=== PATIENT | female | born 2000 | race Caucasian/White ===

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

== ENCOUNTER 2021-10-07 21:13 | Emergency (ER) | payer OTHER, SELFPAY ==
--- NOTE | ~2021-10-07 | XR_ITS ---
EXAMINATION: XR chest 1V portable INDICATION: Cough and shortness of breath TECHNIQUE: Portable AP chest at 2357 hours COMPARISON: 07/06/2020 FINDINGS: The lungs are free of acute opacities. There is no pleural effusion or pneumothorax. The ca rdiomediastinal silhouette is normal. The visualized osseous structures are unremarkable. IMPRESSION: 1. No acute cardiopulmonary abnormality. 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
[2021-10-07 21:16] VITALS: BP 149/82; PULSE 90; RESP 18; TEMP 36.5; O2SAT 100
[2021-10-07 22:46] VITALS: BP 130/71; PULSE 89; RESP 15; O2SAT 99
[2021-10-08 00:12] VITALS: BP 132/73; PULSE 64; RESP 14; O2SAT 99
[2021-10-08] MEDS: SODIUM CHLORIDE 0.9% IV 1,000 ML 999 ML IV CONT (00:13)
[2021-10-08] MEDS: ONDANSETRON INJ 4 MG/2 ML VIAL IV PUSH (00:13)
[2021-10-08 00:29] LABS: Basophils Percent Auto 0.2 % (0.2-1.2); Eosinophils Absolute Auto 0.1 K/mm3 (0-0.3); Eosinophils Percent Auto 0.7 % (0-4.4); Hematocrit 39.7 % (37.0-47.0); Hemoglobin 13.2 g/dL (12.0-15.0); Immature Granulocyte Absolute 0.04 K/mm3 (0.00-0.031); Immature Granulocyte Percent A 0.4 % (0-0.5); Lymphocytes Absolute Auto 3.77 K/mm3 (0.9-3.2); Lymphocytes Percent Auto 35.6 % (18.3-44.2); Mean Corpuscular HGB Conc 33.2 g/dl (32-36); Mean Corpuscular Hemoglobin 29.4 pg (26-34); Mean Corpuscular Volume 88.4 fl (80-100); Mean Platelet Volume 9.4 fl (7.4-10.4); Monocytes Absolute Auto 1.5 K/mm3 (0.1-0.6); Monocytes Percent Auto 14.5 % (2.6-8.5); Neutrophils Absolute Auto 5.2 K/mm3 (1.3-6.7); Neutrophils Percent Auto 48.6 % (45.5-73.1); Platelet Count Result 335 k/mm3 (150-375); Red Blood Count 4.49 M/mm3 (4.2-5.4); Red Cell Distribution Width 14.1 % (11.5-14.5); White Blood Count 10.6 K/mm3 (4.5-10.0)
[2021-10-08 00:42] LABS: Alanine Aminotransferase 22 U/L (4-35); Albumin Level 4.4 g/dL (3.5-5.1); Alkaline Phosphatase 84 U/L (38-126); Anion Gap 12 mmol/L (8-16); Aspartate Amino Transferase 24 U/L (14-36); Bilirubin,Total 0.1 mg/dL (0.2-1.3); Blood Urea Nitrogen 7 mg/dL (7-17); Calcium 9.6 mg/dL (8.4-10.2); Carbon Dioxide 25 mmol/L (22-30); Chloride 101 mmol/L (98-107); Estimated CRCL calculation 141 ml/min; Estimated Glomerular Filt Rate > 60; Glucose 82 mg/dL (65-110); Lipase 39 U/L (23-300); Potassium 3.9 mmol/L (3.4-5.0); Sodium 138 mmol/L (137-145)
--- NOTE | 2021-10-08 00:53 | ED.GENADULT ---
HPI - General Adult General Chief complaint: Abdominal Pain Stated complaint: abdominal and chest pain Time Seen by Provider: 10/07/21 23:21 History of Present Illness HPI narrative: Patient is a 21-year-old female who presents ER with cough and cold. Ongoing for last 5 days. No fevers or chills or sweats. No loss of taste or smell. No known sick contacts. She is unvaccinated against COVID-19. She started to have some aching in her upper abdomen as well as bloating. She endorses nausea that is daily. Patient is 8 weeks along in her . No vaginal bleeding or leakage of fluid. She has had a ultrasound that showed a intrauterine gestational sac. She has establish care with an OB and is scheduled to be seen. Related Data Home Medications Medication Instructions Recorded Confirmed norelgestromin-ethin.estradiol 1 patch TRANSDERMAL WEEKLY 07/06/20 07/06/20 [Xulanmurali] Allergies Allergy/AdvReac Type Severity Reaction Status Date / Time No Known Drug Allergies Allergy Unknown Verified 10/07/21 22:40 Review of Systems Review of Systems: All systems reviewed & are unremarkable except as noted in HPI and below Constitutional: Constitutional: Denies chills, Reports fatigue and Denies fever(s) ENT: Reports nasal congestion and Denies sore throat Respiratory: Respiratory: Reports cough, Denies dyspnea and Denies wheezing Gastrointestinal: Gastrointestinal: Reports abdominal pain (Upper), Denies nausea and Denies vomiting Genitourinary: Genitourinary: Denies abnormal vaginal bleeding, Denies nocturia, Denies dysuria, Denies pelvic pain and Denies vaginal discharge PMFSH Past Medical History Medical History (Updated 10/08/21 @ 02:04 by Ebenezer Gonsales MD) Obese Polycystic ovarian syndrome Surgical History Surgical History (Updated 10/08/21 @ 02:02 by Ebenezer Gonsales MD) No pertinent past surgical history Social History Social History Gender identity (if verbalized by the patient): Female Exam Narrative: GENERAL: Well-appearing, well-nourished, and in no acute distress. HEAD: Normocephalic, atraumatic. CHEST: Clear to auscultation. No respiratory distress. HEART: Regular rate and rhythm. Normal peripheral pulses. ABDOMEN: Soft, nontender, nondistended. EXTREMITIES: Normal range of motion. No edema. SKIN: Warm, dry, no rash. NEURO: Alert and oriented x3. PSYCH: Normal mood and affect. Course Course Emergency Course: Exam unremarkable. Labs reviewed. Chest x-ray without pneumonia. Will swab for Covid. Discharge home. Vital Signs Vital signs: Vital Signs Temperature 97.7 F 10/07/21 21:16 Pulse Rate 90 10/07/21 21:16 Respiratory Rate 18 10/07/21 21:16 Blood Pressure 149/82 H 10/07/21 21:16 Pulse Oximetry 100 10/07/21 21:16 Temperature 97.7 F 10/07/21 21:16 Pulse Rate 89 10/08/21 01:17 Respiratory Rate 20 10/08/21 01:17 Blood Pressure 130/73 10/08/21 01:17 Pulse Oximetry 100 10/08/21 01:17 Medical Decision Making Vital Signs Vital Signs: Vital Signs Temperature 97.7 F 10/07/21 21:16 Pulse Rate 90 10/07/21 21:16 Respiratory Rate 18 10/07/21 21:16 Blood Pressure 149/82 H 10/07/21 21:16 Pulse Oximetry 100 10/07/21 21:16 Temperature 97.7 F 10/07/21 21:16 Pulse Rate 89 10/08/21 01:17 Respiratory Rate 20 10/08/21 01:17 Blood Pressure 130/73 10/08/21 01:17 Pulse Oximetry 100 10/08/21 01:17 Lab Data Result diagrams: 10/08/21 00:04 10/08/21 00:04 Labs: Lab Results 10/08/21 10/08/21 Range/Units 00:04 00:04 WBC 10.6 H (4.5-10.0) K/mm3 RBC 4.49 (4.2-5.4) M/mm3 Hgb 13.2 (12.0-15.0) g/dL Hct 39.7 (37.0-47.0) % MCV 88.4 (80-100) fl MCH 29.4 (26-34) pg MCHC 33.2 (32-36) g/dl RDW 14.1 (11.5-14.5) % Plt Count 335 (150-375) k/mm3 MPV 9.4 (7.4-10.4) fl Immature Gran % (Auto) 0.4 (0-0.5) % Neut % (Auto) 48.6 (45.5-73.1) %
[2021-10-08 01:17] VITALS: BP 130/73; PULSE 89; RESP 20; O2SAT 100
[2021-10-08 02:29] VITALS: BP 118/60; PULSE 78; RESP 16; O2SAT 98
[2021-10-08 14:05] LABS: SARS-CoV-2 RNA PCR Positive
== END 2021-10-08 02:30 | disposition home or self-care (01) ==
PROVIDERS: Emergency Provider Emergency Medicine
DX: O98.511 Other viral diseases complicating pregnancy, first trimester (principal); U07.1 COVID-19; O99.281 Endocrine, nutritional and metabolic diseases complicating pregnancy, first trimester; E28.2 Polycystic ovarian syndrome; O99.211 Obesity complicating pregnancy, first trimester; E66.9 Obesity, unspecified; Z3A.08 8 weeks gestation of pregnancy
CPT/HCPCS: 36415; 71045; 80053; 83690; 85025; 96361; 96374; 99284; C9803; J2405; J7030; U0003; U0005

== ENCOUNTER 2022-02-17 07:59 | Emergency (ER) | payer OTHER, SELFPAY ==
--- NOTE | ~2022-02-17 | XR_ITS ---
XR hip LT min 2V DATE: 02/17/2022 08:35 INDICATION: Sharp left hip pain starting at 4:00 AM today. No injury. 27 week gravid patient. TECHNIQUE: AP and lateral views with gonadal shielding COMPARISON: None FINDINGS: No fracture or dislocation, avascular necrosis or bone destruction. Left hip joint space ap pears well preserved. IMPRESSION: Negative Reviewed, dictated and finalized at location B. IMPRESSION: Negative
[2022-02-17 08:05] VITALS: BP 123/68; PULSE 98; RESP 17; TEMP 36.8; O2SAT 99
--- NOTE | 2022-02-17 09:16 | ED.EXTPRO ---
HPI - Extremity Problem General Chief complaint: Extremity Problem,Nontraumatic Stated complaint: left hip/leg pain Time Seen by Provider: 02/17/22 08:48 Source: patient Mode of arrival: ambulatory Limitations: no limitations History of Present Illness HPI Narrative: 21-year-old female presents with left hip pain. Patient states she woke up at 4 AM with the pain. Patient denies any injury or trauma. Patient states she has a history of hip problems in the past. Patient took Tylenol with no relief. Patient denies any urinary symptoms. No other complaints MD Complaint: extremity pain Onset (ago): hour(s) (5) Pain Consistency: constant Location: left Radiation: proximal (Lower back) and distal (Left knee) Associated symptoms: denies other symptoms Related Data Home Medications Medication Instructions Recorded Confirmed norelgestromin-ethin.estradiol 1 patch TRANSDERMAL WEEKLY 07/06/20 07/06/20 [Xulane] Allergies Allergy/AdvReac Type Severity Reaction Status Date / Time No Known Drug Allergies Allergy Unknown Verified 02/17/22 08:09 Review of Systems Review of Systems: Normal GENERAL: Well-appearing, well-nourished, and in no acute distress. HEAD: Normocephalic, atraumatic. EYES: PERRLA and EOMI. ENT: Nares clear, no rhinorrhea or epistaxis. Mucous membranes moist. NECK: Supple. CHEST: Clear to auscultation. No respiratory distress. HEART: Regular rate and rhythm. No murmur heard. Normal peripheral pulses. ABDOMEN: Soft, nontender, nondistended, normal active bowel sounds. EXTREMITIES: Left hip. SKIN: Warm, dry, no rash. NEURO: No focal deficits. Alert and oriented x3. PSYCH: Normal mood and affect. PMFSH Past Medical History Medical History (Updated 02/17/22 @ 09:53 by Isauro Doyle APRN) Obese Polycystic ovarian syndrome Surgical History Surgical History (Updated 10/08/21 @ 02:02 by Ebenezer Gonsales MD) No pertinent past surgical history Social History Social History Gender identity (if verbalized by the patient): Female Exam Narrative: General appearance: Well-developed, well-nourished Skin: Normal color Head: Normocephalic, nontraumatic Eyes: Clear conjunctiva ENT: Oropharynx normal, ears normal, nose normal Neck: Supple, nontender Chest and respiratory: Airway patent, no respiratory distress, no accessory muscle use Heart: Regular rate/rhythm Abdomen: Soft, nontender, no organomegaly, quiet bowel sounds Vascular: Normal peripheral pulses, normal capillary refill. Musculoskeletal: Normal range of motion, nontender back, tenderness to left lateral hip, left lateral lumbar spine, good range of motion the left hip with no clicking. Neurologic: Alert and oriented ?3, JDE DEVELOPER is normal as tested, no gross motor deficit Course Course Emergency Course: Patient had good relief from pain medicine. Will treat as sciatica. Reevaluation(s) Reevaluation #1: Pain is better. Date: 02/17/22 Time: 09:51 Vital Signs Vital signs: Vital Signs Temperature 36.8 C 02/17/22 08:05 Pulse Rate 98 02/17/22 08:05 Respiratory Rate 17 02/17/22 08:05 Blood Pressure 123/68 02/17/22 08:05 Pulse Oximetry 99 02/17/22 08:05 Temperature 36.8 C 02/17/22 08:05 Pulse Rate 98 02/17/22 08:05 Respiratory Rate 17 02/17/22 08:05 Blood Pressure 123/68 02/17/22 08:05 Pulse Oximetry 99 02/17/22 08:05 MDM - Extremity (Nontraumatic) MDM Narrative Medical decision making narrative: Pain appears coming from left lower back. Sciatic nerve is inflamed. Will treat with steroids, muscle relaxers and exercise. Differential Diagnosis Differential diagnosis: Likely other (Left hip trauma versus left hip bu
[2022-02-17] MEDS: KETOROLAC (*BKC) 60 MG/2 ML VIAL IM (09:28)
[2022-02-17] MEDS: ONDANSETRON HCL ODT 4 MG TABLET PO (09:28)
[2022-02-17] MEDS: CYCLOBENZAPRINE HCL 10 MG TABLET PO (09:28)
[2022-02-17 10:02] VITALS: RESP 16
== END 2022-02-17 10:03 | disposition home or self-care (01) ==
PROVIDERS: Emergency Provider Nurse Practitioner Family; PCP Advanced Practice Midwife
DX: M54.30 Sciatica, unspecified side (principal); M25.552 Pain in left hip
CPT/HCPCS: 73502; 96372; 99283; A9270; J1885

== ENCOUNTER 2022-04-30 11:41 | Outpatient (CLI) | payer OTHER, SELFPAY ==
[2022-04-30 12:22] LABS: Alanine Aminotransferase 12 U/L (6-35); Albumin Level 3.6 g/dL (3.5-5.1); Alkaline Phosphatase 154 U/L (38-126); Anion Gap 5 mmol/L (8-16); Aspartate Amino Transferase 14 U/L (14-36); Bilirubin,Total 0.2 mg/dL (0.2-1.3); Blood Urea Nitrogen 4 mg/dL (7-17); Calcium 8.6 mg/dL (8.4-10.2); Carbon Dioxide 23 mmol/L (22-30); Chloride 108 mmol/L (98-107); Estimated Glomerular Filt Rate > 60; Glucose 89 mg/dL (65-110); Potassium 4.4 mmol/L (3.4-5.0); Sodium 136 mmol/L (137-145)
[2022-05-07 15:21] LABS: Chenodeoxycholic Acid 0.5 umol/L (< OR = 3.9); Cholic Acid <0.5 umol/L (< OR = 2.8); Deoxycholic Acid <0.5 umol/L (< OR = 2.3); Total Bile Acids <1.5 umol/L (< OR = 8.3)
== END 2022-04-30 11:42 | disposition home or self-care (01) ==
PROVIDERS: Visit Provider Advanced Practice Midwife
DX: L29.9 Pruritus, unspecified (principal)
CPT/HCPCS: 36415; 80053; 82542

== ENCOUNTER 2022-05-02 19:07 | Inpatient (IN) | payer OTHER, SELFPAY ==
--- OUTSIDE RECORDS SUMMARY | 2022-05-02 19:13 | XMS_ITS ---
:2000 Author Care Team Providers Name Role Phone Chiquita Mcneil Primary Care Provider Unavailable Allergies Code Code System Name Reaction Severity Status Onset NKDA ? Medications Name Status Start Date Stop Date ? ? amoxicillin 500 mg tablet Completed ? 2021 TAKE 1 TABLET BY MOUTH TWICE DAILY Baby Aspirin Active ? Not available COVID-19 test specimen collection Completed ? 10/19/2021 TEST DIRECTED TODAY cyclobenzaprine 10 mg tablet Active ? Not available TAKE 1 TABLET BY MOUTH THREE TIMES DAILY NEEDED FOR MUSCLE S PASM ID NOW COVID-19 Test Kit Completed ? 022 DIRECTED prednisone 10 mg tablet Completed ? 10/19/19 22 prednisone 20 mg tablet Active ? Not avai lable Active ? Not available promethazine 25 mg tablet Completed ? 2021 TAKE 1 TABLET BY MOUTH EVERY 6 HOURS NEEDED Problems Name Status Onset Date Source ? Body Mass Index 30+ - Obesity Active 10/19/2021 ? Polycystic Ovary Syndrome Active 10/19/2021 ? Marijuana User Active 10/19/2021 ? Active 11/09/2021 ? History of SARS-CoV-2 Active ? ? Procedures Date Name Performed by ? 10/09/2018 Colonoscopy Information not avai lable 10/09/2017 Colonoscopy Information not avai lable 11/09/2021 US, Obstetric, Nuchal Translucency Marykelly wetzel [address] [place] [address] ([address]) 01/04/2022 US, Obst
--- OUTSIDE RECORDS SUMMARY | 2022-05-02 19:13 | XMS_ITS ---
:2000 Author Care Team Providers Name Role Phone ZOLTAN WALDROP MD Senior Compensation Consultant [phone] Allergies Code Code System Name Reaction Severity Status Onset NKDA ? Medications Name Status Start Date Stop Date ? ? amitriptyline 10 mg tablet Completed ? 12/05 azithromycin 250 mg tablet Completed ? 11/20 cefprozil 500 mg tablet Completed ? 04/30/20 19 citalopram 20 mg tablet Completed ? 04/30/20 19 etodolac ER 500 mg tablet,extended release 24 hr Active ? Not available famotidine 10 mg tablet Completed ? 08/24/20 17 hyoscyamine 0.125 mg sublingual tablet Completed ? 04/30/2019 ibuprofen 400 mg tablet Active ? Not avai lable medroxyprogesterone 150 mg/mL intramuscular suspension Completed ? 04/30/2019 metformin 500 mg tablet Active ? Not avai lable Mononessa (28) 0.25 mg-35 mcg tablet Completed ? 11/20/2017 mupirocin 2 % topical ointment Completed ? 1 10/24/2016 naproxen 500 mg tablet Completed ? 8 Nexplanon 68 mg subdermal implant Unknown ? Not available Inject 1 implant by subcutaneous route. nitrofurantoin monohydrate/macrocrystals 100 mg capsule Complete d ? 08/24/2017 ofloxacin 0.3 % ear drops Completed ? 2016 omeprazole 40 mg capsule,delayed release Completed ? 12/05/2019 ondansetron 4 mg disintegrating tablet Completed ? 04/30/2019 penicillin V potassium 500 mg tablet Completed ? 04/30/2019 polyethylene glycol 3350 17 gram/dose oral powder Completed ? 04/30/2019 sertraline 25 mg tablet Completed ? 08/24/20 17 sulfamethoxazole 400 mg-trimethoprim 80 mg tablet Completed ? 08/24/2017 Xulane 150 mcg-35 mcg/24 hr transdermal patch Active ? Not available APPLY 1 PATCH EXTERNALLY TO THE
--- OUTSIDE RECORDS SUMMARY | 2022-05-02 19:13 | XMS_ITS | Encounter Summary ---
:2000 Author Reason for Visit OB visit OB [id number] EDC 05/20/2022 LMP 08/13/2021 Assessment and Plan Assessment Note Patient is _36__weeks . Discuss ed plan. 1. Routine care Discussion Note: None recorded.Patient educational handouts: No information available. Plan of Care Reminders Provider Appointments None recorded. ? ? Lab None recorded. ? ? Referral None recorded. ? ? Procedures None recorded. ? ? Surgeries None recorded. ? ? Imaging None recorded. ? ? Medications Name Start Date ? ? Baby Aspirin ? cyclobenzaprine 10 mg tablet ? TAKE 1 TABLET BY MOUTH THREE TIMES DAILY NEEDED FO R MUSCLE SPASM prednisone 20 mg tablet ? ? Medications Administered None recorded. Vitals Height Weight BMI Blood Pressure 5 ft 3 in 223 lbs 39.5 kg/m2 117/79 mm[Hg] Results Lab Results None recorded. Allergies Code Code System Name Reaction Severity Onset NKDA ? ? ? Problems Name Status Onset Date Source ? Body Mass Index 30+ - Obesity Active 10/19/2021 ? Polycystic Ovary Syndrome Active 10/19/2021 ? Marijuana User Active 10/19/2021 ? Active 11/09/2021 ? History of SARS-CoV-2 Active ? ? Procedures Date Name Performed by ? 10/09/2018 Colonoscopy Information not avai lable 10/09/2017 Colonoscopy Information not avai lable 03/30/2022 US, Obstetric, Follow-up [place]
--- OUTSIDE RECORDS SUMMARY | 2022-05-02 19:14 | XMS_ITS | Encounter Summary ---
:2000 Author Reason for Visit OB visit Assessment and Plan 1. Routine care Discussion Note: None recorded.Patient [...] BMI Blood Pressure 5 ft 3 in 216 lbs 38.3 kg/m2 127/83 mm[Hg] Results Lab Results None recorded. Allergies [...] lable 10/09/2017 Colonoscopy Information not avai lable 03/02/2022 US, Obstetric, Follow-up [place] [address] [place] [address] ([facility] [employer]
--- OUTSIDE RECORDS SUMMARY | 2022-05-02 19:14 | XMS_ITS | Encounter Summary ---
:2000 Author Reason for Visit None recorded. Assessment and Plan None recorded.Discussion Note: None recorded.Patient educational handouts: No information [...] ? ? Medications Administered None recorded. Vitals None recorded. Results Lab Results None recorded. Allergies Code [...] not avai lable 03/30/2022 US, Obstetric, Follow-up [place] [address] [place] [address] ([address]) Vaccine List None recorded. Social History Tobacco Smoking Status Never Smoker What is the highest grade or level of school you have comp
--- OUTSIDE RECORDS SUMMARY | 2022-05-02 19:14 | XMS_ITS | Encounter Summary ---
:2000 Author Reason for Visit None recorded. Assessment and Plan 1. COVID-19 ? US, obstetric, follow-up Discussion Note: None recorded.Patient educational handouts: No information available. Plan of Care Reminders Provider Appointments None recorded. ? ? Lab None recorded. ? ? Referral None recorded. ? ? Procedures None recorded. ? ? Surgeries None recorded. ? ? Imaging US, Obstetric, Follow-up 04/27/2022 John wetzel Medications Name Start Date ? ? Baby [...] not avai lable 03/30/2022 US, Obstetric, Follow-up [place] [address] [place] [address] ([address]) 04/27/2022 US, Obstetric, Follow-up [facility]
--- OUTSIDE RECORDS SUMMARY | 2022-05-02 19:14 | XMS_ITS | Encounter Summary ---
:2000 Author Reason for Visit OB visit OB [id number] EDC 05/20/2022 LMP 08/13/2021 Assessment and Plan Assessment Note Patient is _24__weeks . Discuss ed plan. 1. Routine care [...] ft 3 in 216 lbs 38.3 kg/m2 131/83 mm[Hg] Results Lab Results None recorded. Allergies [...] lable 10/09/2017 Colonoscopy Information not avai lable 01/04/2022 US, Obstetric, 2Nd or 3Rd Trimester Sanjuana marshall
--- OUTSIDE RECORDS SUMMARY | 2022-05-02 19:14 | XMS_ITS | Encounter Summary ---
:2000 Author Reason for Visit OB visit OB [id number] EDC 05/20/2022 LMP 08/13/2021 Assessment and Plan Assessment Note Patient is ___weeks . Discussed plan. Discussion Note: None recorded.Patient educational handouts: No [...] BMI Blood Pressure 5 ft 3 in 218 lbs 38.6 kg/m2 115/74 mm[Hg] Results Lab Results None recorded. Allergies [...] 10/09/2017 Colonoscopy Information not avai lable 03/02/2022 , Obstetric, Follow-up [place] [address]
--- OUTSIDE RECORDS SUMMARY | 2022-05-02 19:14 | XMS_ITS | Encounter Summary ---
:2000 Author Reason for Visit None recorded. Assessment and Plan 1. screening ? US, obstetric, follow-up Discussion Note: None recorded.Patient educational handouts: No information available. Plan of Care Reminders Provider Appointments None recorded. ? ? Lab None recorded. ? ? Referral None recorded. ? ? Procedures None recorded. ? ? Surgeries None recorded. ? ? Imaging US, Obstetric, Follow-up 02/02/2022 John wetzel Medications Name Start Date ? [...] Obstetric, 2Nd or 3Rd Trimester Sanjuana marshall [address] [place] [address] ([address]) 02/02/2022
--- OUTSIDE RECORDS SUMMARY | 2022-05-02 19:14 | XMS_ITS | Encounter Summary ---
:2000 Author Reason for Visit OB visit OB [id number] EDC 05/20/2022 LMP 08/13/2021 Assessment and Plan Assessment Note Patient is _34__weeks . Discuss ed plan. 1. Routine care [...] BMI Blood Pressure 5 ft 3 in 220 lbs 39 kg/m2 131/85 mm[Hg] Results Lab Results None recorded. Allergies [...] not avai lable 03/30/2022 US, Obstetric, Follow-up [place]
--- OUTSIDE RECORDS SUMMARY | 2022-05-02 19:14 | XMS_ITS | Encounter Summary ---
:2000 Author Reason for Visit None recorded. Assessment and Plan 1. Pre-existing maternal disease compli cating ? US, obstetric, follow-up Discussion Note: None recorded.Patient educational handouts: No information available. Plan of Care Reminders Provider Appointments None recorded. ? ? Lab None recorded. ? ? Referral None recorded. ? ? Procedures None recorded. ? ? Surgeries None recorded. ? ? Imaging US, Obstetric, Follow-up 03/02/2022 John wetzel Medications Name Start Date ? [...] lable 10/09/2017 Colonoscopy Information not avai lable 02/02/2022 US, Obstetric, Follow-up [place] [address] [place] [address] ([address]) 0
--- OUTSIDE RECORDS SUMMARY | 2022-05-02 19:14 | XMS_ITS | Encounter Summary ---
:2000 Author Reason for Visit OB visit OB [id number] EDC 05/20/2022 lmp 08/13/2021 Assessment and Plan Assessment Note Patient is __28_weeks . Discuss ed plan. 1. Routine care [...] BMI Blood Pressure 5 ft 3 in 219 lbs 38.8 kg/m2 125/82 mm[Hg] Results Lab Results None recorded. Allergies [...] not avai lable 02/02/2022 US, Obstetric, Follow-up [place]
[2022-05-02 19:43] VITALS: BMI 39.4
[2022-05-02 21:14] VITALS: BP 112/50; PULSE 60; TEMP 36.4
[2022-05-02 21:23] LABS: Hematocrit 36.2 % (37.0-47.0); Hemoglobin 11.8 g/dL (12.0-15.0); Mean Corpuscular HGB Conc 32.6 g/dl (32-36); Mean Corpuscular Hemoglobin 28.2 pg (26-34); Mean Corpuscular Volume 86.6 fl (80-100); Mean Platelet Volume 9.7 fl (7.4-10.4); Platelet Count Result 323 k/mm3 (150-375); Red Blood Count 4.18 M/mm3 (4.2-5.4); Red Cell Distribution Width 14.9 % (11.5-14.5); White Blood Count 21.1 K/mm3 (4.5-10.0)
[2022-05-02 21:40] LABS: Band Neutrophils Percent 4 % (0-6); Lymphocytes Absolute Manual 2.95 K/mm3 (1.1-4.5); Monocytes Absolute Manual 1.26 K/mm3 (0.1-0.90); Monocytes Percent Manual 6 % (3-9); Neutrophils Absolute Manual 16.88 K/mm3 (1.7-7.2); Neutrophils Percent Manual 76 % (46-73); Total Cells Counted 100
[2022-05-02 21:41] LABS: Amphetamine Screen Urine Negative (Negative); Anisocytosis 1+ (NORMAL); Barbiturate Screen Urine Negative (Negative); Benzodiazepines Screen Urine Negative (Negative); Cannabinoid Screen Urine Positive (Negative); Cocaine Screen Urine Negative (Negative); Methadone Screen Urine Negative (Negative); Opiate Screen Urine Negative (Negative); Phencyclidine Screen Urine Negative (Negative); Platelet Estimate Adequate (Adequate)
[2022-05-03] VITALS (144 sets, daily range): BP systolic 58–176; BP diastolic 37–115; PULSE 56–156; RESP 16; TEMP 35.7–37.2; O2SAT 90–100
--- NOTE | 2022-05-03 01:40 | WPDANESEPP ---
Anes - Eval Pre Procedure Procedure: labor epidural Date/Time: 05/03/22 01:40 Surgeon: carlos Preop Diagnosis: pain during labor Pre Op Diagnosis: IOL Patient Data Age: 22 Gender: F Height: 1.6 m Weight: 101 kg Last Vital Signs Temp 36.4 C 05/02/22 21:14 Pulse 60 05/02/22 21:14 BP 112/50 L 05/02/22 21:14 O2 Del Method Room Air 05/02/22 19:43 Allergies Allergy/AdvReac Type Severity Reaction Status Date / Time No Known Drug Allergies Allergy Unknown Verified 02/17/22 08:09 Home Medications Medication Instructions Recorded Confirmed Type aspirin 81 mg tablet 81 mg PO DAILY 04/27/22 04/27/22 History prenat.vits,brian,[id number] 1 tablet PO DAILY 04/27/22 04/27/22 History Laboratory Tests 05/02/22 05/02/22 05/02/22 19:37 19:37 19:37 WBC 21.1 K/mm3 H K/mm3 (4.5-10.0) RBC 4.18 M/mm3 L M/mm3 (4.2-5.4) Hgb 11.8 g/dL L g/dL (12.0-15.0) Hct 36.2 % L % (37.0-47.0) MCV 86.6 fl fl (80-100) MCH 28.2 pg pg (26-34) MCHC 32.6 g/dl g/dl (32-36) RDW 14.9 % H % (11.5-14.5) Plt Count 323 k/mm3 k/mm3 (150-375) MPV 9.7 fl fl (7.4-10.4) Immature Gran % (Auto) Not Reportable Neut % (Auto) Not Reportable Lymph % (Auto) Not Reportable Atkinson % (Auto) Not Reportable Eos % (Auto) Not Reportable Baso % (Auto) Not Reportable Lymph # (Auto) Not Reportable Atkinson # (Auto) Not Reportable Eos # (Auto) Not Reportable Baso # (Auto) Not Reportable Abs Immat Gran (auto) Not Reportable Absolute Neuts (auto) Not Reportable Absolute Nucleated RBC Not Reportable Total Counted 100 Neutrophils % (Manual) 76 % H % (46-73) Band Neutrophils % 4 % % (0-6) Lymphocytes % (Manual) 14.0 % L % (18-44) Monocytes % (Manual) 6 % % (3-9) Nucleated RBC % Not Reportable Abs Neuts (Manual) 16.88 K/mm3 H K/mm3 (1.7-7.2) Abs Lymphs (Manual) 2.95 K/mm3 K/mm3 (1.1-4.5) Abs Monocytes (Manual) 1.26 K/mm3 H K/mm3 (0.1-0.90) Platelet Estimate Adequate (Adequate) Anisocytosis 1+ (NORMAL) Urine Opiates Screen Urine Methadone Screen Ur Barbiturates Screen Ur Phencyclidine Scrn Ur Amphetamine Screen U Benzodiazepines Scrn Urine Cocaine Screen U Cannabinoids Screen RPR Pending Blood Type A Positive Antibody Screen Negative 05/02/22 19:37 WBC RBC Hgb Hct MCV MCH MCHC RDW Plt Count MPV Immature Gran % (Auto) Neut % (Auto) Lymph % (Auto) Atkinson % (Auto) Eos % (Auto) Baso % (Auto) Lymph # (Auto) Atkinson # (Auto) Eos # (Auto) Baso # (Auto) Abs Immat Gran (auto) Absolute Neuts (auto) Absolute Nucleated RBC Total Counted Neutrophils % (Manual) Band Neutrophils % Lymphocytes % (Manual) Monocytes % (Manual) Nucleated RBC % Abs Neuts (Manual) Abs Lymphs (Manual) Abs Monocytes (Manual) Platelet Estimate Anisocytosis Urine Opiates Screen Negative (Negative) Urine Methadone Screen Negative (Negative) Ur Barbiturates Screen Negative (Negative) Ur Phencyclidine Scrn Negative (Negative) Ur Amphetamine Screen Negative (Negative) U Benzodiazepines Scrn Negative (Negative) Urine Cocaine Screen Negative (Negative) U Cannabinoids Screen Positive A (Negative) RPR Blood Type Antibody Screen Patient hx anesthesia problems: none Family hx anesthe
[2022-05-03] MEDS: ACETAMINOPHEN 500 MG TABLET 1000 MG PO (02:28)
[2022-05-03] MEDS: FAMOTIDINE 20 MG TABLET PO (02:29)
[2022-05-03 05:58] LABS: Rapid Plasma Reagin Non-Reactive (NonReactive)
[2022-05-03] MEDS: OXYTOCIN 30 UNITS/NS 500 ML 30 UNITS/500 ML BAG 6 UNITS IV CONT (06:41)
[2022-05-03] MEDS: LACTATED RINGERS 1,000 ML 125 ML IV CONT ×2 (06:41→13:42)
[2022-05-03] MEDS: ONDANSETRON INJ 4 MG/2 ML VIAL IV PUSH ×2 (08:41→23:37)
--- NOTE | 2022-05-03 09:46 | WPDOBADMIT ---
Obstetrics - Admit Note Admission Note: record reviewed. No pertinent additions to the history and/or any subsequent changes in the physical findings that are not consistent with the expected course of the were found. IOL cholestasis, SVE /-2 moderate amount of clear odorless fluid Additions to the history and/or subsequent changes in the physical findings follow. None.
[2022-05-03] MEDS: fentaNYL CITRATE INJ (*CRX) 100 MCG/2 ML VIAL IV PUSH ×2 (12:45→15:46)
[2022-05-03] MEDS: MAGNESIUM SULF 4 GM/WATER100ML 4 GM/100 ML BAG IVPB (14:38)
[2022-05-03] MEDS: MAGNESIUM SULF 20GM/WATER500ML 500 ML 50 MG IV CONT (15:07)
[2022-05-03] MEDS: CALCIUM CARBONATE (TUMS) 500 MG (200 MG ELEMENTAL) (23:41)
[2022-05-04] VITALS (137 sets, daily range): BP systolic 75–154; BP diastolic 50–119; PULSE 31–197; RESP 16–20; TEMP 35.9–36.9; O2SAT 86–100
[2022-05-04] MEDS: LACTATED RINGERS 1,000 ML 75 ML IV CONT (00:22)
[2022-05-04] MEDS: MAGNESIUM SULF 20GM/WATER500ML 500 ML 50 MG IV CONT ×2 (01:01→11:06)
[2022-05-04] MEDS: AMPICILLIN 2 GM/NS 100 ML 2 GM/100 ML BAG IVPB (02:55)
--- NOTE | 2022-05-04 07:09 | PM.OBPRVD ---
OB - Delivery Note Procedure Delivery date: 05/04/22 Events: Gestational Hypertension and Other (Cholestasis) Induction method: AROM, Per Pitocin Protocol and Per Cervidil Protocol Delivery monitor: External FHT, External Uterine and Internal Uterine Route of delivery: Episiotomy description: None Laceration Description: None Specimen: Yes Quantitative Blood Loss (ml): 47 Anesthesia type: Epidural Disposition: Floor [place] Baby Date of : 05/04/22 Time of : 06:56 Weeks of gestation at delivery: 37 gender: Male Weight (pounds): 5 Weight (ounces): 9 presentation: vertex position: Left Occiput Anterior Placenta delivery description: Spontaneous Cord Vessel Description: 3 Vessels, Nuchal Cord (x1), Reduced and Delayed Cord Clamping score one minute: 8 score five minutes: 9
[2022-05-04] MEDS: OXYTOCIN 30 UNITS/NS 500 ML 30 UNITS/500 ML BAG 75 UNITS IV CONT (07:18)
[2022-05-04] MEDS: BENZOCAINE 20% AER SPR (*SP) 56 GM CAN 1 SPRAY TOPICAL (08:21)
[2022-05-04] MEDS: WITCH HAZEL 40 PADS 1 PAD TOPICAL (08:21)
[2022-05-04] MEDS: IBUPROFEN 600 MG TABLET PO ×2 (08:45→23:16)
--- NOTE | 2022-05-04 14:00 | PC.NURSE ---
1052 - 1130 Introductions were made, then consulted with patient to assess needs related to . is being held by a visitor and father of baby is sleeping. Mother with a MIL for cholestasis, epidural, obese, PCOS, and Magnesium Sufate led the conversation with her experience feeding her infant so far and states infant fed well downstairs. Mother works well with her infant with encouragement and education. Encouraged understanding of the benefits of skin to skin (unwrapping and placing vertically on her chest), responsive feeding and how to watch for early feeding signs, frequency of feeding on demand about every 8-12 times in 24 hours (every 2-3 hours), milk production, duration of feeding, signs of adequate intake/output and how to record on the feeding sheet. Reviewed positioning and ear, shoulder, hip alignment, supporting the breast, asymmetrical latch (off-center), and leading with the chin with a big open side gape. was encouraged with these techniques and did not attempt to open mouth or show feeding cues. Mother demonstrated understanding of hand expression and was syringe fed 0.5 mls of colostrum while practicing sucking on a gloved finger. rarely sucks and holds tongue up to the roof of his mouth. When infant sucked he was encouraged with colostrum. After attempts, encouragement for skin to skin, mother states she is going to feed breast and bottle. RN returns to the room and is being held by a visitor when a breast pump is provided due to ineffective . Instructions given on cleaning, care, usage, that there should be no pain, pumping schedule for milk production, collection, and storage of human milk. Parents are encouraged to record pumping schedule on the feeding sheet. Patient was assessed for correct placement, flange size, to pump for comfort and nipple stretching/stimulation for adequate milk production every 3 hours (8 times in 24 hours). Mother voiced understanding of the education shared. Resources used to facilitate learning were used with the mom and baby guide. Mother voiced understanding of responsive feedings, stimulating with skin to skin, hand expressed colostrum, touch, talking to to encourage if it has been 2 -3 hours since the start of the last , to call if infant does not latch or there is discomfort with . Reported to the primary RN.
[2022-05-04] MEDS: ACETAMINOPHEN 325 MG TABLET 650 MG PO (14:19)
[2022-05-04] MEDS: MULTIVIT/MIN/PREN/FOL AC/IRON TABLET 1 TAB PO (14:20)
[2022-05-04] MEDS: DOCUSATE SODIUM 100 MG CAPSULE PO (14:20)
[2022-05-04] MEDS: TETANUS,DIPHTHERIA,AC PERTUSSIS ADULT (0.5 ML) BOOSTRIX IM (21:41)
[2022-05-04] MEDS: LANOLIN (LANSINOH) 7.5 GM CREAM 1 APPLIC TOPICAL (21:42)
[2022-05-05] MEDS: ACETAMINOPHEN 325 MG TABLET 650 MG PO ×3 (00:28→23:10)
[2022-05-05 00:30] VITALS: BP 125/81; PULSE 69; RESP 18; TEMP 36.7
[2022-05-05 04:30] VITALS: BP 126/84; PULSE 63; RESP 16; TEMP 36.9
[2022-05-05 05:46] LABS: Hematocrit 32.6 % (37.0-47.0); Hemoglobin 10.9 g/dL (12.0-15.0)
[2022-05-05 07:00] VITALS: BP 132/85; PULSE 66; RESP 16; TEMP 36.4; O2SAT 98
[2022-05-05] MEDS: MULTIVIT/MIN/PREN/FOL AC/IRON TABLET 1 TAB PO (07:56)
--- NOTE | 2022-05-05 08:05 | WPDANLDPN2 ---
Anes-Prog Note L&D Date/Time: 05/05/22 08:05 Comfortable throughout: labor and delivery Neuraxial method: epidural Epidural/Spinal procedure site: clean & non-tender Neuro status: Neuro function grossly intact. Cardiovascular status: normal Respiratory status: normal Airway patency: baseline Mental status: baseline Post-Op hydration status: normal Vital Signs: Last Vital Signs Temp 36.9 C 05/05/22 04:30 Pulse 63 05/05/22 04:30 Resp 16 05/05/22 04:30 BP 126/84 05/05/22 04:30 Pulse Ox 100 05/04/22 17:11 O2 Del Method Room Air 05/05/22 04:30 Pain score (VAS): 2 I/O: Intake & Output 05/04/22 05/05/22 05/05/22 23:59 07:59 15:59 Intake Total 2100 1500 Output Total 900 1700 Balance 1200 -200 Post-procedural complaints: none Patient feedback: Patient satisfied with anesthetic care.
--- NOTE | 2022-05-05 10:14 | PM.OBPNVD ---
OB - PN: Subj Subjective Date/time seen: 05/05/22 10:14 s/p vaginal delivery day 1 OB - PN: Obj Data Labs CBC & Chem 7: 05/05/22 05:19 Labs: Laboratory Results - last 24 hr 05/05/22 05:19 Hgb 10.9 L Hct 32.6 L OB - PN A/P Plan day: 1 Plan: routine care Time Spent With Patient Time: Total time spent is greater than 50% in coordination of care (as documented) at patient's floor/unit and/or counseling patient: Review of Systems Review of Systems: All systems reviewed & are unremarkable except as noted in HPI and below Exam Const: General: cooperative, healthy appearing and comfortable
--- NOTE | 2022-05-05 10:36 | PC.NURSE ---
[id number] Consulted with patient to see if she had any questions, concerns, or needed any assistance. Primary RN is present in the room after educating mother on the initiating of phototherapy of her . Mother states infant latched once in the last 24 hours, she is pumping, then supplementing infant with formula. Resources reviewed with mother and she voiced understanding of when to call a provider, tire building supervisor for assistance while inpatient or outpatient.
--- NOTE | 2022-05-05 11:19 | PCCCNOTE ---
Received referral for positive THC. Pt. and baby both positive on UDS. Discussed with RN. Met with pt. and significant other, Kit at bedside. Pt. lives with Kit and anticipates discharge home with him and baby when discharged. She indicates this being her first baby and does not have any history with DCFS. She confirms marijuana use. She states obtaining marijuana from local dispensary. She states having much support from local family and friends. She states having all needed items to care for baby at discharge home. Reported pt. situation to DCFS and it does not meet criteria for investigation, information will be documented and kept on file. Provided pt. with resources and encouraged she contact any/all of interest. Nursing reports no further concerns. No further care coordination needs indicated at this time.
[2022-05-05 12:32] VITALS: BP 134/68; PULSE 60; RESP 16; TEMP 36.6; O2SAT 100
[2022-05-05 16:30] VITALS: BP 121/81; PULSE 87; RESP 18; TEMP 36.4; O2SAT 100
[2022-05-05 20:15] VITALS: BP 132/87; PULSE 59; RESP 18; TEMP 36.8
[2022-05-06 00:05] VITALS: BP 136/79; PULSE 58
--- NOTE | 2022-05-06 07:22 | PM.OBPNVD ---
OB - PN: Subj Subjective Date/time seen: 05/06/22 07:22 s/p vaginal delivery day 2 OB - PN: Obj Data Labs CBC & Chem 7: 05/05/22 05:19 OB - PN A/P Plan day: 2 Plan: routine care and discharge home Time Spent With Patient Time: Total time spent is greater than 50% in coordination of care (as documented) at patient's floor/unit and/or counseling patient: Review of Systems Review of Systems: All systems reviewed & are unremarkable except as noted in HPI and below Exam Const: General: cooperative, healthy appearing and comfortable
--- NOTE | 2022-05-06 07:23 | P.DS_ITS ---
DS: Admitting Diagnosis Discharge Date 05/06/22 Admitting Diagnosis IOL, cholestasis OB - DS: Summary OB Procedures : None OB Procedures Intrapartum: Spontaneous Vag Delivery OB Procedures: : None Time Spent with Patient Time attestation: Total time spent providing and/or coordinating discharge services: DS: Data Data Completed and Pending Pending studies at discharge: Pending at discharge 05/04/22 07:02 Surgical [PTH] Routine Discharge Plan Discharge Attending physician on discharge: Kayla Jason Consulting providers: Aniyah Arriola Discharging Clinician: Aniyah Arriola Patient Disposition: Home, Self-Care Activity: pelvic rest Diet: regular Patient Instructions: Antibiotic Form Stand Alone Forms: General Discharge Information Follow-up/Referrals: Aniyah Arriola CNM [Certified Nurse [employer]berene Stone Setter] - 4 Weeks Discharge Medications: New ibuprofen 600 mg Tablet 600 mg PO Q6H PRN (Reason: Cramping) Qty: 30 0RF Continued #2 Tablet 1 tablet PO DAILY Discontinued Low-Dose Aspirin 81 mg Tablet 81 mg PO DAILY Date of admission: 05/02/22 19:07 Primary Care Provider: PHYSICIAN,MAMMOGRAPHY SUPERVISOR Admitting Provider: Chiquita Mcneil Attending physician on admission: Chiquita Mcneil Condition: Stable
--- NOTE | 2022-05-06 07:24 | P.DS_ITS ---
DS: Admitting Diagnosis Discharge Date 05/06/22 Admitting Diagnosis iol, cholestasis OB - DS: Summary OB Procedures : None OB Procedures Intrapartum: Spontaneous Vag Delivery OB Procedures: : None Time Spent with Patient Time attestation: Total time spent providing and/or coordinating discharge services: DS: Data Data Completed and Pending Pending studies at discharge: Pending at discharge 05/04/22 07:02 Surgical [PTH] Routine Discharge Plan Discharge Attending physician on discharge: Kayla Jason Consulting providers: Aniyah Arriola Discharging Clinician: Aniyah Arriola Patient Disposition: Home, Self-Care Activity: pelvic rest Diet: regular Patient Instructions: Antibiotic Form Stand Alone Forms: General Discharge Information Follow-up/Referrals: Aniyah Arriola CNM [Certified Nurse Automobile Taillight Assembler] - 4 Weeks Discharge Medications: New ibuprofen 600 mg Tablet 600 mg PO Q6H PRN (Reason: Cramping) Qty: 30 0RF Continued #2 Tablet 1 tablet PO DAILY Discontinued Low-Dose Aspirin 81 mg Tablet 81 mg PO DAILY Date of admission: 05/02/22 19:07 Primary Care Provider: PHYSICIAN,DIRECTOR OF MIDWIFERY/STAFF MIDWIFE Admitting Provider: Chiquita Mcneil Attending physician on admission: Chiquita Mcneil Condition: Stable
[2022-05-06 08:00] VITALS: PULSE 87; RESP 16; O2SAT 98
[2022-05-06 09:10] VITALS: BP 146/96; PULSE 87; RESP 16; TEMP 36.6; O2SAT 98
--- NOTE | 2022-05-06 11:18 | PC.NURSE ---
Addendum entered by Candelaria Card RN 05/06/22 11:24: The encouragement of pumping consistently was reviewed related to 37 EGA not effectively, mother using a nipple shield, infant taking a bottle, and may have a weak suck if there is a latch. Mother voiced understanding of this information but was also distracted as well. Encouraged mother to ask clarifying questions. Original Note: [id number] Consulted with patient to assess needs related to . Mother led conversation with her experience with feeding baby throughout the evening and nighttime. Mother works well with her with encouragement. Reviewed skin to skin, responding to feeding cues, frequencies of feeding 8-12 times in 24 hours (approximately 2-3 hours), duration of feedings, milk production, intake/output feeding sheet and signs of adequate intake encouraging swallowing at the breast. Mother states she latched last night, has been bottle feeding with formula, and has been hand expressing or using a manual pump to stimulate milk production because she gets more milk out doing it that way rather than using an electric pump. Reviewed stimulating breast with pumping 8 times in 24 hours 1-2 times at night. Also, I clarified that there was a suggestion made to pump her breast 1-2 minutes to stimulate her nipples before attempting to the breast and to pump 10-15 minutes when doesn't latch or takes a bottle to protect the milk supply. Resources used to facilitate learning were used from the mom and baby guide. Mother voiced understanding of the education shared, calling for assistance if the does not latch or if there is discomfort with . Reported to the primary RN.
[2022-05-06] MEDS: ACETAMINOPHEN 325 MG TABLET 650 MG PO (11:28)
[2022-05-06] MEDS: MULTIVIT/MIN/PREN/FOL AC/IRON TABLET 1 TAB PO (11:28)
[2022-05-06 16:27] VITALS: BP 139/80; PULSE 72; RESP 16; TEMP 36.7; O2SAT 99
[2022-05-09 08:46] VITALS: BP 131/75; PULSE 61; RESP 20; TEMP 36.8; O2SAT 99
== END 2022-05-06 17:00 | disposition home or self-care (01) | DRG 560 ==
LOC: ANHLDR 05-03 12:13 → ANHOB2 05-04 09:48
PROVIDERS: Advanced Practice Midwife; Admitting Provider Obstetrics & Gynecology; Visit Provider Obstetrics & Gynecology
DX: O26.62 Liver and biliary tract disorders in childbirth (principal); K83.1 Obstruction of bile duct; O13.4 Gestational [pregnancy-induced] hypertension without significant proteinuria, complicating childbirth; O69.81X0 Labor and delivery complicated by cord around neck, without compression, not applicable or unspecified; O42.92 Full-term premature rupture of membranes, unspecified as to length of time between rupture and onset of labor; O76 Abnormality in fetal heart rate and rhythm complicating labor and delivery; Z3A.37 37 weeks gestation of pregnancy; Z37.0 Single live birth
CPT/HCPCS: 36415; 80307; 85014; 85018; 85025; 86592; 86850; 86900; 86901; 88307; 90715; A9270; J0290; J2405; J2590; J2795; J3010; J3475; J7120

== ENCOUNTER 2022-11-17 15:04 | Outpatient (CLI) | payer OTHER, SELFPAY ==
--- NOTE | 2022-11-21 16:34 | WPDHOLTEREM ---
Holter/Event Monitor Holter/Event Monitor Date of procedure: 11/17/22 Holter/Event Procedure: 48 Hr Holter Monitor Indications: Palpitations Conclusion: 1. 48 hour holter monitor on 11/17/22. 2. Underlying rhythm is sinus rhythm. HR range 44-145 bpm; average HR 78 bpm. HR at 145 bpm was at 15:49. 3. There is 1 premature supraventricular complex. No supraventricular tachycardia. 4. There are 8 premature ventricular complexes. No ventricular tachycardia. 5. No sinoatrial or atrioventricular blocks. No significant pauses greater than 2 seconds. 6. Patient reports symptoms of nausea, fast heart rate which demonstrate sinus rhythm, HR range 82-118 bpm.
== END 2022-11-17 15:05 | disposition home or self-care (01) ==
LOC: ANHCARD 15:05
PROVIDERS: Visit Provider Advanced Practice Midwife
DX: R00.2 Palpitations (principal); R11.0 Nausea
CPT/HCPCS: 93225; 93226

== ENCOUNTER 2025-03-10 08:52 | Emergency (ER) | payer OTHER, SELFPAY ==
--- NOTE | ~2025-03-10 | CT_ITS ---
EXAMINATION: CT abdomen pelvis w con DATE: 03/10/2025 10:50 INDICATION: Abdominal pain and vomiting TECHNIQUE: Computed tomography (CT) of the abdomen and pelvis was performed with 100 mL Omnipaque-350 intravenous contrast. Automated exposure control and iterative reconstruction technique were employe d. The dose-length product was 824.82 mGy-cm. COMPARISON: None FINDINGS: Lung bases are clear. Heart size is normal. No pericardial or pleural effusion. Multiple gallstones i ncluding at the neck of the otherwise normal-appearing gallbladder. Liver is normal. No intra or extr a hepatic biliary ductal dilation. Spleen, pancreas, bilateral adrenal glands and kidneys are normal. Small amount of fluid scattered throughout the colon consistent with nonspecific diarrhea. Small bow el and appendix are normal. Bladder, anteverted uterus and bilateral adnexa are unremarkable. No free intraperitoneal gas or fluid. No pathologically enlarged abdominal or pelvic lymphadenopathy. Mild l umbar levocurvature. IMPRESSION: 1. Cholelithiasis including a gallstone at the neck of the otherwise normal-appearing gallbladder. 2. Fluid throughout the colon consistent with nonspecific diarrhea. Reviewed, dictated and finalized at location A. IMPRESSION: 1. Cholelithiasis including a gallstone at the neck of the otherwise normal-key earing gallbladder. 2. Fluid throughout the colon consistent with nonspecific diarrhea.
[2025-03-10 08:56] VITALS: BP 160/110; PULSE 77; RESP 20; TEMP 36.4; O2SAT 100
--- OUTSIDE RECORDS SUMMARY | 2025-03-10 09:04 | XMS_ITS | Clinical Summary ---
Author Organization [facility] Address [address] [place] [address] Care Team Providers Care Sap Functional Analyst Name Role Phone Eunice Garcia MD Primary Care Provider [phone] Source Comments [facility],non-owned Affiliates and Associated Physician Practices is amultiple site organization consisting of ambulatory clinics and hospital sitesin [place], [place], [place] and [place]. This disclosure is being madepursuant to the Care Everywhere program and may not contain all information available regarding this patient. Last updated 18.[facility] Allergies No known active allergies Medications * Be aware that medications may not be up to date on this document. Alwaysverify current medications with the patient. norelgestromin- ethinyl estradiol (ORTHO-EVRA) 150-35 MCG/24HR patch Apply 1 patch to skin every 7 days Apply it weekly for 3 weeks, and go patchless on week 4 3 patch 2 9 Active celecoxib (CELEBREX) 200 MG capsuleIndicati ons:Chronic knee pain Take 1 capsule by mouth 2 times daily Reasons: Chronic knee pain 60 capsule 3 9 Active Active Problems Problem Noted Date Diagnosed Date Elevated sed rate 09/10/2019 CRP elevated 09/10/2019 Elevated blood pressure read ing without diagnosis of hypertension 12/15/2017 Elevated prolactin level 11/06/2017 Overview (11/06/2017): Aug 30, 2017 - [facility] ([facility]), [address] [place] [address] ([facility]) Insulin 221 uIU/mL (2.6-24.9), prolactin 37.6 ng/mL (4.8-23.3), total testosterone 28.5 ng/dL (20-38, Terence V, age: 11.8-18.6), free testosterone 7.1 pg/mL (ref range not given), fasting glucose 87 mg/dL, (1 hr) 93 mg/dL, (2 hr) 104 mg/dL, TSH 0.788 uIU/mL (0.45-4.5), free T4 (direct) 1.17 ng/dL (0.93-1.60), Assessment & Plan (11/06/2017 3:36 PM HEAD OF PRODUCT): Mildly elevated serum prolactin level; cause uncertain (? Medication effect, OCP) 1. Repeat serum (fasting) prolactin level) 2. Obtain prior laboratory results from [facility] 3. Review medication/prolactin effects 4. Return appointment in four months. 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 016 Joint pain 08/06/2015 BMI (body mass index), pediatric, 95-99% for age 0906/25/2015 Vitamin D deficiency 05/17/2012 Resolved Problems Problem Noted Date Diagnosed Date Resolved Date High risk medication use 11/19/2015 Routine or child health check 06/17/2013 06/25/2015 Knee swelling 09/27/2011 12/05/2016 Immunizations Immunization Administration Dates Next Due INFLUENZA VACCINE, TRIV. (AF LURIA, FLUZONE TRIVALENT; 6MO+) (IIV3) 09/28/2012 DTaP VACCINE IM (6wk-6yrs) 04/21/2006,,2001,07/11,2001 HEP A PEDS 2 DOSE 05/26/2014,06/17/2013 HEP B VACCINE, PED/ADOL 04/05/2002,2001, HIB BOOSTER 04/05/2002,2001,2001 Human Papilloma Virus Flakita valent Vaccine 06/22/2015,05/26/2014,06/17/2013 MENINGOCOCCAL ACWY (MCV4P) VAC IM 12/15/2017,06/2013 MMR 04/21/2006,04/05/2002 PNEUMOCOCCAL CONJ, PEDS 04/05/2002,10/18,2001,05/07 POLIO IPV 04/21/2006, 2,2001,05/07 TDAP (7yrs+) 05/17/2012 VARICELLA 05/17/2012,04/05/2002 Family History Medical History Relation Name Comments Other - Neurologic Maternal Grandmother ? migraine headaches Relation Name Status Comments Maternal Grandmother Social History Tobacco Use Types Packs/Day Years Used Date Smoking Tobacco: Passive Smo ke Exposure - Never Smoker Smokeless Tobacco: Never Comments:Parents smoke outsi de Alcohol Use Standard Drinks/Week Comments No 0 (1 standard drink = 0.6 oz pur e alcohol) Comments No Sex and Gender Information Value Date Recorded Sex Assigned at Not on file Legal Sex Female 9:56 AM HEAD OF PRODUCT Gender Identity Not on file Sexual Orientation Not on file Last Filed Vital Signs Vital Sign Reading Time Taken Comments Blood Pressure 124/76 09/09/2019 12:37 PM [facility] [employer]ODUCT Pulse 84 09/09/2019 12:37 PM [facility] Temperature 37.1 C (98.7 F) 01/01/2020 11:17 AM CDT Respiratory Rate 20 09/09/2019 12:37 PM [facility] PRODUCT Oxygen Saturation 99% 09/20/2018 2:20 PM [facility] PRODUCT Inhaled Oxygen Concentration - - Weight 107.5 kg (237 lb) 01/01/2020 11:17 AM CDT Height 159.6 cm (5' 2.84) 09/09/2019 12:[address] Body Mass Index 42.2 09/09/2019 12:37 PM HEAD OF PRODUCT Plan of Treatment Health Maintenance Due Date Last Done Comments PAP SMEAR 2001 HIV SCREENING 2016 HEPATITIS C SCREENING 02/28/2019 CHLAMYDIA/GONORRHEA SCREENING 06/15/2019 06/15/2018, 11/01/2017 (Done Outside Per Report), 11/01/2017 DTAP/TDAP/TD VACCINES (7 - Td or Tdap) 05/17/2022 05/17/2012, 04/21/2006, 07/18/2002, Additional history exists COVID-19 VACCINE ( season) 2024 DEPRESSION SCREENING 10/09/2024 INFLUENZA VACCINE (Season Ended) 2025 09/28/2012 ZOSTER VACCINE (1 of 2) 2051 HEPATITIS B VACCINE Completed 04/05/2002, 2001, 2001 HIB VACCINE Completed 04/05/2002, 12/2000, 2001 PNEUMOCOCCAL VACCINE Completed 04/05/2002, 2001, 2001, Additional history exists HPV VACCINE Completed 06/22/2015, 05/09, 06/17/2013 MENINGOCOCCAL GROUPS A/C/Y/W VACCINE Completed 12/15/2017, 06/17/2013 MENINGOCOCCAL (Group B) VACCINE SHARED DECISION-MAKING Aged Out No longer eligible based on patient's age to complete this topic Goals Goal Patient Goal Type Associated Problems Recent Progress Patient-Stated? Author Exercise 3X per week (30 min per time) Exercise On track( 018 9:23 AM [facility] PRODUCT) No Shannan Ochoa, KATJA Use safety retraint in car Lifestyle On track( 020 11:17 AM CDT) No Shannan Ochoa, major sales associate Procedure Name Priority Date/Time Associated Diagnosis Comments CHLAMYDIA + GC AMPLIFIED PROBE Routine 06/15/2018 2:32 PM CDT Urinary pain from Last 3 Months or Most Recently Relevant to Health Maintenance Results * CHLAMYDIA + GC AMPLIFIED PROBE (06/15/2018 2:32 PM CDT) Chlamydia KEYANNA Urine Negative Negative [facility] INSURANCE BILL GC KEYANNA Urine Negative Negative [facility] INSURANCE BILL Microbiology URINE / Unknown 06/15/2018 2 :32 PM CDT 06/15/2018 Narrative Resulting Agency Comment [facility] [address] [place] [id number] Eunice Garcia MD LAB - MICROBIOLOGY ORDERABLES Final Result [facility] INSURANCE BILL [address] [place] [address] from Last 3 Months or Most Recently Relevant to Health Maintenance Insurance [facility] Care Teams Sap Functional Analyst Relationship Specialty Start Date End Date Eunice Garcia MD PCP - General 01/05/12
--- OUTSIDE RECORDS SUMMARY | 2025-03-10 09:04 | XMS_ITS | CONTINUITY OF CARE DOCUMENT ---
Author Name anand leliamarlon Address Unknown Organization [facility] Address [address] [place] [address] Phone [phone] Care Team Providers Care Traffic Personnel Supervisor Name Role Phone Joe Barba MD Unavailable RENETTA WOOD Unavailable [phone] HOPRENETTA WILEY Unavailable [phone] PROBLEMS Condition Status Date Provider Notes Bradycardia - sinus active Joe Barba MD Cardiology examination active Joe reeves MD Palpitations active Joe Barba MD SNORING active Joe Barba MD HTN essential active Joe Barba MD ENCOUNTERS Date Type Provider Location Encounter Diag nosis - In-person encounter Office Visit Joe Barba MD [facility] HTN essential - In-person encounter Office Visit Joe Barba MD [facility] SNORING - In-person encounter Office Visit Joe Barba MD [facility] Cardiology examinationPalpitations VITAL SIGNS Date Observation Value Provider Body Mass Index (Ratio) 35.07 kg/m2 Mounika Barba MD blood pressure, diastolic 95 mm[Hg] Berna nkLogfreda blood pressure, systolic 143 mm[Hg] Jessica Pollardogfreda blood pressure, diastolic 95 mm[Hg] Kelsey Fan blood pressure, systolic 143 mm[Hg] Valentino dixon [place] pulse rate 105 /min [facility] saturation, oximetry 98 % Mela [place] weight E&M 198 [lb_av] [facility] blood pressure, cuff size large Kelsey albrecht [place] respiratory rate E&M 16 /min Lou carrion [place] height E&M 63 [in_i] [facility] Body Mass Index (Ratio) 35.25 kg/m2 Mounika Barba MD blood pressure, cuff size regular Ke rri Gruenenfkatarzyna blood pressure, diastolic 96 mm[Hg] Ke rri Gruenenfeldsamuel blood pressure, systolic 156 mm[Hg] Uzair ri Xavi oxygen saturation, oximetry 99 % Leydi Xavi respiratory rate E&M 12 /min Leydi G ritchieenenfeldsamuel pulse rate 73 /min Leydi Olvin er weight E&M 199 [lb_av] Leydi Gralejandronenfe er height E&M 63 [in_i] Leydi Surendrauenenfe er Body Mass Index (Ratio) 34.89 kg/m2 Mounika Barba MD blood pressure, diastolic 75 mm[Hg] Li nkLogfreda blood pressure, systolic 133 mm[Hg] Jessica kLogfreda blood pressure, diastolic 75 mm[Hg] An ya Kevin blood pressure, systolic 133 mm[Hg] Any a Kevin oxygen saturation, oximetry 98 % Diana Kevin respiratory rate E&M 16 /min Diana Pierce rodriguez pulse rate 96 /min Diana Kevin weight E&M 197 [lb_av] Diana Kevin height E&M 63 [in_i] Diana Brown blood pressure, cuff size large An ya Kevin HISTORY OF MEDICATION USE Medication Status Instructions Dates Provider Indications Com ments ergocalciferol (vitamin D2) 1,250 mcg (50,000 unit) capsule active Julio Alston NP cyanocobalamin (vitamin B-12) 500 mcg tablet active TAKE 1 TABLET BY MOUTH EVERY DAY Julio Alston NP buspirone 7.5 mg tablet active Leydi Hurley SOCIAL HISTORY Date Observation Value Provider social history reviewed E&M revi ewed - no changes required Julio Alston NP social history E&M S moking History: Dee Dee mendez has never smoked. Julio Alston NP drug use, illicit, d rug of choice marijuana Julio Alston NP drug use yes Julio Alston NP alcohol use yes Julio Alston NP smoking status Never smoker Mela Larson and social history E&M S moking History: Dee Dee mednez has never smoked. Joe Barba MD social history reviewed E&M revi ewed - no changes required Joe Barba MD smoking status Never smoker Leydi carlin number of grandchildren Joe Barba MD social history E&M S moking History: Dee Dee mendez has never smoked. Joe Barba MD social history reviewed E&M revi ewed - no changes required Joe Barba MD smoking status Never smoker Diana Brown INSURANCE PROVIDERS Payer name Policy type / Coverage type Ennice red democrat ID [place] MEDICAID (2) Medicaid [id number] ADVANCE DIRECTIVES Name Date DISCUSSED - NO DECISION MADE TREATMENT PLAN Date Name Performer [id number],C,d ietary modification first n o meds at present Julio Alston NP [id number],C,P andrea continues to have palpitations. S he has a monitor in place as she awaits loop recorder implantation. Julio Alston NP [id number],S,0 02/03/23 P andrea still has monitor in place. She awaits loop recorder implantation. 01/27/23 R eviewed her tele tracings with her. She is having pauses. Suspect that she may need to have ILR placed to monitor her and determine the PPM. We discussed possibility of needing PPM today for her pauses. Currently she is off of Hydroxyzine anf FLuoxitine and will monitor her for 2 more weeks. Will arrange gor her to get a home sleep study to exclude ANNAMARIA as an underlying cause for bradycardia. Julio Alston NP [id number],S, I ntermittent snoring. Patient is yet to complete the sleep study. n eeds home sleep study Julio Alston DANA [id number],C,Intermittent snoring check for ANNAMARIA Joe Barba MD [id number],S,Echo is pendi ng Joe Barba MD [id number],C, n eed to get 2wk tele the holter did not demonstrate any sig findings only had some pac and rare pvc bsed on description in report I DONT HAV THE TRACINGS TO LOOK AT AND [facility] thryoid GET BLOODWORK FROM [facility] g et echo done ? midsystolic click on exam s ays she doesnt snore had been eval for tonsils before not removed apparently due to not snoring n o preexcitation on ekg Joe Barba MD [id number],C,R eviewed her tele tracings with her. She is having pauses. Suspect that she may need to have ILR placed to monitor her and determine the PPM. We discussed possibility of needing PPM today for her pauses. Currently she is off of Hydroxyzine anf FLuoxitine and will monitor her for 2 more weeks. Will arrange gor her to get a home sleep study to exclude ANNAMARIA as an underlying cause for bradycardia. Joe Barba MD [id number],S,n eed to get 2wk tele the holter did not demonstrate any sig findings only had some pac and rare pvc bsed on description in report I DONT HAV THE TRACINGS TO LOOK AT AND NOTHIGN WAS SENT IN TO OUR OFFICE FROM [facility] a lso check thryoid GET BLOODWORK FROM [facility] g et echo done ? midsystolic click on exam s ays she doesnt snore had been eval for tonsils before not removed apparently due to not snoring n o preexcitation on ekg Joe Barba MD Cardiology:dietary m odification first n o meds at present Julio Alston NP Cardiology:Patient c ontinues to have palpitations. S he has a monitor in place as she awaits loop recorder implantation. Julio Alston NP Cardiology:02/03/23 P atient still has monitor in place. She awaits loop recorder implantation. 01/27/23 R eviewed her tele tracings with her. She is having pauses. Suspect that she may need to have ILR placed to monitor her and determine the PPM. We discussed possibility of needing PPM today for her pauses. Currently she is off of Hydroxyzine anf FLuoxitine and will monitor her for 2 more weeks. Will arrange gor her to get a home sleep study to exclude ANNAMARIA as an underlying cause for bradycardia. Julio Alston NP Cardiology: I ntermittent snoring. Patient is yet to complete the sleep study. n eeds home sleep study Julio Alston NP Cardiology:Intermittent snoring check for ANNAMARIA Joe Barba MD Cardiology:Echo is pending Susan Barba MD Cardiology: n eed to get 2wk tele the holter did not demonstrate any sig findings only had some pac and rare pvc bsed on description in report I DONT HAV THE TRACINGS TO LOOK AT AND NOTHIGN WAS SENT IN TO OUR OFFICE FROM [facility] a lso check thryoid GET BLOODWORK FROM [facility] g et echo done ? midsystolic click on exam s ays she doesnt snore had been eval for tonsils before not removed apparently due to not snoring n o preexcitation on ekg Joe Barba MD Cardiology:Reviewed her tele tracings with her. She is having pauses. Suspect that she may need to have ILR placed to monitor her and determine the PPM. We discussed possibility of needing PPM today for her pauses. Currently she is off of Hydroxyzine anf FLuoxitine and will monitor her for 2 more weeks. Will arrange gor her to get a home sleep study to exclude ANNAMARIA as an underlying cause for bradycardia. Joe Barba MD Cardiology:need to g et 2wk tele the holter did not demonstrate any sig findings only had some pac and rare pvc bsed on description in report I DONT HAV THE TRACINGS TO LOOK AT AND NOTHIGN WAS SENT IN TO OUR OFFICE FROM [facility] a lso check thryowv GET BLOODWORK FROM [facility] g et echo done ? midsystolic click on exam s ays she doesnt snore had been eval for tonsils before not removed apparently due to not snoring n o preexcitation on ekg Joe Barba MD Date Name Sleep Study Home BASIC METABOLIC PANE L W/EGFR Sleep Study Home Monitor - Telemetry (Mobile Cardiac) Lyme, Total Ab Test/ Reflex Monitor - Telemetry (Mobile Cardiac) Complete Echo HISTORY OF PROCEDURES Procedure Date Procedure Name Provider Procedure Notes S tatus Home Sleep Study Joe Barba MD completed EKG Joe Barba MD compl eted EKG Joe Barba MD compl eted
--- OUTSIDE RECORDS SUMMARY | 2025-03-10 09:04 | XMS_ITS | Data Portability ---
Author Organization [facility] [place], Main Office Address [address] [place] [address] Assessment Encounter Date Assessment Date Assessment LastModified by Organization Details LastModified Time 01/17/2023 01/17/2023 Zackary BUSH 01/17/23 Call office if worse, ER is life-threatening illness RTC in 3 months She voices understanding of plan and agrees [email or web address] Not available 01/17/2023 13:00:58 04/28/2023 04/28/2023 NEETA BUSH 01/17/23 Call office if worse, ER is life-threatening illness RTC in 1 month She voices understanding of plan and agrees [email or web address] Not available 04/28/2023 17:19:10 06/09/2023 06/09/2023 NEETA LOMAS 01/17/23 Call office if worse, ER is life-threatening illness RTC in 4 months and PRN She voices understanding of plan and agrees [email or web address] Not available 06/09/2023 13:13:10 Plan of Treatment Reminders Order Date Submit Date Provider Last Modified By Organization Details Last Modified Time Details Appointments None recorded. Lab None recorded. Referral dermatolog ist referral 2023 024 [facility], [address] [place] [address], [address], 08:00:15 Procedures None recorded. Surgeries None recorded. Imaging None recorded. Medication Orders triamcinol one acetonide 0.1 % topical cream 2023 024 [facility] #[id number], [address], [place], [address], 4 15:19:16 omeprazole 20 mg capsule,de layed release 2022 023 [id number], [address], [place], [address], 4 15:02:22 famotidine 40 mg tablet 2022 023 [id number], [address], [place], [address], 4 15:02:05 omeprazole 20 mg capsule,de layed release 2022 023 [id number], [address], [place], [address], 4 15:02:22 famotidine 40 mg tablet 2022 023 [id number], [address], [place], [address], 4 15:02:05 Patient TargetsNo targets recorded. Patient Instructions Encounter Date Encounter Id Patient Instructions Last Modified By Organization Details Last Modified Time 01/17/2023 [id number] INFLUENZA VACCIN E Recommended today, but patient declined Ordered Patient will get at local pharmacy/health department Raghu t has egg allergy Your next one in the fall of Your next one in the fall of 2022 TD/TDAP Patient will get at local pharmacy/health department MAMMOGRAM No screening indicated at this time/ no family history CERVICAL SCREENING/PELVIC EXAMINATION No screening necessary patient is up to date COLORECTAL SCREENING No screening necessary until age 45 DEPRESSION SCREENING Negative BMI Obesity Continue healthy eating & exercise NUTRITION Continue healthy eating & exercise PHYSICAL ACTIVITY Need more activity Recommendation of 30 minutes of daily activity VISION Recommended today ALCOHOL USE No alcohol use TOBACCO USE non smoker SEXUALLY ACTIVE Yes, Patient is in monogamous relationship GLUCOSE SCREENING Not needed LIPID SCREENING Not needed [email or web address] Not available 01/17/2023 13:02:11 02/08/2024 [id number] Follow up in 6 months Prescription sent to pharmacy Referral to dermatology [email or web address] Not available 02/08/2024 15:19:12 Reason for Referral Lei Maker Referral for A topic dermatitis Referring Physician: Teresa Peres, Internal Medicine, Encounter Date: 02/08/2024 Results Created Date Observation Date Name Description Value Unit Range Abnormal Flag Note LastModifiedBy Organization Detail LastModifiedTime 12/06/1911/17/2022 david r monit or No observ ation record ed. [id number] Not Available 12/08/2022 02:04:53 01/07/2011/16/2022 david r monit or No observ ation record ed. [email or web address] [place] [address] [facility] [address], [place], [address], 01/09/2023 16:44:36 01/12/20 23 01/11/2023 david r monit or No observ ation record ed. [email or web address] [facility] [address], [place], [address], 01/11/2023 10:44:50 01/25/20 23 01/24/2023 david r monit or No observ ation record ed. [email or web address] [facility] [address], [place], [address], 01/25/2023 14:03:38 02/08/20 23 02/06/2023 , [facility] ardio gram No observ ation record ed. [email or web address] [place] [address] [facility] [address], [place], [address], 02/07/2023 14:06:17 02/17/20 23 02/16/2023 david r monit or No observ ation record ed. [email or web address] [place] [address] [facility] [address], [place], [address], 02/16/2023 12:00:44 02/17/20 23 02/16/2023 david r monit or No observ ation record ed. [email or web address] [facility] [address], [place], [address], 02/20/2023 10:04:40 02/28/20 23 02/27/2023 home sleep study No observ ation record ed. [email or web address] [facility] [address], [place], [address], 03/07/2023 16:54:01 Result Notes None recorded. Problems Name Problem SNOMED Code Status Onset Date Resolution Date Notes Provider Name and Address Organization Details Recorded Time Vitamin D deficiency 04415760 Active 2022 Teresa Peres APRN [address], [place], [address] , [employer] 4 12:28:17 Cobalamin deficiency 892642252 Active 2022 Teresa Peres APRN [address], [place], [address] , [employer] 4 12:27:55 Intermitte nt palpitatio ns 821512227 Active 2022 Not Available 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 Active 2022 Not Available [facility] 3 15:14:40 Obesity 451387907 Active 2022 Not Available [facility] 3 15:14:40 Sleep apnea 82894595 Active 2022 Teresa Peres APRN [address], [place], [address] , [employer] 4 12:28:05 Gastroesop hageal reflux disease without esophagiti s 952916508 Active 2022 Teresa Peres APRN [address], [place], [address] , [employer] 4 12:27:57 Contact dermatitis caused by urushiol from [facility] [place] tristen 048637416 Active [address], [place], [address] , [employer] 4 15:14:37 Atopic dermatitis 01005690 Active [address], [place], [address] , [employer] 4 15:16:17 Problem Notes None recorded. Procedures Surgical History Date Name Laterality Status Provider Name and Address Organization Details Recorded Time colonoscopy completed Lou Benavides MA [facility] 02/08/2024 15:03:38 Imaging Results None recorded. Procedure Notes None recorded. Medical Equipment None Reported. Allergies Allergen ID Allergen Name Allergen Category Reaction Reaction Severity Criticality Documentation Date Start Date Code Code System Note Provider Name and Address Organization Details Recorded Time 66995 No known allergy (situatio n) Not available Not available Not available Not available 02/07/2024 10305 6003 SNOMED Teresa Peres APRN [address], [place], [address], [employer] 4 12:24:59 No known drug allergies Medications Name Sig Start Date Stop Date Status Note LastModified by Organization Details LastModified Time cyclobenzap rine 10 mg tablet TAKE 1 TABLET BY MOUTH THREE TIMES DAILY NEEDED FOR MUSCLE SPASM 12/06 completed Not Available Not Available Not Available famotidine 40 mg tablet Take 1 tablet every day by oral route at bedtime. 02/07 completed Not Available Not Available Not Available prednisone 20 mg tablet 12/06 completed Not Available Not Available Not Available triamcinolo ne acetonide 0.1 % topical cream APPLY THIN COAT TO AFFECTED AREA TWICE A DAY active Not Available Not Available No t Available cyanocobala min (vit B-12) 500 mcg tablet TAKE 1 TABLET BY MOUTH EVERY DAY active Not Available Not Available No t Available fluoxetine 10 mg capsule TAKE 1 CAPSULE BY MOUTH EVERY DAY 01/17 completed Not Available Not Available Not Available buspirone 7.5 mg tablet TAKE 1 TABLET BY MOUTH TWICE A DAY 04/28 completed Not Available Not Available Not Available omeprazole 20 mg capsule,del ayed release Take 1 capsule every day by oral route in the morning. 02/07 completed Not Available Not Available Not Available hydroxyzine HCl 25 mg tablet TAKE 1 TABLET BY MOUTH THREE TIMES DAILY NEEDED FOR ANXIETY active Not Available Not Available No t Available ergocalcife rol (vitamin D2) 1,250 mcg (50,000 unit) capsule TAKE 1 CAPSULE EVERY WEEK BY ORAL ROUTE. active Not Available Not Available No t Available ibuprofen 600 mg tablet TAKE 1 TABLET BY MOUTH EVERY 6 HOURS NEEDED FOR CRAMPING 12/06 completed Not Available Not Available Not Available fluoxetine 20 mg capsule active Not Available Not Available Not Available amoxicillin 875 mg-potassiu m clavulanate 125 mg tablet TAKE 1 TABLET BY MOUTH TWICE A DAY 02/07 completed Not Available Not Available Not Available Vitals Date Recorded Body mass index (BMI) Body height Oxygen saturation Oxygen saturation in Arterial blood by Pulse oximetry Heart rate Body temperature Body weight Systolic blood pressure Diastolic blood pressure Provider Name and Address Organization Details Last Updated DateTime 3 35.8 kg/m2 160.02 cm 99 % 99 % 88 /min 97.7 [degF] 78649.6 6 g 132 mm[Hg] 82 mm[Hg] Not Available [employer] 3 02:04:43 Date Recorded Body height Body mass index (BMI) Body weight Body temperature Heart rate Oxygen saturation Oxygen saturation in Arterial blood by Pulse oximetry Systolic blood pressure Diastolic blood pressure Provider Name and Address Organization Details Last Updated DateTime 3 160.02 cm 34.9 kg/m2 97149.7 g 97.8 [degF] 88 /min 98 % 98 % 124 mm[Hg] 82 mm[Hg] Richelle Kiser MA [facility] [employer] [facility] 3 12:09:43 Date Recorded Body height Body mass index (BMI) Body weight Body temperature Heart rate Oxygen saturation Oxygen saturation in Arterial blood by Pulse oximetry Systolic blood pressure Diastolic blood pressure Provider Name and Address Organization Details Last Updated DateTime 4 160.02 cm 30.8 kg/m2 05584.0 7 g 97.4 [degF] 79 /min 96 % 96 % 110 mm[Hg] 72 mm[Hg] Lou Benavides MA [facility] [employer] [facility] 4 15:01:40 Date Recorded Body height Body mass index (BMI) Body weight Body temperature Heart rate Oxygen saturation Oxygen saturation in Arterial blood by Pulse oximetry Systolic blood pressure Diastolic blood pressure Provider Name and Address Organization Details Last Updated DateTime 3 160.02 cm 35.3 kg/m2 84415.8 8 g 97.6 [degF] 76 /min 97 % 97 % 124 mm[Hg] 76 mm[Hg] Richelle Kiser MA [facility] [employer] [facility] 3 16:17:19 Date Recorded Body height Body mass index (BMI) Body weight Body temperature Heart rate Oxygen saturation Oxygen saturation in Arterial blood by Pulse oximetry Systolic blood pressure Diastolic blood pressure Provider Name and Address Organization Details Last Updated DateTime 3 160.02 cm 34.7 kg/m2 62944.1 g 97.8 [degF] 78 /min 97 % 97 % 132 mm[Hg] 78 mm[Hg] Richelle Kiser MA [facility] [employer] [facility] 3 11:15:58 Social History Question Answer Notes LastModified by Organizat ion Details LastModified Time Tobacco Smoking Status Never Smoker Not Available [facility] 12/08/2022 02:04:36 What Is Your Level Of Caffeine Consumption? Occasional [id number] [id number] Information not available 12/08/2022 In The 14 Days Before Symptom Onset, Have You Had Close Contact With A Laboratory-confir med COVID-19 While That Case Was Ill? No MIGRATION.16579 71044 Information not available 12/08/2022 In The 14 Days Before Symptom Onset, Have You Had Close Contact With A Person Who Is Under Investigation For COVID-19 While That Person Was Ill? No MIGRATION.55069 [id number] Information not available 12/08/2022 What Type Of Diet Are You Following? REGULAR MIGRATION.62844 46446 Information not available 12/08/2022 Which Illicit Or Recreational Drugs Have You Used? Marijuana Information not available 02/08/2024 What Is The Highest Grade Or Level Of School You Have Completed Or The Highest Degree You Have Received? PT07655-9 MIGRATION.17939 25391 Information not available 12/08/2022 Have There Been Any Changes To Your Family Or Social Situation? No MIGRATION.88585 11708 Information not available 12/08/2022 What Is The Fluoride Status Of Your Home? Unknown MIGRATION.60731 06325 Information not available 12/08/2022 Are There Any Guns Present In Your Home? No MIGRATION.89474 91363 Information not available 12/08/2022 Do You Use Insect Repellent Routinely? Yes MIGRATION.40832 90325 Information not available 12/08/2022 Where Do You Live? SingleLevelHouse MIGRATION.57668 52188 Information not available 12/08/2022 What Was The Date Of Your Most Recent Tobacco Screening? 02/08/2024 Information not available 02/08/2024 How Many Children Do You Have? 0 Information not available 02/08/2024 Do You Have Any Pets? Yes MIGRATION.48315 45800 Information not available 12/08/2022 What Is Your Relationship Status? Single MIGRATION.93006 44015 Information not available 12/08/2022 Do You Use Your Seat Belt Or Car Seat Routinely? Yes MIGRATION.07568 12546 Information not available 12/08/2022 Do You Have Smoke And Carbon Monoxide Detectors In Your Home? Yes MIGRATION.19861 06768 Information not available 12/08/2022 Are You Passively Exposed To Smoke? No MIGRATION.01113 64471 Information not available 12/08/2022 Are There Any Smokers In Your House? No MIGRATION.71752 67516 Information not available 12/08/2022 Do You Use Sunscreen Routinely? Yes MIGRATION.80286 54073 Information not available 12/08/2022 Have You Recently Traveled Abroad? No MIGRATION.94363 12858 Information not available 12/08/2022 Have You Used IV Drugs? No Information not available 02/08/2024 Do You Have Any Dietary Restrictions? No MIGRATION.21572 35650 Information not available 12/08/2022 Sex: Unknown Functional Status Question Answer Note LastModified by [employer] Details LastModified Time Do you use any illicit or recreational drugs? Yes cannabis Information not available 02/08/2024 Do you or have you ever used any other forms of tobacco or nicotine? Yes MIGRATION.249939 8860 Information not available 12/08/2022 What is your level of alcohol consumption? Occasional MIGRATION.348736 2276 Information not available 12/08/2022 Do you or have you ever used smokeless tobacco? 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 Current user of electronic cigarettes MIGRATION.035165 7519 Information not available 12/08/2022 What is your exercise level? Occasional MIGRATION.862898 2028 Information not available 12/08/2022 Mental Status Question Answer Note LastModified by [employer] Details LastModified Time Do you feel stressed (tense, restless, nervous, or anxious, or unable to sleep at night)? [id number] MIGRATION.[id number] 6 Information not available 12/08/2022 Family History Relationship Description Onset Age of this Age Resolved Age Notes LastModified by Organization Details LastModified Time Father No current problems or disability [email or web address] Not available 02/07 15:02:38 Mother No current problems or disability [email or web address] Not available 02/07 15:02:38 Medical History Condition Response GASTROINTESTINAL DISORDER Y Gynecological History Statement/Question Response How many live births 1 Date of Last Pap Current Control Method None Age at Menarche 14 Date of Last Colonoscopy Date of LMP 02/05/2024 Obstetrics History GPAL:G 2 P 1 0 1 1 Type Value Multiple Births 0 Full Term 1 Induced 0 Spontaneous 1 Premature 0 Living 1 Ectopics 0 Total 2 Immunizations Vaccine Type Date Status Note Provider Nam e and Address Organization Details Recorded Time Hib, unspecified formulation 1 krystal Peres APRN [address], [place], [address], [employer] [facility] [employer] 02/07/2024 12:24:23 Hib-Hep B 2 completed [address], [place], [address], [employer] 02/07/2024 12:24:23 Hib-Hep B [address], [place], [address], [employer] [facility] [employer] 02/07/2024 12:24:23 IPV 2 completed [address], [place], [address], [employer] 02/07/2024 12:24:23 IPV 6 krystal Peres APRN [address], [address], [place], [address], [employer] [facility] [employer] 02/07/2024 12:24:23 IPV [address], [place], [address], [employer] [facility] [employer] 02/07/2024 12:24:23 IPV [address], [place], [address], [employer] 02/07/2024 12:24:23 MMR [address], [place], [address], [place] [facility] 02/07/2024 12:24:23 MMR 6 completed Teresa Peres APRN [address], [place], [address], [facility] 02/07/2024 12:24:23 pneumococcal conjugate PCV 7 2 completed Teresa Peres APRN [address], [place], [address], [facility] 02/07/2024 12:24:23 pneumococcal conjugate PCV 7 2 completed Teresa Peres APRN [address], [place], [address], [facility] 02/07/2024 12:24:23 pneumococcal conjugate PCV 7 1 completed Teresa Peres APRN [address], [place], [address], [facility] 02/07/2024 12:24:23 pneumococcal conjugate PCV 7 1 completed Teresa Peres APRN [address], [place], [address], [facility] 02/07/2024 12:24:23 Tdap 2 completed Teresa Peres APRN [address], [place], [address], [facility] 02/07/2024 12:24:23 Tdap 2 completed Tersea Peres APRN [address], [place], [address], [facility] 02/07/2024 12:24:23 varicella 2 completed Teresa Peres APRN [address], [place], [address], [facility] 02/07/2024 12:24:23 varicella 2 completed Teresa Peres APRN [address], [place], [address], [facility] [employer] [facility] 02/07/2024 12:24:23 Influenza, split virus, trivalent, preservative 2 completed Teresa Peres APRN [address], [place], [address], [facility] [employer] [facility] 02/07/2024 12:24:23 HPV, quadrivalent 4 completed Teresa Peres APRN [address], [place], [address], [facility] [employer] [facility] [employer] [facility] 02/07/2024 12:24:23 HPV, quadrivalent [address], [place], [address], [facility] [employer] [facility] 02/07/2024 12:24:23 HPV, quadrivalent 5 [address], [place], [address], [facility] [employer] [facility] 02/07/2024 12:24:23 Hep B, adolescent or pediatric 1 completed [address], [place], [address], [facility] [employer] [facility] 02/07/2024 12:24:24 Hep A, ped/adol, 2 dose 4 completed [address], [place], [address], [facility] [employer] [facility] 02/07/2024 12:24:24 Hep A, ped/adol, 2 dose 3 completed [address], [place], [address], [facility] [employer] [facility] 02/07/2024 12:24:24 meningococcal MCV4P 8 completed Teresa Peres APRN [address], [place], [address], [facility] [employer] [facility] 02/07/2024 12:24:24 meningococcal MCV4P 3 completed Teresa Peres, [employer] [address], [place], [address], [facility] 02/07/2024 12:24:24 DTaP 6 completed Teresa Peres [employer] [address], [place], [address], [facility] 02/07/2024 12:24:24 DTaP 1 completed Teresa Peres APRN [address], [place], [address], [facility] 02/07/2024 12:24:24 DTaP 1 completed Teresa Peres APRN [address], [place], [address], [facility] 02/07/2024 12:24:24 DTaP 2 completed Teresa Peres APRN [address], [place], [address], [facility] 02/07/2024 12:24:24 Past Encounters Encounter ID Performer Location Encounter Start Date Encounter Closed Date Diagnosis/Indication Diagnosis SNOMED-CT Code Diagnosis ICD10 Code Diagnosis Note [id number] Hola martinez MD [facility] [address] [place] [address] 12/06/2022 00:00:00 12/06/2022 12:57:18 [id number] Hola martinez MD [facility] [address] [place] [address] 01/17/2023 12:02:05 01/17/2023 12:21:52 Intermittent palpitations 638789292 R00.2 now following cardiology - Dr. Abreu currently wearing heart monitorhas upcoming echo and follow upno new meds at this time Generalize d anxiety disorder 85095137 F41.1 on meds from [employer]- on fluoxetine and prn hydroxyzin e- cardiology had her stop thesehas appt with [facility] [employer] tomorrow to discuss other optionsCal l office if any change in mood or behaviorSh e declines psychiatry referral today Irritable bowel syndrome 01204006 K58.9 Eventually wants to see GI, but she wants to wait on this referral until she is finished with her cardiology work up Adult [facility] examination 258486165 Z00.01 Vitamin D deficiency 347 16091 E55.9 on supplement Vitamin B1 2 deficiency (non anemic) 51898619 E53.8 on supplement High densi ty lipoprotein deficiency 736544686 E78.6 recommend healthy, well balanced mealsfocus on lean meats, fresh vegetables , fresh fruits, whole grainsredu ce fast/proce ssed foods or eating out to no more than 1-2 times per weekaim to get 30 min of exercise most days of the week- walking is a great choicealso recommend resistance training 2-3 times per week can add OTC fish oil Depression screening 171 027336 Z13.31 Obesity 357260549 E66.9 recommend healthy, well balanced mealsfocus on lean meats, fresh vegetables , fresh fruits, whole grainsredu ce fast/proce ssed foods or eating out to no more than 1-2 times per weekaim to get 30 min of exercise most days of the week- walking is a great choicealso recommend resistance training 2-3 times per week [id number] Hola martinez MD [facility] [address] [facility], [facility] [address] [place] [address] 04/28/2023 16:09:15 04/28/2023 16:28:55 Intermittent palpitations [id number] R00.2 now following cardiology - Dr. Garret barcenass currently Generalize d anxiety disorder [id number] F41.1 on fluoxetine from GYNCall office if any change in mood or behaviorSh e declines psychiatry referral today Irritable bowel syndrome [id number] K58.9 Eventually wants to see GI, but she wants to wait on this referral until she is finished with her cardiology work up Vitamin D deficiency [id number] 80619 E55.9 on supplement Vitamin B1 2 deficiency (non anemic) 63527806 E53.8 on supplement High densi ty lipoprotein deficiency [id number] E78.6 recommend healthy, well balanced mealsfocus on lean meats, fresh vegetables , fresh fruits, whole grainsredu ce fast/proce ssed foods or eating out to no more than 1-2 times per weekaim to get 30 min of exercise most days of the week- walking is a great choicealso recommend resistance training 2-3 times per week can add OTC fish oil Obesity [id number] E66.9 recommend healthy, well balanced mealsfocus on lean meats, fresh vegetables , fresh fruits, whole grainsredu ce fast/proce ssed foods or eating out to no more than 1-2 times per weekaim to get 30 min of exercise most days of the week- walking is a great choicealso recommend resistance training 2-3 times per week Sleep apnea [id number] G47 .30 awaiting CPAP- cardiology ordering Gastroesop hageal reflux disease without esophagitis [id number] K21.9 Start omeprazole in the morning and famotidine at HS-she is aware of side effects, risks, and benefits Acid reduction lifestyle measures discussedI f no improvemen t at follow-up, we will plan for EGD referral [id number] Hola martinez MD [facility] [place] [address] [facility], [address] [place] [address] 06/09/2023 11:06:59 06/09/2023 11:32:51 Intermittent palpitations [id number] R00.2 now following cardiology - Dr. Combs meds currently Generalize d anxiety disorder [id number] F41.1 on fluoxetine from GYNCall office if any change in mood or behaviorSh e declines psychiatry referral today Irritable bowel syndrome 01678669 K58.9 Eventually wants to see GI, but she wants to wait on this referral until she is finished with her cardiology work up Vitamin D deficiency 347 23843 E55.9 on supplement Vitamin B1 2 deficiency (non anemic) 73106995 E53.8 on supplement High densi ty lipoprotein deficiency 686049801 E78.6 recommend healthy, well balanced mealsfocus on lean meats, fresh vegetables , fresh fruits, whole grainsredu ce fast/proce ssed foods or eating out to no more than 1-2 times per weekaim to get 30 min of exercise most days of the week- walking is a great choicealso recommend resistance training 2-3 times per week can add OTC fish oil Obesity 050808421 E66.9 recommend healthy, well balanced mealsfocus on lean meats, fresh vegetables , fresh fruits, whole grainsredu ce fast/proce ssed foods or eating out to no more than 1-2 times per weekaim to get 30 min of exercise most days of the week- walking is a great choicealso recommend resistance training 2-3 times per week Sleep apnea 56503420 G47 .30 awaiting CPAP- cardiology ordering Gastroesop hageal reflux disease without esophagitis [id number] K21.9 on omeprazole in the morning and famotidine at HS-she is aware of side effects, risks, and benefitsAc id reduction lifestyle measures discussed [id number] Hola martinez MD [facility] [address] [facility], [address] [place] [address] 02/08/2024 14:51:53 02/08/2024 15:21:13 Atopic dermatitis [id number] L20.9 Health Concerns Section Related Observation LastModified by Organization Detai ls LastModified Time None Recorded Concern Status LastModified by Organization Details LastModified Time None Recorded Advance Directives Directive None Recorded Payers Encounter Date Sequence Insurance Name Policy Number Policy Foote Covered Member ID Foote Member ID Guarantor Name 01/17/2023 1 [facility] ON OR AFTER 04/08/21 (MEDICAID REPLACEMENT - HMO) Manjula Head [id number] Manjula Head 04/28/2023 1 [facility] ON OR AFTER 04/08/21 (MEDICAID REPLACEMENT - HMO) Manjula Head [id number] Manjula Head 06/09/2023 1 [facility] ON OR AFTER 04/08/21 (MEDICAID REPLACEMENT - HMO) Manjula Head [id number] Manjula Head 02/08/2024 1 [facility] ON OR AFTER 04/08/21 (MEDICAID REPLACEMENT - HMO) Manjula Head [id number] Manjula Head Notes Date Note Type Note Provider Name and Address Organization Details Recorded Time 01/17/2023 text/html Manjula presents today for follow-up. She is also due for annual wellness exam. She did see Cardiology. She is currently wearing a Holter monitor. She reports she had some abnormalities and her performance management consultant called her last week and told her to stop her fluoxetine and her hydroxyzine. She reports she has noticed an improvement in the palpitations and she stopped these meds. She denies any syncope or presyncope. She denies any chest pain. She also has her echo scheduled for a couple weeks and she also has her follow-up with Cardiology scheduled as well. Her anxiety meds are managed by her shortage worker. She reports she has an appointment with them tomorrow to discuss other options. She denies any SI or HI today. We discussed her labs today. She is taking the weekly vitamin-D and a daily vitamin B12. She has noticed an improvement in energy. We also discussed her other labs results. KIRSTEN Oakes [address], [place], [address], [facility] [employer] 01/17/2023 13:02:40 04/28/2023 text/html Manjula presents today for follow-up. She is now changed cardiologists and is seeing Dr. Young Davis. She never did end up getting the ILR implanted. Patient tells me that a lot of her palpitations are happening while she is sleeping. She was diagnosed with sleep apnea. She reports the performance management consultant is working on getting her a CPAP. Her polygraph operator now has her back on the fluoxetine. She reports that is doing much better controlling her anxiety. She feels like this is a good dose for her. She denies any SI or HI today. She is taking her vitamin-D and her vitamin B12. Her main complaint today is she is having issues with acid reflux. She has tried figv-wpl-uqtpdbv meds before with no improvement. She was previously on acid medication when she was a teenager as she has had EGD and colonoscopy done before [facility]. She reports this is worse at night. She wakes up with significant belching and acid reflux. She does admit to eating close to bedtime. She denies any blood in the stool, dark tarry stools, or any blood in the emesis. She denies any vomiting. KIRSTEN Oakes [address], [address], [place], [address], [employer] 04/28/2023 17:20:24 06/09/2023 text/html Manjula presents today for follow-up. Last visit, we added back the omeprazole and added famotidine at HS. She reports all of her acid reflux symptoms are now completely resolved. She is no longer having the abdominal pain, the belching or waking up with reflux. She is feeling overall much better. She is back on the fluoxetine from her shortage worker. She reports her anxiety is much better controlled. She denies any SI or HI today. She has been working on eating better nutrition and getting some exercise. She has lost about 20 lb. She tells me since that has happened she overall is feeling better. VIK Oakes-Kaylee [address], [place], [address], [facility] 06/09/2023 13:13:37 02/08/2024 text/html Carmita presents today to establish care. She states that she has a rash around her neck. She denies itching to the areas. She was also stating that she has had some stomach issues that she would like to work on. She states that her IBS will wax and an between constipation and diarrhea. She is also in need of a sleep study which is being referred by her performance management consultant. 04/28/2023Manjula presents today for follow-up. She is now changed cardiologists and is seeing Dr. Young Davis. She never did end up getting the ILR implanted. Patient tells me that a lot of her palpitations are happening while she is sleeping. She was diagnosed with sleep apnea. She reports the performance management consultant is working on getting her a CPAP. Her polygraph operator now has her back on the fluoxetine. She reports that is doing much better controlling her anxiety. She feels like this is a good dose for her. She denies any SI or HI today. She is taking her vitamin-D and her vitamin B12. Her main complaint today is she is having issues with acid reflux. She has tried nuqu-kqf-xnttcjj meds before with no improvement. She was previously on acid medication when she was a teenager as she has had EGD and colonoscopy done before [facility]. She reports this is worse at night. She wakes up with significant belching and acid reflux. She does admit to eating close to bedtime. She denies any blood in the stool, dark tarry stools, or any blood in the emesis. She denies any vomiting. Teresa Peres, [employer] [address] [facility], [facility] [address], [place], [address], [place] [facility] 02/08/2024 15:19:25 OBGyn Episode No OBEpisode recorded.
--- OUTSIDE RECORDS SUMMARY | 2025-03-10 09:05 | XMS_ITS ---
Author Organization [facility] Address [address] [place] [address] Care Team Providers [employer] Registrar Name Role Phone Robert Argueta Primary Care Provider [phone] Results Component Value Reference Range Notes CBC With Differential/Platel et* Reviewed date:02/18/2025 04:34:10 PM Interpretation: Performing Lab:[facility] [place], [address] [facility], [place], Phone - [phone], Director - Laney Notes/Report: WBC 8.9 3.4-10.8 x10E3/uL RBC 4.70 [...] Female Encounters Encounter Location Date Provider Diagnosis [address] [address] 02/13/2025 Robert Argueta Leukocytosis D72.829 and Neutrophilia D72.9 Assessments Encounter Date Diagnosis (ICD Code) Assessment Notes Treatment Notes Treatment Clinical Notes Section Notes 02/13/2025 Leukocytosis (ICD-10 - D72.829) 02/13/2025 Neutrophilia (ICD-10 - D72.9) Plan Of Treatment No Information Progress Notes * Manjula LEE NDOB:[birth year] (25 yo F)Acc No.[id number]:02/13/2025 UNLOCKED PROGRESS NOTE Patient: Manjula SINGLETARY Provider: Kaylee Argueta APN :2000 A ge:24 Y S ex:Female Date:02/13/2025 Address:[address] [place], [place] [id number] 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 Labs. * Medical History: Objective: * Vitals: Assessment: * Assessment: 1. L eukocytosis - D72.829 2 . N eutrophilia - D72.9 Plan: * Treatment: 2. N eutrophilia L AB: CBC With Differential/Platelet* (Collection Date & Time - 02/13/2025) * * Electronic signature of Robert Argueta on 03/10/2025 at 09:04 AM CDT Sign off status: Pending * Provider: Kaylee Argueta APN Date: 0 02/13/2025 Generated for Cintia osman/Migdalia/eTcandysmitting on: 0 03/10/2025 09:04 AM CDT
--- OUTSIDE RECORDS SUMMARY | 2025-03-10 09:05 | XMS_ITS | Data Portability ---
Author Organization [facility] [place] Address [address] [place] [address] Assessment Encounter Date Assessment Date Assessment LastModified by Organization Details LastModified Time 04/21/2023 04/21/2023 Annual gynecological exam performed. Patient will come back in a year unless there are new symptoms. Suggest Calcium with Vitamin D if not eating in diet. Patient advised to get annual flu shot. Recommend yearly physicals and preform monthly breast exams. Genetic testing is available for patients with family history of cancer. Engage in safe sexual practices, use condoms. Encouraged to have daily exercise. Avoid tobacco and illicit drugs, moderation of alcohol. If BMI greater than 25 dietary consult advised. If you have any questions please call or email. [email or web address] Not available 04/21/2023 16:54:26 09/24/2024 09/24/2024 Annual gynecological exam performed. Patient will come back in a year unless there are new symptoms. [email or web address] Not available 09/24/2024 14:30:00 Plan of Treatment Reminders Order Date Submit Date Provider Last Modified By Organization Details Last Modified Time Details Appointments None recorded. Lab None recorded. Referral None recorded. Procedures None recorded. Surgeries None recorded. Imaging US, transvagina l 2023 024 [email or web address] [place], [address], [place], [address], 21:31:43 Medication Orders fluoxetine 20 mg tablet 2023 024 KIT [facility]acy #[id number], [address], [place], [address], 4 15:02:12 fluoxetine 20 mg capsule 2022 023 [email or web address] 1 [id number], [address], [place], [address], 5 11:37:45 hydroxyzine HCl 25 mg tablet 2022 023 [email or web address] [facility]/Pharmacy #[id number], [address], [place], [address], 4 14:33:08 Patient TargetsNo targets recorded. Patient InstructionsNo instructions recorded. Reason for Referral None Reported. Results Created Date Observation Date Name Description Value Unit Range Abnormal Flag Note LastModifiedBy Organization Detail LastModifiedTime 04/21/20 23 04/21/2023 IMAGE GUIDE D PAP, REFLE X HPV IF ASCUS ONLY image guided Pap, reflex HPV ASCUS only SEE RESULT S BELOW CASE REPOR T: Cytol ogy Gynec ologi brian Repor t Case: [id number] Autho khris vo Provi lesvia: Aniyah Ruiz NP Colle cted: 04/21 1621 Order ing Locat ion: [place] [facility] Recei cristy: 04/24 0758 First Scree n: Anne Cleary, CT Speci men: Scree chilo Pap - Image d, Cervi x STATE MENT OF ADEQU ACY: Satis facto ry for evalu ation Trans forma tion zone compo nent prese nt FINAL DIAGN OSIS: Negat demarcus for Intra epith elial Lesjayesh matamoros or Janet erickson (NIL) . Elect mukesh trujillo urszula d by Anne Cleary, CT on 2022 at 5:21 PM ----- ----- ----- ----- ----- ----- ----- ----- ----- ----- ----- ----- ----- ----- ----- ----- ----- ---- COMME NT: This speci men was revie wed by a Cytot echno logis t and/o r Patho logis t (as indic ated in this repor t) after evalu ation using the Thinp rep Imagi ng Syste m. CLINI BRIAN INFOR MATIO N: Menst rual Statu s: LMP (if appli cable ): Clini brian Histo ry/Pr eviou s Pap: Type of Neopl fernie (if appli cable ): Signi fican t Clini brian Findi ngs: Other Histo ry: Hormo aayush (if appli cable ): PAP EDUCA MARLYN L NOTE: The Pap Test is a scree chilo test with an inher ent false negat demarcus rate. Liqui d-bas ed sampl ing may decre ase, but will not elimi david, false negat demarcus resul ts. A negat demarcus resul t does not precl ude the prese nce and/o r devel opmen t of disea se, since the prese nce of abnor mal cells in the sampl e depen ds on the locat ion of the lesio n and sampl ing techn ique. [place] nued regul ar scree chilo is the best metho d of cance r preve ntion . If repor aleksandra cytol ogic findi ng do not corre late with physi brian and/o r histo rical findi ngs, furth er inves tigat ion is recom jennifer d, as clini eloina renteria nted. Not Available [facility] (Lab) [address], [place], [address], 04/24/2023 18:25:13 04/21/20 23 04/21/2023 TRICH OMONA S VAGIN MARIO (RRNA ) trichomonas vaginalis ribosomal RNA (rrna) Negati ve negati ve Not Available [facility] (Lab) [address], [place], [address], 04/24/2023 18:25:13 04/21/20 23 04/21/2023 CT/GC (JOSE ALBERTO) , THINP REP VIAL chlamydia trachomatis, PCR Negati ve negati ve Not Available [facility] (Lab) [address], [place], [address], 04/24/2023 18:25:14 04/21/20 23 04/21/2023 CT/GC (JOSE ALBERTO) , THINP REP VIAL neisseria gonorrhoeae, PCR Negati ve negati ve Not Available [facility] (Lab) [address], [place], [address], 04/24/2023 18:25:14 09/24/20 24 09/24/2024 WOMEN 'S HEALT H SWAB PLUS, KEYANNA bacterial vaginosis (bv), tma Negati ve negati ve Not Available [facility] (Lab) [address], [place], [address], 09/25/2024 13:52:03 09/24/20 24 09/24/2024 WOMEN 'S HEALT H SWAB PLUS, KEYANNA soraida species, tma Negati ve negati ve Not Available [facility] (Lab) [address], [place], [address], 09/25/2024 13:52:03 09/24/20 24 09/24/2024 WOMEN 'S HEALT H SWAB PLUS, KEYANNA soraida glabrata, tma Negati ve negati ve Not Available [facility] (Lab) [address], [place], [address], 09/25/2024 13:52:03 09/24/20 24 09/24/2024 WOMEN 'S HEALT H SWAB PLUS, KEYANNA trichomonas vaginalis, tma Negati ve negati ve Not Available [facility] (Lab) [address], [place], [address], 09/25/2024 13:52:03 09/24/20 24 09/24/2024 WOMEN 'S HEALT H SWAB PLUS, KEYANNA chlamydia trachomatis, PCR Negati ve negati ve Not Available [facility] (Lab) [address], [place], [address], 09/25/2024 13:52:03 09/24/20 24 09/24/2024 WOMEN 'S HEALT H SWAB PLUS, KEYANNA neisseria gonorrhoeae, PCR Negati ve negati ve Bacte rial vagin osis detec ts the follo wing bacte jorge a assoc iated with bacte rial vagin osis (BV): Lacto bacil issa (L. gasse ri, L. crisp atus and L. jense norman), Gardn erell a vagin mario, and Atopo bium vagin ae. A singl e quali tativ e resul t is repor aleksandra base on instr ument softw are to deter mine BV posit demarcus or negat demarcus statu s. The Bisi da speci es group tests for C. albic ans, C. tropi calis , C. parap sheba is, C. dubli niens is. Testi ng is perfo rmed using the Trans cript ion Media aleksandra Ampli ficat ion metho d. Tests for Bisi da glabr alec, Trich omona s vagin mario, Chlam ydia trach omati s, and Neiss eria gonor rhoea e are also inclu ded in this panel . Not Available [facility] (Lab) [address], [place], [address], 09/25/2024 13:52:03 03/23/20 23 03/23/2023 US, pelvi s No observ ation record ed. [facility] [address], [place], [address], 03/23/2023 18:09:40 03/23/20 23 03/23/2023 US, trans vagin al No observ ation record ed. [facility] [address], [place], [address], 09/25/2024 14:56:42 03/23/20 23 03/23/2023 US, pelvi s No observ ation record ed. SVEN [address] [facility], [place], [address], 09/25/2024 14:56:43 04/16/20 24 04/16/2024 US, trans vagin al No observ ation record ed. [email or web address] [place] [address], [place], [address], 04/16/2024 18:08:44 04/16/20 24 04/16/2024 US, trans vagin al No observ ation record ed. [email or web address] [address], [place], [address], 04/16/2024 22:44:33 Result Notes None recorded. Problems Name Problem SNOMED Code Status Onset Date Resolution Date Notes Provider Name and Address Organization Details Recorded Time Polycyst ic ovary syndrome 585858650 Active 2021 Chiquita Mcneil MD [address], [place], [address], [facility] 2 16:35:16 Kimberlyjuan a user 667489331 Active 2021 Chiquita Mcneil MD [address], [place], [address], [facility] 2 16:35:29 Pregnanc y 32598296 Completed 202105/27/2022 Viji olson [facility] 2 15:28:57 History of SARS-CoV -2 [id number] Completed at 5-6w. on ASA. no growth needed since no placenta at time of infectio n. Viji olson [facility] 2 15:28:50 Problem Notes None recorded. Procedures Surgical History Date Name Laterality Status Provider Name and Address Organization Details Recorded Time 04/21/20 Date of Last Pap Smear completed Alina Lake [facility] 04/21/2023 16:40:20 10/20/20 [facility]/2022 12:16:59 10/09/19 19 Date of Last Colonoscopy completed Alina Lake [facility] 01/04/2022 12:18:17 10/09/19 19 [facility] 01/04/2022 12:18:40 10/09/19 18 colonoscopy completed Norah Reilly [facility] 10/19/2021 16:03:12 Imaging Results None recorded. Procedure Notes None recorded. Medical Equipment None Reported. Allergies No known drug allergies Medications Name Sig Start Date Stop Date Status Note LastModified by Organization Details LastModified Time cyclobenzap rine 10 mg tablet TAKE 1 TABLET BY MOUTH THREE TIMES DAILY NEEDED FOR MUSCLE SPASM 06/01 completed Not Available Not Available Not Available prednisone 10 mg tablet 10/19 completed Not Available Not Available Not Available famotidine 40 mg tablet 04/10 completed Not Available Not Available Not Available prednisone 20 mg tablet 06/01 completed Not Available Not Available Not Available triamcinolo ne acetonide 0.1 % topical cream APPLY THIN COAT TO AFFECTED AREA TWICE A DAY 09/24 completed Not Available Not Available Not Available amoxicillin 500 mg tablet TAKE 1 TABLET BY MOUTH TWICE DAILY 10/19 completed Not Available Not Available Not Available propranolol 10 mg tablet TAKE 1 TABLET BY MOUTH EVERY 12 HOURS FOR 30 DAYS active Not Available Not Available No t Available cyanocobala min (vit B-12) 500 mcg tablet TAKE 1 TABLET BY MOUTH EVERY DAY 04/21 completed Not Available Not Available Not Available fluoxetine 20 mg tablet TAKE 1 TABLET BY MOUTH EVERY DAY active Not Available Not Available No t Available promethazin e 25 mg tablet TAKE 1 TABLET BY MOUTH EVERY 6 HOURS NEEDED 11/09 completed Not Available Not Available Not Available fluoxetine 10 mg capsule TAKE 1 CAPSULE BY MOUTH EVERY DAY 01/18 completed Not Available Not Available Not Available buspirone 7.5 mg tablet TAKE 1 TABLET BY MOUTH TWICE A DAY 03/21 completed Not Available Not Available Not Available omeprazole 20 mg capsule,del ayed release 04/10 completed Not Available Not Available Not Available hydroxyzine HCl 25 mg tablet 1 tab 3 x day prn anxiety 09/24 completed Not Available Not Available Not Available ergocalcife rol (vitamin D2) 1,250 mcg (50,000 unit) capsule TAKE 1 CAPSULE BY MOUTH ONE TIME PER WEEK active Not Available Not Available No t Available ibuprofen 600 mg tablet TAKE 1 TABLET BY MOUTH EVERY 6 HOURS NEEDED FOR CRAMPING 06/01 completed Not Available Not Available Not Available hydroxyzine HCl 10 mg tablet TAKE 1 TABLET BY MOUTH UP TO 3 TIMES DAILY NEEDED FOR ANXIETY active Not Available Not Available No t Available fluoxetine 20 mg capsule TAKE 1 CAPSULE (20MG) BY MOUTH ONCE DAILY FOR 14 DAYS, THEN INCREASE TO 2 CAPS (40MG) ONCE DAILY active Not Available Not Available No t Available amoxicillin 875 mg-potassiu m clavulanate 125 mg tablet TAKE 1 TABLET BY MOUTH TWICE A DAY 04/10 completed Not Available Not Available Not Available 06/01 completed Not Available Not Available Not Available Baby Aspirin 06/01 completed Not Available Not Available Not Available ID NOW COVID-19 Test Kit DIRECTED 10/19 completed Not Available Not Available Not Available COVID-19 test specimen collection TEST DIRECTED TODAY 10/19 completed Not Available Not Available Not Available Vitals Date Recorded Body height Body mass index (BMI) Body weight Systolic blood pressure Diastolic blood pressure Provider Name and Address Organization Details Last Updated DateTime 04/10/2024 160.02 cm 31.7 kg/m2 17246.75 g 131 mm[Hg] 77 mm[Hg] Jelena Ruiz [facility] 4 12:16:57 Date Recorded Body height Body mass index (BMI) Body weight Systolic blood pressure Diastolic blood pressure Provider Name and Address Organization Details Last Updated DateTime 04/21/2023 160.02 cm 34.5 kg/m2 77762.51 g 126 mm[Hg] 84 mm[Hg] Alina Lake [facility] 3 16:40:07 Date Recorded Body height Body mass index (BMI) Body weight Systolic blood pressure Diastolic blood pressure Provider Name and Address Organization Details Last Updated DateTime 05/01/2024 160.02 cm 32.5 kg/m2 72262.56 g 105 mm[Hg] 69 mm[Hg] Jelena Lenzernst [facility] 4 16:40:29 Date Recorded Body height Body mass index (BMI) Body weight Systolic blood pressure Diastolic blood pressure Provider Name and Address Organization Details Last Updated DateTime 09/24/2024 160.02 cm 32.4 kg/m2 67170.4 g 117 mm[Hg] 74 mm[Hg] Sharonda Ron [facility] 4 14:32:46 Social History Question Answer Notes LastModified by Organizat ion Details LastModified Time Tobacco Smoking Status Never Smoker Alina olson, [facility] 01/04/2022 12:17:00 Do You Have An Advance Directive? No [email or web address] Information n ot available 01/04/2022 Are You Blind Or Do You Have Difficulty Seeing? No [email or web address] Information n ot available 01/04/2022 What Is Your Level Of Caffeine Consumption? None [email or web address] Information not available 01/04/2022 How Much Tobacco Do You Chew? None [email or web address] Information not available 01/04/2022 In The 14 Days Before Symptom Onset, Have You Had Close Contact With A Laboratory-confirm ed COVID-19 While That Case Was Ill? No [email or web address] Information n ot available 01/04/2022 In The 14 Days Before Symptom Onset, Have You Had Close Contact With A Person Who Is Under Investigation For COVID-19 While That Person Was Ill? No Information not available 01/04/2022 Have You Been To An Area Known To Be High Risk For COVID-19? No [email or web address] Information not available 01/04/2022 Are You Deaf Or Do You Have Serious Difficulty Hearing? No [email or web address] Information not available 01/04/2022 What Type Of Diet Are You Following? REGULAR [email or web address] Information n ot available 01/04/2022 What Is The Highest Grade Or Level Of School You Have Completed Or The Highest Degree You Have Received? [id number] [email or web address] Information not available 01/04/2022 Are There Any Guns Present In Your Home? No [email or web address] Information not available 01/04/2022 Do You Use Protection During Sex? No [email or web address] Information not available 01/04/2022 Do You Use Your Seat Belt Or Car Seat Routinely? Yes [email or web address] Information not available 01/04/2022 Do You Have Smoke And Carbon Monoxide Detectors In Your Home? Yes [email or web address] Information not available 01/04/2022 How Much Tobacco Do You Smoke? No [email or web address] Information not available 01/04/2022 Do You Use Sunscreen Routinely? Yes [email or web address] Information not available 01/04/2022 Has Tobacco Cessation Counseling Been Provided? No [email or web address] Information not available 01/04/2022 Have You Used IV Drugs? No [email or web address] Information not available 01/04/2022 Do You Have Difficulty Walking Or Climbing Stairs? No [email or web address] Information not available 01/04/2022 Sex: Unknown Functional Status Question Answer Note LastModified by Organizat ion Details LastModified Time Do you use any illicit or recreational drugs? Yes [email or web address] Information not available 01/04/2022 Do you or have you ever used any other forms of tobacco or nicotine? No [email or web address] Information not available 01/04/2022 What is your level of alcohol consumption? None [email or web address] Information not available 10/19/2021 Are you able to walk? YESWOREST [email or web address] Information not available 01/04/2022 Are you able to care for yourself? 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 No [email or web address] Information not available 01/04/2022 What is your exercise level? Occasional [email or web address] Information not available 01/04/2022 Mental Status Question Answer Note LastModified by Organization D etails LastModified Time Do you feel stressed (tense, restless, nervous, or anxious, or unable to sleep at night)? [id number] [email or web address] Information not available 01/04/2022 Family History Relationship Description Onset Age of this Age Resolved Age Notes LastModified by Organization Details LastModified Time Unspecified Relation Family history unknown [email or web address] Not available 01/04 12:16:59 Medical History Condition Response Allergies (Food, seasonal, environmental ) N Other N Blood Transfusion N Drug/Latex Allergies/Reactions N Breast Cancer N Dermatologic Disorders N Lung Disease Y Defects or Inherited Disease N Breast Problem N Gestational Diabetes N Hematologic disorders N Anesthesia Complications N History of STI N Deep Vein Thrombosis N Polycystic ovary syndrome Y Anxiety Disorder N Autoimmune disease N Arthritis N Infertility N Polyps N Acid Reflux (GERD) N History of abnormal pap N Cancer N Stroke N Varicosities N Neurologic/Epilepsy N Endometriosis N High Cholesterol N Headaches N Fibromyalgia N Kidney Disease N Heart Problems N Kidney or Bladder Problems N Thyroid Problems N GI Problems N Eating Disorder N Anemia N Art (IVF or FET) N Psychiatric Illness N Ovarian Cancer N Diabetes N Pulmonary (TB, Asthma) N Hepatitis/Liver Disease N No Past Medical History N Eczema N Urinary Tract Infection N Abuse/Domestic Violence N Asthma N Trauma/Violence N Depression/ depression N Heart Disease N Pre-Eclampsia N Hypertension N Osteoporosis N Thrombophilias N Gynecological History Statement/Question Response Date of Last Mammogram Date of LMP 09/03/2024 On BCP's at Conception? N N Was last menstrual period normal Y STIs/STDs N HPV Vaccine N Duration of Flow (days) 5 Current Control Method None Are cycles usually normal Y Date of Last Colonoscopy 10/09/2018 Most Recent Bone Density Sexually Active? Y Menses Monthly Y Age of first menstrual cycle 13 Date of Last Pap Smear 04/21/2023 Sexual Problems? N LMP Approximate 07/28/2019 N Obstetrics History GPAL:G 2 P 1 0 1 1 Type Value Full Term 1 Spontaneous 1 Living 1 Total 2 Past Encounters Encounter ID Performer Location Encounter Start Date Encounter Closed Date Diagnosis/Indication Diagnosis SNOMED-CT Code Diagnosis ICD10 Code Diagnosis Note [id number] Chiquita Mcneil MD [place] [address] [address] 10/19/2021 15:51:07 10/19/2021 17:58:07 Urine test positive 361948475 Z32.01 Polycystic ovary syndrome 735253015 E28.2 Body mass index 30+ - obesity 167293312 Z68.37 Marijuana user 839273519 F12.90 Nausea and vomiting 1693 1999 R11.2 [id number] Chiquita Mcneil MD [place] [address] [address] 10/19/2021 16:19:05 10/19/2021 16:56:09 [id number] Chiquita Mcneil MD [place] [address] [address] 11/09/2021 15:26:18 11/09/2021 16:08:49 screening 590231718 Z36.82 [id number] Chiquita Mcneil MD [place] [address],[place] [address] 11/09/2021 15:26:37 11/10/2021 11:28:28 Routine care 806923316 Z34.91 History of SARS-CoV-2 29 43559791 28543940 Z86.16 [id number] Sheryl Calixto [facility] [address],[place] [address] 12/06/2021 17:36:19 12/06/2021 18:04:26 Routine care 047395538 Z34.92 [id number] Sheryl Calixto [facility] [address],[place] [address] 01/04/2022 11:52:18 01/13/2022 16:35:22 Routine care 656224686 Z34.92 [id number] Albert Jason MD [place] [address],[place] [address] 01/04/2022 11:53:03 01/04/2022 17:50:01 screening for malformation 255674301 Z36.3 [id number] Aniyah Arriola [facility] [address],[place] [address] 02/02/2022 14:59:51 02/02/2022 16:41:21 Routine care 195532326 Z34.92 [id number] Albert Jason MD [place] [address],[place] [address] 02/02/2022 14:59:36 02/02/2022 15:56:15 screening 414725006 Z36.2 [id number] Albert Jason MD [place] [address] [address] 03/02/2022 11:25:38 03/02/2022 12:15:17 Pre-existing maternal disease complicating 5360277400 6106 O99.891 U07.1 Z86.16 Z3A.28 [id number] Aniyah Arriola [facility] [address],[place] [address] 03/02/2022 11:26:04 03/02/2022 12:37:51 Routine care 532896565 Z34.92 [id number] Sheryl Calixto [facility] [address],[place] [address] 03/15/2022 11:56:21 03/16/2022 17:37:47 [id number] Chiquita Mcneil MD [place] [address],[place] [address] 03/30/2022 15:58:20 04/01/2022 11:45:55 Routine care 940472448 Z34.91 [id number] Chiquita Mcneil MD [place] [address],[place] [address] 03/30/2022 15:58:41 03/30/2022 16:41:31 Maternal obesity complicating , childbirth and the puerperium, antepartum 8028709207 07 O99.213 O99.891 U07.1 Z86.16 Z3A.32 [id number] Aniyah Arriola [facility] [address],[place] [address] 04/12/2022 09:38:02 04/12/2022 12:38:48 Routine care 784681735 Z34.92 [id number] Albert Jason MD [place] [address],[place] [address] 04/14/2022 16:59:00 04/14/2022 17:36:11 [id number] Chiquita Mcneil MD [place] [address],[place] [address] 04/27/2022 13:49:53 04/27/2022 14:49:36 COVID-19 953250859 U07.1 [id number] Aniyah Arriola [facility] [address],[place] [address] 04/27/2022 14:23:14 04/27/2022 15:00:06 Routine care 318930141 Z34.92 [id number] Aniyah Arriola [facility] [address],[place] [address] 06/01/2022 09:25:30 06/01/2022 09:47:03 care 210106654 Z39.0 [id number] Aniyah Arriola [facility] [address],[place] [address] 07/27/2022 16:42:08 07/27/2022 17:18:53 Anxiety 69211864 F41.9 reviewed options, list of counselors given, reviewed se risks of benefits of daily meds, vs hydroxyzin e, pt would like to start out with that, f/u 4 weeks or sooner if neededto ED if any suicidal ideations [id number] Aniyah Arriola CNM [place] [address],[place] [address] 08/26/2022 16:00:29 08/26/2022 16:47:03 Mixed anxiety and depressive disorder 862815491 F41.8 [id number] Aniyah Arriola CNM [place] [address],[place] [address] 10/26/2022 16:10:21 10/26/2022 17:36:16 Mixed anxiety and depressive disorder 623621189 F41.8 may have refill of hydroxyzin e if needed Palpitations 14862203 R0 0.2 order holter monitor [id number] Aniyah Arriola CNM [place] [address],[place] [address] 01/18/2023 16:46:17 01/18/2023 18:19:10 Anxiety 35050132 F41.9 reviewed options, list of counselors given, reviewed se risks of benefits of buspar, will let cardiologi st know, any suicidal thoughts to ED f/u wwe and med check as scheduled. call with any rec from cardiology [id number] [facility] [address],[facility] [place] [address] 02/10/2023 15:23:27 02/10/2023 16:14:37 Anxiety 65598891 F41.9 reviewed options, list of counselors given, reviewed se risks of benefits of Hydroxyzin e, mental and physical health both important, will refer to cardiology for 2nd opinion, any suicidal thoughts to ED f/u wwe and med check as scheduled. [id number] Dayana Ashby [facility] [address],[place] [address] 03/21/2023 09:54:56 03/21/2023 10:51:42 Pain in pelvis 16775534 R10.2 Today we agreed to update an pelvic US and will discuss next steps once results recieved.U pdated std screen sent Patient is to contact office or go to nearest ED/Urgent care if fever >/= 100.1, pain, excessive bleeding, unusual drainage or swelling in area of concern; or experienci ng worsening sx's or new onset of concerning sx's. Understand ing verbalized . All questions answered to patient satisfacti on. Time spent in visit is a total of 20mins with at least 50% of visit consisting of counseling and review of plan of care. [id number] Albert Jason MD [place] [address],[facility] [place] [address] 03/23/2023 17:31:35 03/23/2023 17:54:03 Pain in pelvis [id number] R10.2 [id number] Aniyah Arriola CNM [place] [address],[facility] [place] [address] 04/21/2023 16:26:21 04/21/2023 16:55:41 Gynecologic examination [id number] Z01.419 Anxiety [id number] F41.9 doing well f/u 6 mo [id number] LUIS WEIR MD [place] [address],[place] [address] 04/10/2024 12:03:05 04/10/2024 14:23:28 Pain in pelvis [id number] R10.2 - similar episode to 03/2023, had hemorrhagi c cyst at that time- right sided pelvic pain for 4 days prior to period, now improved but still present- s/p miscarriag e 02/2024- will order pelvic US to r/o ovarian cyst [id number] Albert Jason MD [place] [address],[place] [address] 04/16/2024 17:30:56 04/16/2024 18:05:13 Cyst of right ovary [id number] N83.291 [id number] LUIS WEIR MD [place] [address],[place] [address] 05/01/2024 16:27:41 05/02/2024 09:24:50 Pain in pelvis [id number] R10.2 - similar episode to 03/2023, had hemorrhagi c cyst at that time- pelvic US overall unremarkab le, R hemorrhagi c cyst has resolved- pain likely due to ovulation pain- discussed suppressio n with combined hormonal contracept ion vs expectant management - patient desires expectant management at this time- rtc for WWE [id number] LUIS WEIR MD [place] [address],[facility] [place] [address] 09/24/2024 14:18:19 09/24/2024 15:02:31 Anxiety [id number] F41.9 - patient rep Mixed anxi ety and depressive disorder [id number] F41.8 - patient reports worsening anxiety and depressive symptoms since stopping fluoxetine (lost PCP access)- will restart fluoxetine - no SI/HI- encouraged patient to find new PCP to continue management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
--- OUTSIDE RECORDS SUMMARY | 2025-03-10 09:05 | XMS_ITS | Encounter Summary ---
Author Organization [facility] Address [address] [place] [address] Care Team Providers Care General Forecaster Name Role Phone Eunice Garcia MD Primary Care Provider [phone] Encounter Details Date Type Department Care Team (Late st Contact Info) Description 11/16/2018 Telephone [facility] - [address] [address] Alicia Alex MD [address] [place] [id number] Social History Tobacco Use Types Packs/Day Years Used Date Smoking Tobacco: Passive Smo ke Exposure - Never Smoker Smokeless Tobacco: Never Comments:Parents smoke outsi de Alcohol Use Standard Drinks/Week Comments No 0 (1 standard drink = 0.6 oz pur e alcohol) Comments No Sex and Gender Information Value Date Recorded Sex Assigned at Not on file Legal Sex Female 9:56 AM EDUCATION ADVISER Gender Identity Not on file Sexual Orientation Not on file documented as of this encounter Miscellaneous Notes * Telephone Encounter - Siobhan Bloom - 11/19/2018 11:51 AM CST Spoke with mom informed of message below ATION ADVISER * Telephone Encounter - Aga Mckeon RN - 11/19/2018 11:40 AM CST LM for mom to call office to let her know the prescription has been sent. ATION ADVISER * Telephone Encounter - Alicia Alex MD - 11/19/2018 11:31 AM EDUCATION ADVISER EKG overall normal. I sent the prescription for Elavil that we discussed. ATION ADVISER * Telephone Encounter - Aga Mckeon RN - 11/19/2018 10:29 AM CST Received EKG. Placed in Dr. Alex's mailbox. ATION ADVISER * Telephone Encounter - Tammy Connell RN - 11/19/2018 8:45 AM EDUCATION ADVISER Spoke with Ricky Fair had EKG done @ [facility] in [place]. [place] will fax results to our office to be reviewed. ATION ADVISER * Telephone Encounter - Siobhan Bloom - 11/16/2018 3:14 PM CST Patient LM wants to know if our office received EKG results. ATION ADVISER documented in this encounter Plan of Treatment Not on file documented as of this encounter Goals Goal Patient Goal Type Associated Problems Recent Progress Patient-Stated? Author Exercise 3X per week (30 min per time) Exercise On track( 018 9:23 AM EDUCATION ADVISER) No Shannan Ochoa RN Use safety retraint in car Lifestyle On track( 020 11:17 AM CDT) No Shannan Ochoa RN documented as of this encounter Visit Diagnoses Not on filedocumented in this encounter Care Teams General Forecaster Relationship Specialty Start Date End Date Eunice Garcia MD PCP - General 01/05/12 documented as of this encounter
--- OUTSIDE RECORDS SUMMARY | 2025-03-10 09:05 | XMS_ITS | Patient Health Record ---
Author Organization Formerly [facility] Address [address] [place] [address] Care Team Providers Care Ceo And Founder Name Role Phone Puja Arguetay Primary Care Provider [phone] Allergies No Known Allergies Results Component Value Reference Range Notes CBC With Differential/Platel et* Reviewed date:02/18/2025 04:34:10 PM Interpretation: Performing Lab:[facility] [place], [address] [facility], [place], Phone - [phone], Director - [place] Notes/Report: WBC 8.9 3.4-10.8 [...] as the collection date if not supplied. Hemoglobin A1c* Reviewed date:01/14/2025 11:09:22 AM Interpretation: Performing Lab:[address], Phone - [phone], [facility]: Hemoglobin A1c 5.0 4.8-5.6 % . Prediabetes: 5.7 - 6.4 Diabetes: >6.4 Glycemic control for adults with diabetes: <7.0 Vitamin B12* Reviewed date:01/14/2025 11:08:43 AM Interpretation: Performing Lab:[address], Phone - [phone], Director - Psychiatric Notes/Report: Vitamin B12 [phone] pg/mL Nadege Ellington CMP14 Default A hand-written panel/profile was received from your office. In accordance with the [facility] Ambiguous Test Code Policy dated April 2003, we have completed your order by using the closest currently or formerly recognized AMA panel. We have assigned Comprehensive Metabolic Panel (14), Test Code #[id number] to this request. If this is not the testing you wished to receive on this specimen, please contact the [facility] Client Inquiry/Technical Services Department to clarify the test order. We appreciate your business. Folate (Folic Acid), Serum* Reviewed date:01/14/2025 11:09:29 AM Interpretation: Performing Lab:[address], Phone - [phone], [facility]: Folate (Folic Acid), Serum 4.8 >3.0 ng/mL A serum folate concentration of less than 3.1 ng/mL is considered to represent clinical deficiency. Vitamin D, 25-Hydroxy* Reviewed date:01/14/2025 11:08:33 AM Interpretation: Performing Lab:[address], Phone - [phone], [facility]Report: Vitamin D, 25-Hydroxy 11.3 30.0-100.0 ng/mL Vitamin D deficiency has been defined by the [place] of [employer] and an Endocrine Society practice guideline as a level of serum 25-OH vitamin D less than 20 ng/mL (1,2). The Endocrine Society went on to further define vitamin D insufficiency as a level between 21 and 29 ng/mL (2). 1. IOM ([place] of [employer]). 2010. Dietary reference intakes for calcium and D. [place]: The National Academies Press. 2. Alexander MF, Madina MISHRA, Ines YIN, et al. Evaluation, treatment, and prevention of vitamin D deficiency: an Endocrine Society clinical practice guideline. JCEM. 2010; 96(7):1911-30. TSH+Free T4* Reviewed date:01/14/2025 11:08:51 AM Interpretation: Performing Lab:[facility] [place] [facility], Phone - [phone], [facility]: TSH 0.514 0.450-4.500 uIU/mL T4,Free(Direct) 1.16 0.82-1.77 ng/dL Lipid Panel* Reviewed date:01/14/2025 11:09:13 AM Interpretation: Performing Lab:[facility] [place] [facility], [place], Phone - [phone], Director - PhDSivakumar Notes/Report: Cholesterol, Total 189 100-199 mg/dL Triglycerides 128 0-149 mg/dL HDL Cholesterol 41 >39 mg/dL VLDL Cholesterol Claude 23 5-40 mg/dL LDL Chol Calc (NIH) 125 0-99 mg/dL CMP 14 Comprehensive Metabol ic Panel* Reviewed date:01/14/2025 11:09:46 AM Interpretation: Performing Lab:[facility] [place], Rivalroo Kahn [facility], [place], Phone - [phone], Director - [facility] Notes/Report: Glucose 75 70-99 mg/dL BUN 10 [...] 0-40 IU/L ALT (SGPT) 15 0-32 IU/L Nadege Ellington LP Default Reviewed date:01/14/2025 11:07:06 AM Interpretation: Performing Lab:[facility], [address] [place] [address], Phone - [phone], Director - [place] Notes/Report: Nadege Ellington LP Default A hand-written panel/profile was received from your office. In [facility] dated April 2003, we have completed your order by using the closest currently or formerly recognized AMA panel. We have assigned Lipid Panel, Test Code #[id number] to this request. If this is not the testing you wished to receive on this specimen, please contact the [facility] Client Inquiry/Technical Services Department to clarify the test order. We appreciate your business. CBC/Diff Ambiguous Default Reviewed date:01/14/2025 11:08:20 AM Interpretation: Performing [facility], [address] [facility], Phone - [phone], Director - [place] Notes/Report: WBC 11.7 3.4-10.8 x10E3/uL RBC 4.56 3.77-5.28 x10E6/uL Hemoglobin 13.9 11.1-15.9 g/dL Hematocrit 42.0 34.0-46.6 % MCV 92 79-97 fL MCH 30.5 26.6-33.0 pg MCHC 33.1 31.5-35.7 g/dL RDW 13.9 11.7-15.4 % Platelets 348 150-450 x10E3/uL Neutrophils 64 Not Estab. % Lymphs 29 Not Estab. % Monocytes 6 Not Estab. % Eos 1 Not Estab. % Basos 0 Not Estab. % Neutrophils (Absolute) 7.5 1.4-7.0 x10E3/uL Lymphs (Absolute) 3.4 0.7-3.1 x10E3/uL Monocytes(Absolute) 0.8 0.1-0.9 x10E3/uL Eos (Absolute) 0.1 0.0-0.4 x10E3/uL Baso (Absolute) 0.0 0.0-0.2 x10E3/uL Immature Granulocytes 0 Not Estab. % Immature Grans (Abs) 0.0 0.0-0.1 x10E3/uL Hematology Comments: A hand-written panel/profile was received from your office. In accordance with the [facility]ig[facility] Policy dated April 2003, we have assigned CBC with Differential/Platelet, Test Code #[id number] to this request. If this is not the testing you wished to receive on this specimen, please [facility] to clarify the test order. We appreciate your business. Reason For Referral No Information Medications Medication SIG (Take, Route, Frequency, Duration) Notes Start Date End Date Status Ergocalciferol 1.25 MG (27322 UT) 1 capsule Orally once weekly for 30 days 01/15/2025 Active hydrOXYzine HCl 10 MG 1 tablet Orally up to 3 times daily for 30 days As needed for anxiety Active hydrOXYzine HCl Acti ve Propranolol HCl ER 60 MG 1 capsule Orall y Once a day for 30 days 02/07/2025 Active FLUoxetine HCl 40 MG 1 capsule once rebeca y Orally Active hydrOXYzine HCl 50 MG 0.5-2 tablets once nightly at bedtime as needed for sleep Orally Once a day for 30 days 02/07/2025 Active Social History Tobacco Use: Social History Observation Description Date Details (start date - stop date) Former Smoker NA - NA Sex Assigned At : Social History Observation Description Sex Assigned At Female Tobacco Control (Standard) Question Answer Notes Tobacco use: Former smoker How long has it been since you last smoked? 1-5 years Problems Problem Type SNOMED Code ICD Code Onset Dates Problem Status W/U Status Risk Notes Problem Vitamin D deficiency (60558361) Vitamin D deficiency (E55.9) Active confirmed Problem Generalized anxiety disorder (72513762) MARY (generalized anxiety disorder) (F41.1) Active confirmed Problem Inattention (92755287) Inattention (R41.840) Active confirmed Problem Overweight (396187882) Over weight (E66.3) Active confirmed Problem Major depressive disorder (185717180) MDD (major depressive disorder) (F32.9) Active confirmed Problem Leukocytosis (581544945) Leukocytosis (D72.829) Active confirmed Problem Neutrophilia (868770876) Neutrophilia (D72.9) Active confirmed Vital Signs Heart Rate 75 /min 02/07/2025 Oximetry 98 % 02/07/2025 Blood pressure diastolic 74 mm Hg 02/07/2025 Height 63 in 02/07/2025 Blood pressure systolic 114 mm Hg 02/07/2025 Weight 187.4 lbs 02/07/2025 BMI 33.19 kg/m2 02/07/2025 Encounters Encounter Location Date Provider Diagnosis [address] [address] 01/09/2025 Robert Argueta MARY (generalized anxiety disorder) F41.1 ; MDD (major depressive disorder) F32.9 ; Inattention R41.840 ; Over weight E66.3 ; Screening for thyroid disorder Z13.29 ; Screening for hyperlipidemia Z13.220 and Screening for diabetes mellitus Z13.[address] [address] 02/13/2025 Robert Argueta Leukocytosis D72.829 and Neutrophilia D72.[address] [address] 01/08/2025 Robert Argueta MARY (generalized anxiety disorder) F41.1 ; MDD (major depressive disorder) F32.9 ; Inattention R41.840 ; Over weight E66.3 ; Screening for thyroid disorder Z13.29 ; Screening for hyperlipidemia Z13.220 and Screening for diabetes mellitus Z13.[address] [address] 02/07/2025 Robert Argueta MARY (generalized anxiety disorder) F41.1 ; MDD (major depressive disorder) F32.9 ; Inattention R41.840 and Over weight E66.[address] [address] 01/08/2025 Robert Argueta [facility] [place] [address] 01/14/2025 Robert Argueta Leukocytosis D72.829 ; Vitamin D deficiency E55.9 and Neutrophilia D72.9 Assessments Encounter Date Diagnosis (ICD Code) Assessment Notes Treatment Notes Treatment Clinical Notes Section Notes 01/08/2025 MARY (generalized anxiety disorder) (ICD-10 - F41.1) Duration (acute/chronic), stability (controlled/uncon trolled): Chronic, uncontrolled, patient not currently on medications, see HPI Current medications/effic acy: N/A Previous medication trials: fluoxetine, hydroxyzine, buspirone (ineffective) Current/previous therapies: Denies current use - trying to establish with therapy Examination as documented - see pertinent aspects of office visit documentation. Pertinent diagnostics: AGREEABLE TO LAB COLLECTION - PATIENT TO FOLLOW UP FOR LAB VISIT Differential diagnoses: RECOMMENDATIONS: START fluoxetine as prescribed to assist with anxiety/depressio n - educated patient/guardian on adverse effects, risks and benefits, as well as alternative treatments START propranolol as prescribed to assist with anxiety - educated patient/guardian on adverse effects, risks and benefits, as well as alternative treatments Continue/modify other medications as prescribed - educated patient/guardian on adverse effects, risks and benefits, as well as alternative treatments Consume well balanced diet, preferably low in saturated fats (solid at room temperature, such as butter, margarine, Crisco, etc) and low in sodium (<2,000mg per day). Consume plenty of fruits/vegetables , healthy grains/whole grains, unsaturated/healt hy fats (liquid at room temperature, such as olive oil, sunflower seed oil, canola, vegetable, etc.). Exercise regularly - Develop an exercise routine. 30 minutes of moderate exercise (walking at a brisk pace) 5 times per week is recommended. You should work hard enough to cause a sweat but still be able to talk with others while exercising. Exercise improves overall health - improves blood pressure and blood sugar, helps control weight, reduces stress, and improves mood. Practice stress reduction techniques, such as guided imagery, journaling, aromatherapy, acupuncture/acupr essure, deep breathing, etc. Practice healthy sleep hygiene - maintain regular routine, no caffeine after 1PM, no exercise 1-2 hours prior to bedtime, keep bedroom dark and cool, no TV or electronics while in bed. Consider melatonin as needed. Consider cognitive behavioral therapy for insomnia (CBT-I). Consider/Continue therapy. Consider/Continue substance cessation therapy as needed - contact office if desiring medication assisted therapy. Manage co-morbid conditions. Continue monitoring symptoms - report persistent or worsening/concern ing symptoms to the office or go to the ER. For mental health CRISIS, please reach out to [phone] ([place] Suicide and Crisis Lifeline), 911, go to the emergency department, or contact the [facility] Crisis Unit/Team. Follow up as scheduled in 4 weeks or sooner if necessary. Follow up with PCP and/or other specialists as advised. NEXT STEP: Consider increasing fluoxetine. Consider increasing propranolol. Consider other medication adjustments. Review labs. 01/08/2025 MDD (major depressive disorder) (ICD-10 - F32.9) See assessment and plan for MARY 02/13/2025 Leukocytosis (ICD-10 - D72.829) 02/07/2025 MDD (major depressive disorder) (ICD-10 - F32.9) See assessment and plan for MARY 01/14/2025 Vitamin D deficiency (ICD-10 - E55.9) 01/14/2025 Leukocytosis (ICD-10 - D72.829) 02/07/2025 MARY (generalized anxiety disorder) (ICD-10 - F41.1) Duration (acute/chronic), stability (controlled/uncon trolled): Chronic, somewhat improved with recent medication adjustments, still some room for improvement, see HPI Current medications/effic acy: Somewhat, room for improvement Previous medication trials: fluoxetine, hydroxyzine, buspirone (ineffective) Current/previous therapies: Denies current use - trying to establish with therapy Examination as documented - see pertinent aspects of office visit documentation. Pertinent diagnostics: AGREEABLE TO LAB COLLECTION - PATIENT TO FOLLOW UP FOR LAB VISIT Differential diagnoses: RECOMMENDATIONS: INCREASE hydroxyzine as prescribed to assist with sleep - educated patient/guardian on adverse effects, risks and benefits, as well as alternative treatments INCREASE propranolol and SWITCH to ER formulation as prescribed to assist with anxiety - educated patient/guardian on adverse effects, risks and benefits, as well as alternative treatments Continue other medications as prescribed - educated patient/guardian on adverse effects, risks and benefits, as well as alternative treatments Consume well balanced diet, preferably low in saturated fats (solid at room temperature, such as butter, margarine, Crisco, etc) and low in sodium (<2,000mg per day). Consume plenty of fruits/vegetables , healthy grains/whole grains, unsaturated/healt hy fats (liquid at room temperature, such as olive oil, sunflower seed oil, canola, vegetable, etc.). Exercise regularly - Develop an exercise routine. 30 minutes of moderate exercise (walking at a brisk pace) 5 times per week is recommended. You should work hard enough to cause a sweat but still be able to talk with others while exercising. Exercise improves overall health - improves blood pressure and blood sugar, helps control weight, reduces stress, and improves mood. Practice stress reduction techniques, such as guided imagery, journaling, aromatherapy, acupuncture/acupr essure, deep breathing, etc. Practice healthy sleep hygiene - maintain regular routine, no caffeine after 1PM, no exercise 1-2 hours prior to bedtime, keep bedroom dark and cool, no TV or electronics while in bed. Consider melatonin as needed. Consider cognitive behavioral therapy for insomnia (CBT-I). Consider/Continue therapy. Consider/Continue substance cessation therapy as needed - contact office if desiring medication assisted therapy. Manage co-morbid conditions. Continue monitoring symptoms - report persistent or worsening/concern ing symptoms to the office or go to the ER. For mental health CRISIS, please reach out to [phone] (National Suicide and Crisis Lifeline), 911, go to the emergency department, or contact the [facility] Crisis Unit/Team. Follow up as scheduled in 4 weeks or sooner if necessary. Follow up with PCP and/or other specialists as advised. NEXT STEP: Consider increasing fluoxetine. Consider increasing propranolol. Consider other medication adjustments. Review labs. 01/09/2025 MARY (generalized anxiety disorder) (ICD-10 - F41.1) 02/07/2025 Inattention (ICD-10 - R41.840) Duration (acute/chronic), stability (controlled/uncon trolled): Chronic, uncontrolled, patient not currently on medications for this, see HPI Current medications/effic acy: N/A Previous medication trials: fluoxetine, hydroxyzine, buspirone (ineffective) Current/previous therapies: Denies current use - trying to establish with therapy Examination as documented - see pertinent aspects of office visit documentation. Pertinent diagnostics: AGREEABLE TO LAB COLLECTION - PATIENT TO FOLLOW UP FOR LAB VISIT Differential diagnoses: DISCUSSION DURING PREVIOUS APPOINTMENT: Patient and provider discussed inattention. Provider explained that this could be related to uncontrolled anxiety/depressio n. Provider advised patient to treat anxiety/depressio n as advised and monitor inattention until next follow up. If no change by next appointment, will consider screening for ADHD. Patient verbalized understanding and agreement. RECOMMENDATIONS: Manage anxiety/depressio n as advised - monitor inattention until next appointment - will consider screening for ADHD if no improvement whatsoever in inattention with improvements in anxiety/depressio n Continue/modify other medications as prescribed - educated patient/guardian on adverse effects, risks and benefits, as well as alternative treatments Consume well balanced diet, preferably low in saturated fats (solid at room temperature, such as butter, margarine, Crisco, etc) and low in sodium (<2,000mg per day). Consume plenty of fruits/vegetables , healthy grains/whole grains, unsaturated/healt hy fats (liquid at room temperature, such as olive oil, sunflower seed oil, canola, vegetable, etc.). Exercise regularly - Develop an exercise routine. 30 minutes of moderate exercise (walking at a brisk pace) 5 times per week is recommended. You should work hard enough to cause a sweat but still be able to talk with others while exercising. Exercise improves overall health - improves blood pressure and blood sugar, helps control weight, reduces stress, and improves mood. Practice stress reduction techniques, such as guided imagery, journaling, aromatherapy, acupuncture/acupr essure, deep breathing, etc. Practice healthy sleep hygiene - maintain regular routine, no caffeine after 1PM, no exercise 1-2 hours prior to bedtime, keep bedroom dark and cool, no TV or electronics while in bed. Consider melatonin as needed. Consider cognitive behavioral therapy for insomnia (CBT-I). Consider/Continue therapy. Consider/Continue substance cessation therapy as needed - contact office if desiring medication assisted therapy. Manage co-morbid conditions. Continue monitoring symptoms - report persistent or worsening/concern ing symptoms to the office or go to the ER. For mental health CRISIS, please reach out to [phone] (National Suicide and Crisis Lifeline), 911, go to the emergency department, or contact the [facility] Crisis Unit/Team. Follow up as scheduled in 4 weeks or sooner if necessary. Follow up with PCP and/or other specialists as advised. NEXT STEP: Consider medication adjustments for anxiety/depressio n as needed. Consider screening for ADHD and treating accordingly. Consider other medication adjustments. Review labs. 01/14/2025 Neutrophilia (ICD-10 - D72.9) 02/13/2025 Neutrophilia (ICD-10 - D72.9) 01/08/2025 Inattention (ICD-10 - R41.840) Duration (acute/chronic), stability (controlled/uncon trolled): Chronic, uncontrolled, patient not currently on medications for this, see HPI Current medications/effic acy: N/A Previous medication trials: fluoxetine, hydroxyzine, buspirone (ineffective) Current/previous therapies: Denies current use - trying to establish with therapy Examination as documented - see pertinent aspects of office visit documentation. Pertinent diagnostics: AGREEABLE TO LAB COLLECTION - PATIENT TO FOLLOW UP FOR LAB VISIT Differential diagnoses: Patient and provider discussed inattention. Provider explained that this could be related to uncontrolled anxiety/depressio n. Provider advised patient to treat anxiety/depressio n as advised and monitor inattention until next follow up. If no change by next appointment, will consider screening for ADHD. Patient verbalized understanding and agreement. RECOMMENDATIONS: Manage anxiety/depressio n as advised - monitor inattention until next appointment - will consider screening for ADHD if no improvement whatsoever in inattention with improvements in anxiety/depressio n Continue/modify other medications as prescribed - educated patient/guardian on adverse effects, risks and benefits, as well as alternative treatments Consume well balanced diet, preferably low in saturated fats (solid at room temperature, such as butter, margarine, Crisco, etc) and low in sodium (<2,000mg per day). Consume plenty of fruits/vegetables , healthy grains/whole grains, unsaturated/healt hy fats (liquid at room temperature, such as olive oil, sunflower seed oil, canola, vegetable, etc.). Exercise regularly - Develop an exercise routine. 30 minutes of moderate exercise (walking at a brisk pace) 5 times per week is recommended. You should work hard enough to cause a sweat but still be able to talk with others while exercising. Exercise improves overall health - improves blood pressure and blood sugar, helps control weight, reduces stress, and improves mood. Practice stress reduction techniques, such as guided imagery, journaling, aromatherapy, acupuncture/acupr essure, deep breathing, etc. Practice healthy sleep hygiene - maintain regular routine, no caffeine after 1PM, no exercise 1-2 hours prior to bedtime, keep bedroom dark and cool, no TV or electronics while in bed. Consider melatonin as needed. Consider cognitive behavioral therapy for insomnia (CBT-I). Consider/Continue therapy. Consider/Continue substance cessation therapy as needed - contact office if desiring medication assisted therapy. Manage co-morbid conditions. Continue monitoring symptoms - report persistent or worsening/concern ing symptoms to the office or go to the ER. For mental health CRISIS, please reach out to [phone] ([facility] Suicide and Crisis Lifeline), 911, go to the emergency department, or contact the [facility] Crisis Unit/Team. Follow up as scheduled in 4 weeks or sooner if necessary. Follow up with PCP and/or other specialists as advised. NEXT STEP: Consider medication adjustments for anxiety/depressio n as needed. Consider screening for ADHD and treating accordingly. Consider other medication adjustments. Review labs. 01/09/2025 MDD (major depressive disorder) (ICD-10 - F32.9) 01/09/2025 Inattention (ICD-10 - R41.840) 01/08/2025 Over weight (ICD-10 - E66.3) 02/07/2025 Over weight (ICD-10 - E66.3) 01/08/2025 Screening for thyroid disorder (ICD-10 - Z13.29) 01/09/2025 Over weight (ICD-10 - E66.3) 01/08/2025 Screening for hyperlipidemia (ICD-10 - Z13.220) 01/09/2025 Screening for thyroid disorder (ICD-10 - Z13.29) 01/08/2025 Screening for diabetes mellitus (ICD-10 - Z13.1) 01/09/2025 Screening for hyperlipidemia (ICD-10 - Z13.220) 01/09/2025 Screening for diabetes mellitus (ICD-10 - Z13.1) Plan Of Treatment No Information Insurance Providers Payer Name Payer Address Payer Phone Subscriber Number Group Number Insured Name Patient Relationship to Insured Coverage Start Date Coverage End Date [facility] Claims Department [address] [place] [address] [phone] [id number] Manjula Head Self - patient is the insured 5 [facility] Claims Department [address] [place] [address] [phone] [id number] Adilene Manjula Self - patient is the insured 5 Medical (General) History Medical History History ICD Code anxiety depression pcos
[2025-03-10 09:38] LABS: Basophils Absolute Auto 0.1 K/mm3 (0.0-0.1); Basophils Percent Auto 0.4 % (0.2-1.2); Eosinophils Absolute Auto 0.2 K/mm3 (0-0.3); Eosinophils Percent Auto 1.4 % (0-4.4); Hematocrit 43.7 % (37.0-47.0); Hemoglobin 14.8 g/dL (12.0-15.0); Immature Granulocyte Absolute 0.06 K/mm3 (0.00-0.031); Immature Granulocyte Percent A 0.4 % (0-0.5); Lymphocytes Absolute Auto 2.36 K/mm3 (0.9-3.2); Lymphocytes Percent Auto 17.3 % (18.3-44.2); Mean Corpuscular HGB Conc 33.9 g/dl (32-36); Mean Corpuscular Hemoglobin 30.8 pg (26-34); Mean Corpuscular Volume 90.9 fl (80-100); Mean Platelet Volume 9.5 fl (7.4-10.4); Monocytes Absolute Auto 0.7 K/mm3 (0.1-0.6); Monocytes Percent Auto 5.4 % (2.6-8.5); Neutrophils Absolute Auto 10.3 K/mm3 (1.3-6.7); Neutrophils Percent Auto 75.1 % (45.5-73.1); Platelet Count Result 331 k/mm3 (150-375); Red Blood Count 4.81 M/mm3 (4.2-5.4); Red Cell Distribution Width 13.4 % (11.5-14.5); White Blood Count 13.6 K/mm3 (4.5-10.0)
[2025-03-10 09:50] LABS: Alanine Aminotransferase 22 U/L (6-35); Albumin Level 4.8 g/dL (3.5-5.1); Alkaline Phosphatase 103 U/L (38-126); Anion Gap 10 mmol/L (4-12); Aspartate Amino Transferase 25 U/L (14-36); Bilirubin,Total 0.3 mg/dL (0.2-1.3); Blood Urea Nitrogen 9 mg/dL (7-17); Calcium 9.7 mg/dL (8.4-10.2); Carbon Dioxide 26 mmol/L (22-30); Chloride 105 mmol/L (98-107); Estimated CRCL calculation 110 ml/min; Estimated Glomerular Filt Rate > 60; Glucose 98 mg/dL (65-110); Lipase 44 U/L (23-300); Sodium 141 mmol/L (137-145)
[2025-03-10 10:38] LABS: BEDSIDEPREGUCG Negative (Negative)
--- NOTE | 2025-03-10 10:41 | ED_ITS ---
HPI - Abdominal Pain General Chief Complaint: Abdominal Pain Stated Complaint: abd pain Time Seen by Provider: 03/10/25 09:10 Source: patient Mode of arrival: ambulatory Limitations: no limitations History of Present Illness HPI narrative: This is a 25 year old female that presents to the ER for abdominal pain, nausea, vomiting. Ongoing since this morning. Reports some diarrhea. Reports mid abdominal pain. Reports she smokes marijuana, sometimes a hot bath will help, but it did not today. She has been having recurrent episodes like this monthly. Denies fevers, dysuria, hematuria. Related Data Home Medications ?Medication ?Instructions ?Recorded ?Confirmed ?Last Taken ?Type prenat.vits,brian,bhg-iopi-jsbjk 1 tablet PO DAILY 04/27/22 04/27/22 04/26/22 12:30 History Allergies Allergy/AdvReac Type Severity Reaction Status Date / Time No Known Drug Allergies Allergy Unknown Verified 03/10/25 08:58 Review of Systems 2 Review of Systems: CONSTITUTIONAL: Denies fever GASTROINTESTINAL: Reports abdominal pain, nausea, vomiting, and diarrhea. GENITOURINARY: Denies dysuria or hematuria. All systems reviewed & are unremarkable except as noted in HPI and below PMFSH Past Medical History Medical History (Updated 03/10/25 @ 13:22 by Sarah Pena PA-C) Polycystic ovarian syndrome Obese Surgical History Surgical History (Updated 10/08/21 @ 02:02 by Ebenezer Gonsales MD) No pertinent past surgical history Family History Family History (Updated 04/27/22 @ 14:32 by Reanna Noyola RN) Other No pertinent family history Social History Social History Smoking status: Current every day smoker Second hand tobacco smoke exposure: No Substance use: current Last use: 04/26/22 Gender identity (if verbalized by the patient): Female Spiritual care concerns: No Exam 2 Narrative: GENERAL: Well-appearing, well-nourished, and in no acute distress. HEAD: Normocephalic, atraumatic. EYES: EOMI. CHEST: Clear to auscultation. No respiratory distress. No wheezes rales or rhonchi HEART: Regular rate and rhythm. No murmur heard. Normal peripheral pulses. ABDOMEN: Soft, nondistended, normal active bowel sounds. Mild tenderness to palpation in the epigastrium, without guarding EXTREMITIES: Normal range of motion. No edema. SKIN: Warm, dry, no rash. NEURO: No focal deficits. Alert and oriented x3. PSYCH: Normal mood and affect Course Course Emergency Course: patient updated on her workup. Given option of discharge with pain control versus admission/possible surgery today. She would like to go home and follow up outpatient Consultations Consultation #1: Spoke with general surgery. Patient will be given option of discharge with pain control versus admission/possible surgery today. Date: 03/10/25 Vital Signs Vital signs: Vital Signs Temperature 97.5 F L 03/10/25 08:56 Pulse Rate 77 03/10/25 08:56 Respiratory Rate 20 03/10/25 08:56 Blood Pressure 160/110 H 03/10/25 08:56 Pulse Oximetry 100 03/10/25 08:56 Oxygen Delivery Room Air 03/10/25 08:56 Temperature 97.5 F L 03/10/25 08:56 Pulse Rate 77 03/10/25 08:56 Respiratory Rate 20 03/10/25 08:56 Blood Pressure 160/110 H 03/10/25 08:56 Pulse Oximetry 100 03/10/25 08:56 Oxygen Delivery Room Air 03/10/25 08:56 MDM - Abdominal Pain MDM Narrative Medical decision making narrative: Patient presents to the emergency department for epigastric abdominal discomfort. She is afebrile and nontoxic appearing. CBC with leukocytosis to 13.6. Metabolic panel and lipase without concerning findings. Urine without evidence of infection. CT abdomen and pelvis shows cholelithiasis including a gallstone at the gallbladder neck, otherwise normal appearing gallbladder. Spoke with general surgery. Patient will be given option of discharge with pain control versus admission/possible surgery today. She would like to go home and follow up outpatient. Will be started on oral antibiotics and given pain medication as needed, information on low-fat diet. She is to follow up with General surgery. She was given warnings to return to the ER Differential Diagnosis Differential diagnosis: Likely gastroenteritis, pancreatitis and other (biliary colic, gastritis, GERD) Lab Data Attestation: I reviewed the patient's lab results. 03/10/25 09:30 03/10/25 09:30 Labs: Lab Results 03/10/25 03/10/25 03/10/25 Range/Units 09:30 10:34 10:36 WBC 13.6 H (4.5-10.0) K/mm3 RBC 4.81 (4.2-5.4) M/mm3 Hgb 14.8 D (12.0-15.0) g/dL Hct 43.7 (37.0-47.0) % MCV 90.9 (80-100) fl MCH 30.8 (26-34) pg MCHC 33.9 (32-36) g/dl RDW 13.4 (11.5-14.5) % Plt Count 331 (150-375) k/mm3 MPV 9.5 (7.4-10.4) fl Immature Gran % (Auto) 0.4 (0-0.5) % Neut % (Auto) 75.1 H (45.5-73.1) % Lymph % (Auto) 17.3 L (18.3-44.2) % Amelia % (Auto) 5.4 (2.6-8.5) % Eos % (Auto) 1.4 (0-4.4) % Baso % (Auto) 0.4 (0.2-1.2) % Lymph # (Auto) 2.36 (0.9-3.2) K/mm3 Amelia # (Auto) 0.7 H (0.1-0.6) K/mm3 Eos # (Auto) 0.2 (0-0.3) K/mm3 Baso # (Auto) 0.1 (0.0-0.1) K/mm3 Abs Immat Gran (auto) 0.06 H (0.00-0.031) K/mm3 Absolute Neuts (auto) 10.3 H (1.3-6.7) K/mm3 Absolute Nucleated RBC 0.000 (0.0-0.012) K/mm3 Nucleated RBC % 0.0 (0.0-0.2) % Sodium 141 (137-145) mmol/L Potassium 4.0 (3.4-5.0) mmol/L Chloride 105 (98-107) mmol/L Carbon Dioxide 26 (22-30) mmol/L Anion Gap 10 (4-12) mmol/L BUN 9 D (7-17) mg/dL Creatinine 0.71 (0.7-1.0) mg/dL Estim Creat Clear Calc 110 ml/min Estimated GFR > 60 (59 - ) Glucose 98 (65-110) mg/dL Calcium 9.7 (8.4-10.2) mg/dL Total Bilirubin 0.3 (0.2-1.3) mg/dL AST 25 (14-36) U/L ALT 22 (6-35) U/L Alkaline Phosphatase 103 (38-126) U/L Total Protein 8.0 (6.3-8.2) g/dL Albumin 4.8 (3.5-5.1) g/dL Lipase 44 (23-300) U/L Urine Color Yellow (Yellow) Urine Appearance Clear (Clear) Urine pH 7.5 (5.0-9.0) Ur Specific [place] 1.018 (1.001-1.035) Urine Protein Negative (Negative) mg/dL Urine Glucose (UA) Negative (Negative) mg/dL Urine Ketones Negative (Negative) mg/dL Ur Blood (Man) Negative (Negative) Urine Nitrate Negative (Negative) Urine Bilirubin Negative (Negative) Urine Urobilinogen 0.2 (<2.0) mg/dL Add Ur Microanalysis Reviewed Leukocyte Esterase Rfl 1+ H (Negative) DAPHNE/UL Urine RBC 0-2 (0-2) /hpf Urine WBC 0-5 (0-3) /hpf Ur Squamous Epith Cells Few (Few) /hpf Urine Bacteria 3+ H /hpf Urine Casts 3-5 POC Urine HCG, Qual Negative (Negative) Imaging Data Radiologist's impression: ITS Impressions Abdomen/Pelvis CT 03/10/25 11:01 IMPRESSION: 1. Cholelithiasis including a gallstone at the neck of the otherwise normal- appearing gallbladder. 2. Fluid throughout the colon consistent with nonspecific diarrhea. Critical Care Time Critical Care Time Critical Care Time: No Discharge Plan Discharge Clinical Impression: Biliary colic Cholelithiasis Qualifiers: Cholelithiasis location: gallbladder Cholecystitis presence: without cholecystitis Biliary obstruction: without biliary obstruction Qualified Code(s): K80.20 - Calculus of gallbladder without cholecystitis without obstruction Patient Disposition: Home Condition: Improved Instructions: Antibiotic Form, Biliary Colic (ED), Low Fat Diet (ED) Additional Instructions: Return to the ER if you experience fever, abdominal pain with nausea and vomiting, you are unable to keep down liquids or solids, blood in the stool, pain or burning with urination, blood in the urine or any other symptoms that are concerning to you Remain well hydrated. Low fat diet. Take oral antibiotic as prescribed. Pain medication as needed Follow up with general surgery Patient Language: Bengali Prescriptions: New amoxicillin-pot clavulanate 875-125 mg tablet 1 tablet PO Q12H 5 Days Qty: 10 0RF oxycodone-acetaminophen [Percocet] 5-325 mg tablet 1 tablet PO Q6H PRN (Reason: pain) Qty: 20 0RF No Action prenat.vits,brian,jdq-exjg-ivoio Tablet 1 tablet PO DAILY ibuprofen 600 mg Tablet 600 mg PO Q6H PRN (Reason: Cramping) Qty: 30 0RF Follow-up/Referrals: PHYSICIAN,WEED CONTROLLER [Primary Care Provider] - Isaac Leonard DO [Physician] -
[2025-03-10] MEDS: ONDANSETRON INJ 4 MG/2 ML VIAL IV PUSH (10:54)
[2025-03-10] MEDS: SODIUM CHLORIDE 0.9% IV 1,000 ML 999 ML IV CONT (10:54)
[2025-03-10 10:55] LABS: Add Urine Microscopic? YES; Appearance Urine Clear (Clear); Bacteria Urine 3+ /hpf; Bilirubin Urine Negative (Negative); Blood Urine Negative (Negative); Color Urine Yellow (Yellow); Glucose Urine UA Negative (Negative); Ketones Urine Negative (Negative); Leukocyte Esterase Ur 1+ LEU/UL (Negative); Need Manual Microscopic Reviewed; Nitrate Urine Negative (Negative); Protein Urine Negative (Negative); RBC Urine 0-2 /hpf (0-2); Specific Grav Ur 1.018 (1.001-1.035); Squamous Epithelial Cell Urine Few /hpf (Few); Urobilinogen Urine 0.2 mg/dL (<2.0); WBC Urine 0-5 /hpf (0-3); pH Urine 7.5 (5.0-9.0)
[2025-03-10] MEDS: FAMOTIDINE 20 MG/2 ML VIAL IV PUSH (10:55)
--- OUTSIDE RECORDS SUMMARY | 2025-03-10 10:55 | XMS_ITS | CONTINUITY OF CARE DOCUMENT ---
Author Name anand leliamarlon Address Unknown Organization [facility] Address [address] [place] [address] Phone [phone] Care Team Providers Care Senior Financial Accountant Name Role Phone Joe Barba MD Unavailable RENETTA WOOD Unavailable [phone] HOPRENETTA WILEY Unavailable [phone] PROBLEMS Condition Status Date Provider Notes Bradycardia - sinus active Joe Barba MD HTN essential active Joe Barba MD SNORING active Joe Barba MD Palpitations active Joe Barba MD Cardiology examination active Joe reeves MD ENCOUNTERS Date Type Provider Location Encounter Diag nosis - In-person encounter Office Visit Joe Barba MD [facility] HTN essential - In-person encounter Office Visit Joe Barba MD [facility] SNORING - In-person encounter Office Visit Joe Barba MD [facility] Cardiology examinationPalpitations VITAL SIGNS Date Observation Value Provider Body Mass Index (Ratio) 35.07 kg/m2 Mounika Barba MD blood pressure, diastolic 95 mm[Hg] Berna nkLogfreda blood pressure, systolic 143 mm[Hg] Jessica Pollardogfreda blood pressure, diastolic 95 mm[Hg] Kelsey Fan blood pressure, systolic 143 mm[Hg] Valentino dixon [place] pulse rate 105 /[facility] 98 % Mela [place] weight E&M 198 [lb_av] [facility], cuff size large Kelsey albrecht [place] respiratory rate E&M 16 /min Lou carrion [place] height E&M 63 [in_i] [facility] Body [facility] Index (Ratio) 35.25 kg/m2 Mounika [...] Payer name Policy type / Coverage type [place] [employer] [place] MEDICAID (2) Medicaid [id number] ADVANCE DIRECTIVES Name Date DISCUSSED - NO DECISION MADE TREATMENT PLAN Date Name Performer [id number],C,d ietary modification first n o meds at present Julio Alston NP [id number],C,P andrea continues to have palpitations. S he has a monitor in place as she awaits loop recorder implantation. Julio Alston NP [id number],S,0 02/03/23 P andrea still has monitor in [...] underlying cause for bradycardia. Julio Alston NP [id number],S, I ntermittent snoring. Patient is yet to complete the sleep study. n eeds home sleep study Julio Alston DANA [id number],C,Intermittent snoring check for ANNAMARIA Joe Barba MD [id number],S,Echo is pendi ng Joe Barba MD [id number],C, n eed to get 2wk tele the holter did not demonstrate any sig findings only had some pac and rare pvc bsed on description in report I DONT HAV THE TRACINGS TO LOOK AT AND NOTHIGN WAS SENT IN TO OUR OFFICE [facility] a lso check thryoid GET BLOODWORK FROM [facility] g et echo done ? midsystolic click on exam s ays she doesnt snore had been eval for tonsils before not removed apparently due to not snoring n o preexcitation on ekg Joe Barba MD [id number],C,R eviewed her tele tracings with her. She [...] underlying cause for bradycardia. Joe Barba MD [id number],S,n eed to get 2wk tele the holter did not demonstrate any sig findings only had some pac and rare pvc bsed on description in report I DONT HAV THE TRACINGS TO LOOK AT AND NOTHIGN WAS SENT IN TO OUR OFFICE FROM [facility] a lso check thryoid GET BLOODWORK FROM [facility] g et echo done ? midsystolic click [...] WAS SENT IN TO OUR OFFICE FROM [facility] a lso check thryoid GET BLOODWORK FROM [facility] g et echo done ? midsystolic click [...] WAS SENT IN TO OUR OFFICE FROM [facility] a lso check thryosd GET BLOODWORK FROM [facility] g et echo done ? midsystolic click [...]
--- OUTSIDE RECORDS SUMMARY | 2025-03-10 10:55 | XMS_ITS | Clinical Summary ---
Author Organization [facility] Address [address] [place] [address] Care Team Providers Care Traffic Survey Technician Name Role Phone Eunice Garcia MD Primary Care Provider [phone] Source Comments [facility],non-owned Affiliates and Associated Physician Practices is amultiple site organization consisting of ambulatory clinics and hospital sitesin [place], [place], [place] and [place]. This disclosure is being madepursuant to the Care Everywhere program and may not contain all information available regarding this patient. Last updated 18.[facility] Allergies No known active allergies Medications * [...] 11/06/2017 Overview (11/06/2017): Aug 30, 2017 - [facility] [address] [place] [address] ([facility]) Insulin 221 uIU/mL (2.6-24.9), prolactin 37.6 ng/mL (4.8-23.3), total testosterone 28.5 ng/dL (20-38, Terence V, age: 11.8-18.6), free testosterone 7.1 pg/mL (ref range not given), fasting glucose 87 mg/dL, (1 hr) 93 mg/dL, (2 hr) 104 mg/dL, TSH 0.788 uIU/mL (0.45-4.5), free T4 (direct) 1.17 ng/dL (0.93-1.60), Assessment & Plan (11/06/2017 3:36 PM FIELD INSPECTOR): Mildly elevated serum prolactin level; cause uncertain (? Medication effect, OCP) 1. Repeat serum (fasting) prolactin level) 2. Obtain prior laboratory results from [facility] 3. Review medication/prolactin effects 4. Return appointment [...] on file Legal Sex Female 9:56 AM FIELD INSPECTOR Gender Identity Not on file Sexual Orientation Not on file Last Filed Vital Signs Vital Sign Reading Time Taken Comments Blood Pressure 124/76 09/09/2019 12:37 PM FIELD INSPECTOR Pulse 84 09/09/2019 12:37 PM FIELD INSPECTOR Temperature 37.1 C (98.7 F) 01/01/2020 11:17 AM CDT Respiratory Rate 20 09/09/2019 12:37 PM FIELD INSPECTOR Oxygen Saturation 99% 09/20/2018 2:20 PM FIELD INSPECTOR Inhaled Oxygen Concentration - - Weight 107.5 kg (237 lb) 01/01/2020 11:17 AM CDT Height 159.6 cm (5' 2.84) 09/09/2019 12:[address] Body Mass Index 42.2 09/09/2019 12:37 PM FIELD INSPECTOR Plan of Treatment Health Maintenance Due Date [...] time) Exercise On track( 018 9:23 AM FIELD INSPECTOR) No Shannan Ochoa, KATJA Use safety retraint in car Lifestyle On track( 020 11:17 AM CDT) No Shannan Ochoa, draughtsman Procedure Name Priority Date/Time Associated Diagnosis Comments [...] CDT 06/15/2018 Narrative Resulting Agency Comment [facility] [address] [place] [id number] Eunice Garcia MD LAB - MICROBIOLOGY ORDERABLES Final Result [facility] INSURANCE BILL [address] [place] [address] from Last 3 Months or Most Recently Relevant to Health Maintenance Insurance [facility] Care Teams Traffic Survey Technician Relationship Specialty Start Date End Date Eunice Garcia MD PCP - General 01/05/12
--- OUTSIDE RECORDS SUMMARY | 2025-03-10 10:55 | XMS_ITS | Encounter Summary ---
Author Organization [facility] Address [address] [place] [address] Care Team Providers Care Wad Blanking Press Adjuster Name Role Phone Eunice Garcia MD Primary Care Provider [phone] Encounter Details Date Type Department Care Team (Late st Contact Info) Description 11/16/2018 Telephone [facility] Pediatrics - [address] [address] Alicia Alex MD [address] [place] [id number] Social History Tobacco Use Types Packs/Day Years Used Date Smoking Tobacco: Passive Smo ke Exposure - Never Smoker Smokeless Tobacco: Never Comments:Parents smoke outsi de Alcohol Use Standard Drinks/Week Comments No 0 (1 standard drink = 0.6 oz pur e alcohol) Comments No Sex and Gender Information Value Date Recorded Sex Assigned at Not on file Legal Sex Female 9:56 AM CO FOUNDER AND CEO Gender Identity Not on file Sexual Orientation Not on file documented as of this encounter Miscellaneous Notes * Telephone Encounter - Siobhan Bloom - 11/19/2018 11:51 AM CST Spoke with mom informed of message below FOUNDER AND CEO * Telephone Encounter - Aga Mckeon RN - 11/19/2018 11:40 AM CST LM for mom to call office to let her know the prescription has been sent. FOUNDER AND CEO * Telephone Encounter - Alicia Alex MD - 11/19/2018 11:31 AM CO FOUNDER AND CEO EKG overall normal. I sent the prescription for Elavil that we discussed. FOUNDER AND CEO * Telephone Encounter - Aga Mckeon RN - 11/19/2018 10:29 AM CST Received EKG. Placed in Dr. Alex's mailbox. FOUNDER AND CEO * Telephone Encounter - Tammy Connell RN - 11/19/2018 8:45 AM CO FOUNDER AND CEO Spoke with Ricky Fair had EKG done @ [facility] in [place]. [place] will fax results to our office to be reviewed. FOUNDER AND CEO * Telephone Encounter - Siobhan Bloom - 11/16/2018 3:14 PM CST Patient LM wants to know if our office received EKG results. FOUNDER AND CEO documented in this encounter Plan of Treatment Not on file documented as of this encounter Goals Goal Patient Goal Type Associated Problems Recent Progress Patient-Stated? Author Exercise 3X per week (30 min per time) Exercise On track( 018 9:23 AM CO FOUNDER AND CEO) No Shannan Ochoa RN Use safety retraint in car Lifestyle On track( 020 11:17 AM CDT) No Shannan Ochoa RN documented as of this encounter Visit Diagnoses Not on filedocumented in this encounter Care Teams Wad Blanking Press Adjuster Relationship Specialty Start Date End Date Eunice Garcia MD PCP - General 01/05/12 documented as of this encounter
[2025-03-10] MEDS: KETOROLAC 15 MG/ML VIAL (*BKC) IV PUSH (12:01)
[2025-03-10 13:45] VITALS: BP 124/69; PULSE 62; RESP 16; O2SAT 100
== END 2025-03-10 13:45 | disposition home or self-care (01) ==
PROVIDERS: Emergency Provider Physician Assistant
DX: K80.20 Calculus of gallbladder without cholecystitis without obstruction (principal)
CPT/HCPCS: 36415; 74177; 80053; 81001; 81025; 83690; 85025; 87086; 96361; 96374; 96375; 99284; J1885; J2405; J7030; Q9967

== ENCOUNTER 2025-08-12 12:00 | Outpatient (CLI) | payer OTHER, SELFPAY ==
--- OUTSIDE RECORDS SUMMARY | 2025-01-09 07:20 | XMS_ITS ---
Author Organization [facility] Address [address] [place] [address] Care Team Providers Care Stile Ripsaw Operator Name Role Phone Laura Iniguez Primary Care Provider ArguetaRobert baker Unavailable [phone] Results Component Value Reference Range Notes CMP 14 Comprehensive Metabol ic Panel* Reviewed date:01/14/2025 11:09:46 AM Interpretation: Performing Lab:[place], [address] [facility], Phone - [phone], Director - [facility] Notes/Report: Glucose 75 70-99 mg/dL BUN 10 6-20 mg/dL Creatinine 0.77 0.57-1.00 mg/dL eGFR 111 >59 mL/min/1.73 BUN/Creatinine Ratio 13 9-23 Sodium 141 134-144 mmol/L Potassium 4.7 3.5-5.2 mmol/L Chloride 103 96-106 mmol/L Carbon Dioxide, Total 25 20-29 mmol/L Calcium 9.5 8.7-10.2 mg/dL Protein, Total 7.1 6.0-8.5 g/dL Albumin 4.5 4.0-5.0 g/dL Globulin, Total 2.6 1.5-4.5 g/dL Bilirubin, Total 0.2 0.0-1.2 mg/dL Alkaline Phosphatase 114 44-121 IU/L AST (SGOT) 13 0-40 IU/L ALT (SGPT) 15 0-32 IU/L Lipid Panel* Reviewed date:01/14/2025 11:09:13 AM Interpretation: Performing Lab:[facility], [place], Phone - [phone], Director - PhDRicchiuti Notes/Report: Cholesterol, Total 189 100-199 mg/dL Triglycerides 128 0-149 mg/dL HDL Cholesterol 41 >39 mg/dL VLDL Cholesterol Claude 23 5-40 mg/dL LDL Chol Calc (NIH) 125 0-99 mg/dL TSH+Free T4* Reviewed date:01/14/2025 11:08:51 AM Interpretation: Performing Lab:[address], Phone - [phone], Director - [facility] Notes/Report: TSH 0.514 0.450-4.500 uIU/mL T4,Free(Direct) 1.16 0.82-1.77 ng/dL Folate (Folic Acid), Serum* Reviewed date:01/14/2025 11:09:29 AM Interpretation: Performing Lab:[address], Phone - [phone], Director - [facility] Notes/Report: Folate (Folic Acid), Serum 4.8 >3.0 ng/mL A serum folate concentration of less than 3.1 ng/mL is considered to represent clinical deficiency. Vitamin B12* Reviewed date:01/14/2025 11:08:43 AM Interpretation: Performing Lab:[address], Phone - [phone], Director - [facility] Notes/Report: Vitamin B12 645 885-1158 pg/mL Nadege Ellington CMP14 Default A hand-written panel/profile was received from your office. In accordance with the [facility] Ambiguous Test Code Policy dated April 2003, we have completed your order by using the closest currently or formerly recognized AMA panel. We have assigned Comprehensive Metabolic Panel (14), Test Code #940015 to this request. If this is not the testing you wished to receive on this specimen, please contact the [facility] Client Inquiry/Technical Services Department to clarify the test order. We appreciate your business. Hemoglobin A1c* Reviewed date:01/14/2025 11:09:22 AM Interpretation: Performing Lab:[address], Phone - [phone], Director - [facility] Notes/Report: Hemoglobin A1c 5.0 4.8-5.6 % . Prediabetes: 5.7 - 6.4 Diabetes: >6.4 Glycemic control for adults with diabetes: <7.0 Vitamin D, 25-Hydroxy* Reviewed date:01/14/2025 11:08:33 AM Interpretation: Performing Lab:[facility] [place], [address] [facility], Phone - [phone], Director - [place] Notes/Report: Vitamin D, 25-Hydroxy 11.3 30.0-100.0 ng/mL Vitamin D deficiency has been defined by the [place] of Medicine and an Endocrine Society practice guideline as a level of serum 25-OH vitamin D less than 20 ng/mL (1,2). The Endocrine Society went on to further define vitamin D insufficiency as a level between 21 and 29 ng/mL (2). 1. IOM ([place] of [employer]). 2010. Dietary reference intakes for calcium and D. [place]: The National Academies Press. 2. Alexander MF, Madina MISHRA, Ines YIN, et al. Evaluation, treatment, and prevention of vitamin D deficiency: an Endocrine Society clinical practice guideline. JCEM. 2010; 96(7):1911-30. REASON FOR VISIT lab Social History Sex Assigned At : Social History Observation Description Sex Assigned At Female Encounters Encounter Location Date Provider Diagnosis [address] [address] 01/09/2025 Robert Argueta MARY (generalized anxiety disorder) F41.1 ; MDD (major depressive disorder) F32.9 ; Inattention R41.840 ; Over weight E66.3 ; Screening for thyroid disorder Z13.29 ; Screening for hyperlipidemia Z13.220 and Screening for diabetes mellitus Z13.1 Assessments Encounter Date Diagnosis (ICD Code) Assessment Notes Treatment Notes Treatment Clinical Notes Section Notes 01/09/2025 MARY (generalized anxiety disorder) (ICD-10 - F41.1) 01/09/2025 MDD (major depressive disorder) (ICD-10 - F32.9) 01/09/2025 Inattention (ICD-10 - R41.840) 01/09/2025 Over weight (ICD-10 - E66.3) 01/09/2025 Screening for thyroid disorder (ICD-10 - Z13.29) 01/09/2025 Screening for hyperlipidemia (ICD-10 - Z13.220) 01/09/2025 Screening for diabetes mellitus (ICD-10 - Z13.1) Plan Of Treatment No Information Progress Notes * Manjula LEE NDOB:[birth year] (25 yo F)Acc No.[id number]:01/09/2025 UNLOCKED PROGRESS NOTE Patient: Manjula SINGLETARY Provider: Kaylee Argueta APN :2000 A ge:24 Y S ex:Female Date:01/09/2025 Address:[address] [place], [place] [id number] Pcp:Laura Iniguez 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 Lab. * Medical History: Objective: * Vitals: Assessment: * Assessment: 1. G AD (generalized anxiety disorder) - F41.1 2 . M DD (major depressive disorder) - F32.9 3 . I nattention - R41.840 4 . O aquilino weight - E66.3 5 . S creening for thyroid disorder - Z13.29 6 . S creening for hyperlipidemia - Z13.220 7 . S creening for diabetes mellitus - Z13.1 Plan: * Treatment: 2. M DD (major depressive disorder) L AB: CBC With Differential/Platelet* (Order Cancelled) L AB: Hemoglobin A1c* (Collection Date & Time - 01/10/2025 01:44 PM) L AB: Vitamin B12* (Collection Date & Time - 01/10/2025 01:44 PM) L AB: Folate (Folic Acid), Serum* (Collection Date & Time - 01/10/2025 01:44 PM) L AB: Vitamin D, 25-Hydroxy* (Collection Date & Time - 01/10/2025 01:44 PM) L AB: TSH+Free T4* (Collection Date & Time - 01/10/2025 01:44 PM) L AB: Lipid Panel* (Collection Date & Time - 01/10/2025 01:44 PM) L AB: CMP 14 Comprehensive Metabolic Panel* (Collection Date & Time - 01/10/2025 01:44 PM) 3. I nattention L AB: CBC With Differential/Platelet* (Order Cancelled) L AB: Hemoglobin A1c* (Collection Date & Time - 01/10/2025 01:44 PM) L AB: Vitamin B12* (Collection Date & Time - 01/10/2025 01:44 PM) L AB: Folate (Folic Acid), Serum* (Collection Date & Time - 01/10/2025 01:44 PM) L AB: Vitamin D, 25-Hydroxy* (Collection Date & Time - 01/10/2025 01:44 PM) L AB: TSH+Free T4* (Collection Date & Time - 01/10/2025 01:44 PM) L AB: Lipid Panel* (Collection Date & Time - 01/10/2025 01:44 PM) L AB: CMP 14 Comprehensive Metabolic Panel* (Collection Date & Time - 01/10/2025 01:44 PM) 4. O aquilino weight L AB: CBC With Differential/Platelet* (Order Cancelled) L AB: Hemoglobin A1c* (Collection Date & Time - 01/10/2025 01:44 PM) L AB: Vitamin B12* (Collection Date & Time - 01/10/2025 01:44 PM) L AB: Folate (Folic Acid), Serum* (Collection Date & Time - 01/10/2025 01:44 PM) L AB: Vitamin D, 25-Hydroxy* (Collection Date & Time - 01/10/2025 01:44 PM) L AB: TSH+Free T4* (Collection Date & Time - 01/10/2025 01:44 PM) L AB: Lipid Panel* (Collection Date & Time - 01/10/2025 01:44 PM) L AB: CMP 14 Comprehensive Metabolic Panel* (Collection Date & Time 01/10/2025 01:44 PM) 5. S creening for thyroid disorder L AB: CBC With Differential/Platelet* (Order Cancelled) L AB: Hemoglobin A1c* (Collection Date & Time - 01/10/2025 01:44 PM) L AB: Vitamin B12* (Collection Date & Time - 01/10/2025 01:44 PM) L AB: Folate (Folic Acid), Serum* (Collection Date & Time - 01/10/2025 01:44 PM) L AB: Vitamin D, 25-Hydroxy* (Collection Date & Time - 01/10/2025 01:44 PM) L AB: TSH+Free T4* (Collection Date & Time - 01/10/2025 01:44 PM) L AB: Lipid Panel* (Collection Date & Time - 01/10/2025 01:44 PM) L AB: CMP 14 Comprehensive Metabolic Panel* (Collection Date & Time - 01/10/2025 01:44 PM) 6. S creening for hyperlipidemia L AB: CBC With Differential/Platelet* (Order Cancelled) L AB: Hemoglobin A1c* (Collection Date & Time - 01/10/2025 01:44 PM) L AB: Vitamin B12* (Collection Date & Time - 01/10/2025 01:44 PM) L AB: Folate (Folic Acid), Serum* (Collection Date & Time - 01/10/2025 01:44 PM) L AB: Vitamin D, 25-Hydroxy* (Collection Date & Time - 01/10/2025 01:44 PM) L AB: TSH+Free T4* (Collection Date & Time - 01/10/2025 01:44 PM) L AB: Lipid Panel* (Collection Date & Time - 01/10/2025 01:44 PM) L AB: CMP 14 Comprehensive Metabolic Panel* (Collection Date & Time - 01/10/2025 01:44 PM) 7. S creening for diabetes mellitus L AB: CBC With Differential/Platelet* (Order Cancelled) L AB: Hemoglobin A1c* (Collection Date & Time - 01/10/2025 01:44 PM) L AB: Vitamin B12* (Collection Date & Time - 01/10/2025 01:44 PM) L AB: Folate (Folic Acid), Serum* (Collection Date & Time - 01/10/2025 01:44 PM) L AB: Vitamin D, 25-Hydroxy* (Collection Date & Time - 01/10/2025 01:44 PM) L AB: TSH+Free T4* (Collection Date & Time - 01/10/2025 01:44 PM) L AB: Lipid Panel* (Collection Date & Time - 01/10/2025 01:44 PM) L AB: CMP 14 Comprehensive Metabolic Panel* (Collection Date & Time - 01/10/2025 01:44 PM) * * Electronic signature of Robert Argueta on 08/12/2025 at 02:06 PM WELDING OPERATOR Sign off status: Pending * Provider: Kaylee Argueta APN Date: 0 01/09/2025 Generated for Cintia osman/Migdalia/Kingitting on: 1 10/12/2024 02:06 PM WELDING OPERATOR
--- OUTSIDE RECORDS SUMMARY | 2025-02-13 07:00 | XMS_ITS ---
Author Organization [facility] Address [address] [place] [address] Care Team Providers Care Automated Access Systems Technician Name Role Phone Laura Iniguez Primary Care Provider ArguetaRobert baker Unavailable [phone] Results Component Value Reference Range Notes CBC With Differential/Platel et* Reviewed date:02/18/2025 04:34:10 PM Interpretation: Performing Lab:[facility] [place], [address] [facility], [place], Phone - [phone], [facility] - [facility] Notes/Report: WBC 8.9 3.4-10.8 x10E3/uL RBC 4.70 [...] Female Encounters Encounter Location Date Provider Diagnosis [address] [address] 02/13/2025 Robert Argueta Leukocytosis D72.829 and Neutrophilia D72.9 Assessments Encounter Date Diagnosis (ICD Code) Assessment Notes Treatment Notes Treatment Clinical Notes Section Notes 02/13/2025 Leukocytosis (ICD-10 - D72.829) 02/13/2025 Neutrophilia (ICD-10 - D72.9) Plan Of Treatment No Information Progress Notes * Manjula LEE NDOB:[birth year] (25 yo F)Acc No.[id number]:02/13/2025 UNLOCKED PROGRESS NOTE Patient: Manjula SINGLETARY N Provider: Kaylee Argueta APN :2000 A ge:24 Y S ex:Female Date:02/13/2025 Address:[address] [place], [place] [phone] Pcp:Laura Iniguez Check 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 Labs. * Medical History: Objective: * Vitals: Assessment: * Assessment: 1. L eukocytosis - D72.829 2 . N eutrophilia - D72.9 Plan: * Treatment: 2. N eutrophilia L AB: CBC With Differential/Platelet* (Collection Date & Time - 02/13/2025) * * Electronic signature of Robert Argueta on 08/12/2025 at 02:06 PM REGIONAL FACILITIES MANAGER Sign off status: Pending * Provider: Kaylee Argueta APN Date: 0 02/13/2025 Generated for Cintia osman/Migdalia/eTransmitting on: 1 10/12/2024 02:06 PM REGIONAL FACILITIES MANAGER
[2025-08-12 13:03] LABS: Beta HCG Quantitative 7.49 mIU/ML
--- OUTSIDE RECORDS SUMMARY | 2025-08-12 14:06 | XMS_ITS | Data Portability ---
Author Organization [place] - [facility] [place] [place] Address [address] [place] [address] [place] [address] Assessment Encounter Date Assessment Date Assessment LastModified by Organization Details LastModified Time 09/24/2024 09/24/2024 Annual gynecological exam performed. Patient will come back in a year unless there are new symptoms. [email or web address] Not available 09/24/2024 14:30:00 Plan of Treatment Reminders Order Date Submit Date Provider Last Modified By Organization Details Last Modified Time Details Appointments U/S OB SNEAK PEAK 2024 03:30P M ULTRASOUND Not available Not available Not available OB SCREEN 2024 01:30P M Aniyah Arriola CNM Not available Not available Not available Lab unliste d lab - women's health swab plus, KEYANNA 2024 025 [facility] (Lab), [address], [place], [address], 05/26/2025 18:32:22 Referral None recorde d. Procedures None recorde d. Surgeries None recorde d. Imaging US, transva ginal 2023 024 [email or web address] [place], [address], [place], [address], 04/16/2024 21:31:43 Medication Orders flucona zole 150 mg tablet 2024 025 [facility] #[id number], [address], [place], [address], 05/23/2025 12:54:30 metroni dazole 500 mg tablet 2024 025 [id number], [address], [place], [address], 06/06/2025 05:01:50 nystati n 100,000 unit/gr am topical ointmen t 2024 025 [id number], [address], [place], [address], 05/23/2025 12:55:20 triamci nolone acetoni de 0.1 % topical ointmen t 2024 025 [id number], [address], [place], [address], 05/23/2025 12:55:20 fluoxet ine 20 mg tablet 2023 025 [id number], [address], [place], [address], 05/23/2025 12:43:20 Patient TargetsNo targets recorded. Patient InstructionsNo instructions recorded. Reason for Referral None Reported. Results Created Date Observation Date Name Description Value Unit Range Abnormal Flag Note LastModifiedBy Organization Detail LastModifiedTime 09/24/2009/24/2024 [facility], KEYANNA bacterial vaginosis (bv), tma Negati ve negati ve Not Available [facility] (Lab) [address] [place], [address], 09/25/2024 13:52:03 09/24/20 24 09/24/2024 [facility] KEYANNA soriada species, tma Negati ve negati ve Not Available [facility] (Lab) [address] [place], [address], 09/25/2024 13:52:03 09/24/20 24 09/24/2024 [facility], KEYANNA soraida glabrata, tma Negati ve negati ve Not Available [facility] (Lab) [address] [facility], [place], [address], 09/25/2024 13:52:03 09/24/20 24 09/24/2024 [facility], KEYANNA trichomonas vaginalis, tma Negati ve negati ve Not Available [facility] (Lab) [address] [facility], [place], [address], 09/25/2024 13:52:03 09/24/20 24 09/24/2024 [facility], KEYANNA chlamydia trachomatis, PCR Negati ve negati ve Not Available [facility] (Lab) [address] [facility], [place], [address], 09/25/2024 13:52:03 09/24/20 24 09/24/2024 WOMEN 'S [...] ded in this panel . Not Available [facility] (Lab) [address] [place], [address], 09/25/2024 13:52:03 05/23/20 25 05/23/2025 [facility], KEYANNA bacterial vaginosis (bv), tma Negati ve negati ve Not Available [facility] (Lab) [address] [place], [address], 05/26/2025 18:32:22 05/23/20 25 05/23/2025 [facility]AB [facility], KEYANNA soraida species, tma Negati ve negati ve Not Available [facility] (Lab) [address] [facility], [place], [address], 05/26/2025 18:32:22 05/23/20 25 05/23/2025 [facility], KEYANNA soraida glabrata, tma Negati ve negati ve Not Available [facility] (Lab) [address] [facility], [place], [address], 05/26/2025 18:32:22 05/23/20 25 05/23/2025 [facility], KEYANNA trichomonas vaginalis, tma Negati ve negati ve Not Available [facility] (Lab) [address] [place], [address], 05/26/2025 18:32:22 05/23/20 25 05/23/2025 [facility], KEYANNA chlamydia trachomatis, PCR Negati ve negati ve Not Available [facility] (Lab) [address] [place], [address], 05/26/2025 18:32:22 05/23/20 25 05/23/2025 [facility], KEYANNA [...] ded in this panel . Not Available [facility] (Lab) [address], [place], [address], 05/26/2025 18:32:22 04/16/20 24 04/16/2024 , trans vagin al No observ ation record ed. [email or web address] [place] [address], [place], [address], 04/16/2024 18:08:44 04/16/20 24 04/16/2024 , trans vagin al No observ ation record ed. [email or web address] [address], [place], [address], 04/16/2024 22:44:33 Result Notes None recorded. Problems Name Problem SNOMED Code Status Onset Date Resolution Date Notes Provider Name and Address Organization Details Recorded Time History of SARS-CoV -2 5434171335 [id number] Completed at 5-6w. on ASA. no growth needed since no placenta at time of infectio nCynthia olson, [facility] 2 15:28:50 Polycyst ic ovary syndrome 160708492 Active 2021 Chiquita Mcneil MD [address], [place], [address], [facility] 2 16:35:16 Asmita martinez user 862230432 Active 2021 Chiquita Mcneil MD [address], [place], [address], [facility] 2 16:35:29 Pregnanc y 00728323 Completed 202105/27/2022 Viji olson, [facility] 2 15:28:57 Problem Notes None recorded. Procedures Surgical History Date Name Laterality Status Provider Name and Address Organization Details Recorded Time 04/21/20 23 Date of Last Pap Smear completed [facility] 04/21/2023 16:40:20 07/28/20 19 completed [facility] 01/04/2022 12:16:59 10/09/19 19 Date of Last Colonoscopy completed [facility] 01/04/2022 12:18:17 10/09/19 19 Colonoscopy completed [facility] 01/04/2022 12:18:40 10/09/19 18 colonoscopy completed Norah Reilly [facility] 10/19/2021 16:03:12 Imaging Results None recorded. Procedure Notes None recorded. Medical Equipment None Reported. Allergies No known drug allergies Medications Name Sig Start Date Stop Date Status Note LastModified by Organization Details LastModified Time fluoxetine 40 mg capsule TAKE 1 CAPSULE BY MOUTH EVERY DAY active Not Available Not Available No t Available cyclobenzap rine 10 mg tablet TAKE 1 TABLET BY MOUTH THREE TIMES DAILY NEEDED FOR MUSCLE SPASM 06/01 completed Not Available Not Available Not Available prednisone 10 mg tablet 10/19 completed Not Available Not Available Not Available nystatin 100,000 unit/gram topical ointment APPLY TO AFFECTED AREA TWICE A DAY FOR 7 DAYS active Not Available Not Available No t Available fluconazole 150 mg tablet TAKE 1 TABLET BY MOUTH NOW, REPEAT IN 7 DAYS IF NEEDED active Not Available Not Available No t Available famotidine 40 mg tablet 04/10 completed Not Available Not Available Not Available prednisone 20 mg tablet 06/01 completed Not Available Not Available Not Available propranolol ER 60 mg capsule,24 hr,extended release TAKE 1 CAPSULE BY MOUTH EVERY DAY active Not Available Not Available No t Available metronidazo le 500 mg tablet Take 1 tablet every 12 hours by oral route for 7 days. 06/06 completed Not Available Not Available Not Available hydroxyzine HCl 50 mg tablet TAKE 1/2-2 TABLETS BY MOUTH ONCE NIGHTLY AT BEDTIME NEEDED FOR SLEEP active Not Available Not Available No t Available triamcinolo ne acetonide 0.1 % topical cream APPLY THIN COAT TO AFFECTED AREA TWICE A DAY 09/24 completed Not Available Not Available Not Available amoxicillin 500 mg tablet TAKE 1 TABLET BY MOUTH TWICE DAILY 10/19 completed Not Available Not Available Not Available oxycodone-a cetaminophe n 5 mg-325 mg tablet TAKE 1 TABLET BY MOUTH EVERY 6 HOURS NEEDED FOR PAIN 05/23 completed Not Available Not Available Not Available propranolol 10 mg tablet TAKE 1 TABLET BY MOUTH EVERY 12 HOURS FOR 30 DAYS 05/23 completed Not Available Not Available Not Available cyanocobala min (vit B-12) 500 mcg tablet TAKE 1 TABLET BY MOUTH EVERY DAY 04/21 completed Not Available Not Available Not Available dicyclomine 20 mg tablet TAKE 1 TABLET BY MOUTH FOUR TIMES DAILY FOR 7 DAYS NEEDED FOR ABDOMINAL PAIN OR CRAMPING 05/23 completed Not Available Not Available Not Available fluoxetine 20 mg tablet TAKE 1 TABLET BY MOUTH EVERY DAY 05/23 completed Not Available Not Available Not Available triamcinolo ne acetonide 0.1 % topical ointment APPLY TO AFFECTED AREA TWICE A DAY FOR 7 DAYS active Not Available Not Available No [...] TO 3 TIMES DAILY NEEDED FOR ANXIETY 05/23 completed Not Available Not Available Not Available ondansetron 4 mg disintegrat ing tablet TAKE 1 TABLET BY MOUTH EVERY 8 HOURS NEEDED FOR NAUSEA/VO MITING 05/23 completed Not Available Not Available Not Available fluoxetine 20 mg capsule TAKE 1 CAPSULE (20MG) BY MOUTH ONCE DAILY FOR 14 DAYS, THEN INCREASE TO 2 CAPS (40MG) ONCE DAILY 05/23 completed Not Available Not Available Not Available amoxicillin 875 mg-potassiu m clavulanate 125 mg tablet TAKE 1 TABLET BY MOUTH EVERY 12 HOURS FOR 5 DAYS 05/23 completed Not Available Not Available Not Available 06/01 completed Not Available Not Available Not Available Baby Aspirin 06/01 completed Not Available Not Available Not Available duloxetine 40 mg capsule,del ayed release TAKE 1 CAPSULE BY MOUTH EVERY DAY active Not Available Not Available No t Available ID NOW COVID-19 Test Kit DIRECTED 10/19 completed Not Available Not Available Not Available COVID-19 test specimen collection TEST DIRECTED TODAY 10/19 completed Not Available Not Available Not Available Vitals Date Recorded Body height Body mass index (BMI) Body weight Systolic And Diastolic Provider Name and Address Organization Details Last Updated DateTime 04/10/2024 160.02 cm 31.7 kg/m2 59675.75 g 131/77 mm[Hg] [facility] 04/10/2024 12:16:57 Date Recorded Body height Body mass index (BMI) Body weight Systolic And Diastolic Provider Name and Address Organization Details Last Updated DateTime 05/01/2024 160.02 cm 32.5 kg/m2 50907.56 g 105/69 mm[Hg] [facility] 05/01/2024 16:40:29 Date Recorded Body height Body mass index (BMI) Body weight Systolic And Diastolic Provider Name and Address Organization Details Last Updated DateTime 05/23/2025 160.02 cm 35.1 kg/m2 76639.29 g 115/74 mm[Hg] Danika Shanks [facility] 05/23/2025 12:42:57 Date Recorded Body height Body mass index (BMI) Body weight Systolic And Diastolic Provider Name and Address Organization Details Last Updated DateTime 09/24/2024 160.02 cm 32.4 kg/m2 14375.4 g 117/74 mm[Hg] Sharonda Velasquez [facility] 09/24/2024 14:32:46 Social History Question Answer Notes LastModified by Organizat ion Details LastModified Time Tobacco Smoking Status Never Smoker Alina olson, [facility] 01/04/2022 12:17:00 Do You Have An Advance Directive? No [email or web address] Information n ot available 01/04/2022 Are You Blind Or Do You Have Difficulty Seeing? No [email or web address] Information n ot available 01/04/2022 What Is Your Level Of Caffeine Consumption? None [email or web address] Information not available 01/04/2022 How Much Tobacco Do You Chew? None Information not available 01/04/2022 In The 14 Days Before Symptom Onset, Have You Had Close Contact With A Laboratory-confirm ed COVID-19 While That Case Was Ill? No [email or web address] Information n ot available 01/04/2022 In The 14 Days Before Symptom Onset, Have You Had Close Contact With A Person Who Is Under Investigation For COVID-19 While That Person Was Ill? No [email or web address] Information not available 01/04/2022 Have You Been To An Area Known To Be High Risk For COVID-19? No [email or web address] Information not available 01/04/2022 Are You Deaf Or Do You Have Serious Difficulty Hearing? No [email or web address] Information not available 01/04/2022 What Type Of Diet Are You Following? REGULAR [email or web address] Information n ot available 01/04/2022 What Is The Highest Grade Or Level Of School You Have Completed Or The Highest Degree You Have Received? LR53045-7 [email or web address] Information not available 01/04/2022 Are There Any Guns Present In Your Home? No [email or web address] Information not available 01/04/2022 Do You Use Protection During Sex? No [email or web address] Information not available 01/04/2022 Do You Use Your Seat Belt Or Car Seat Routinely? Yes [email or web address] Information not available 01/04/2022 Do You Have Smoke And Carbon Monoxide Detectors In Your Home? Yes [email or web address] Information not available 01/04/2022 How Much Tobacco Do You Smoke? No [email or web address] Information not available 01/04/2022 Do You Use Sunscreen Routinely? Yes Information not available 01/04/2022 Has Tobacco Cessation Counseling Been Provided? No [email or web address] Information not available 01/04/2022 Have You Used IV Drugs? No [email or web address] Information not available 01/04/2022 Do You Have Difficulty Walking Or Climbing Stairs? No [email or web address] Information not available 01/04/2022 Sex: Unknown Functional Status Question Answer Note LastModified by Organizat ion Details LastModified Time Do you use any illicit or recreational drugs? Yes [email or web address] Information not available 01/04/2022 Do you or have you ever used any other forms of tobacco or nicotine? No Information not available 01/04/2022 What is your level of alcohol consumption? None [email or web address] Information not available 10/19/2021 Are you able to walk independently without assistance or assistive devices? YESWOREST [email or web address] Information not available 01/04/2022 Are you able to care for yourself independently? 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 No [email or web address] Information not available 01/04/2022 What is your exercise level? Occasional Information not available 01/04/2022 Mental Status Question Answer Note LastModified by Organization D etails LastModified Time Do you feel stressed (tense, restless, nervous, or anxious, or unable to sleep at night)? [id number] [email or web address] Information not available 01/04/2022 Family History Relationship Description Onset Age of this Age Resolved Age Notes LastModified by Organization Details LastModified Time Unspecified Relation Family history unknown [email or web address] Not available 01/04 12:16:59 Medical History Condition Response Allergies (Food, seasonal, environmental ) N Other N Breast Cancer N Drug/Latex Allergies/Reactions N Blood Transfusion N Dermatologic Disorders N Lung Disease Y Defects or Inherited Disease N Breast Problem N Gestational Diabetes N Hematologic disorders N Anesthesia Complications N History of STI N Deep Vein Thrombosis N Polycystic ovary syndrome Y Anxiety Disorder Y Autoimmune disease N Arthritis N Infertility N [...] History Statement/Question Response Date of Last Mammogram Flow Moderate Date of LMP 05/06/2025 N On BCP's at Conception? N STIs/STDs N Was last menstrual period normal Y HPV Vaccine N Duration of Flow (days) 5 Current Control Method None Are cycles usually normal Y Date of Last Colonoscopy 10/09/2018 Frequency of Cycle (Q days) 28 Most Recent Bone Density Sexually Active? Y [...] Diagnosis SNOMED-CT Code Diagnosis ICD10 Code Diagnosis IMO Codes Diagnosis Note [id number] Chiquita Mcneil MD [place] [address] [address] 10/19/2021 15:51:07 10/19/2021 17:58:07 Urine test positive 116780887 Z32.01 Polycystic ovary syndrome 165835704 E28.2 Body mass index 30+ - obesity 627390807 Z68.37 Marijuana user 105977147 F12.90 Nausea and vomiting 1693 2000 R11.2 [id number] Chiquita Mcneil MD [place] [address] [address] 10/19/2021 16:19:05 10/19/2021 16:56:09 [id number] Chiquita Mcneil MD [place] [address],[place] [address] 11/09/2021 15:26:18 11/09/2021 16:08:49 screening 849479089 Z36.82 [id number] Chiquita Mcneil MD [place] [address] [address] 11/09/2021 15:26:37 11/10/2021 11:28:28 Routine care 824220546 Z34.91 History of SARS-CoV-2 29 08765934 42955988 Z86.16 [id number] [facility] [address],[place] [address] 12/06/2021 17:36:19 12/06/2021 18:04:26 Routine care 447022510 Z34.92 [id number] [facility] [address],[place] [address] 01/04/2022 11:52:18 01/13/2022 16:35:22 Routine care 885258137 Z34.92 [id number] Albert Jason MD [place] [address],[place] [address] 01/04/2022 11:53:03 01/04/2022 17:50:01 screening for malformation 995587927 Z36.3 [id number] [facility] [address] [address] 02/02/2022 14:59:51 02/02/2022 16:41:21 Routine care 462029609 Z34.92 [id number] Albert Jason MD [place] [address],[place] [address] 02/02/2022 14:59:36 02/02/2022 15:56:15 screening 762470504 Z36.2 [id number] Albert Jason MD [place] [address],[place] [address] 03/02/2022 11:25:38 03/02/2022 12:15:17 Pre-existing maternal disease complicating 1417780875 6106 O99.891 U07.1 Z86.16 Z3A.28 [id number] Aniyah Arroila [facility] [address],[place] [address] 03/02/2022 11:26:04 03/02/2022 12:37:51 Routine care 693970975 Z34.92 [id number] Sheryl Calixto [facility] [address],[place] [address] 03/15/2022 11:56:21 03/16/2022 17:37:47 [id number] Chiquita Mcneil MD [place] [address],[place] [address] 03/30/2022 15:58:20 04/01/2022 11:45:55 Routine care 620664957 Z34.91 [id number] Chiquita Mcneil MD [place] [address],[place] [address] 03/30/2022 15:58:41 03/30/2022 16:41:31 Maternal obesity complicating , childbirth and the puerperium, antepartum 6455768959 07 O99.213 O99.891 U07.1 Z86.16 Z3A.32 [id number] Aniyah Arriola [facility] [address],[place] [address] 04/12/2022 09:38:02 04/12/2022 12:38:48 Routine care 717517469 Z34.92 [id number] Albert Jason MD [place] [address],[place] [address] 04/14/2022 16:59:00 04/14/2022 17:36:11 [id number] Chiquita Mcneil MD [place] [address],[place] [address] 04/27/2022 13:49:53 04/27/2022 14:49:36 COVID-19 765744413 U07.1 [id number] Aniyah Arriola [facility] [address],[place] [address] 04/27/2022 14:23:14 04/27/2022 15:00:06 Routine care 928045024 Z34.92 [id number] [facility] [address],[place] [address] 06/01/2022 09:25:30 06/01/2022 09:47:03 care 328660666 Z39.0 [id number] [facility] [address],[place] [address] 07/27/2022 16:42:08 07/27/2022 17:18:53 Anxiety 11087065 F41.9 reviewed options, list of counselors given, reviewed se risks of benefits of daily meds, vs hydroxyzin e, pt would like to start out with that, f/u 4 weeks or sooner if neededto ED if any suicidal ideations [id number] Aniyah Arriola CNM [place] [address] [place] [address] 08/26/2022 16:00:29 08/26/2022 16:47:03 Mixed anxiety and depressive disorder 515411045 F41.8 [id number] Aniyah Arriola CNM [place] [address] [place] [address] 10/26/2022 16:10:21 10/26/2022 17:36:16 Mixed anxiety and depressive disorder 618323975 F41.8 may have refill of hydroxyzin e if needed Palpitations 71202503 R0 0.2 order holter monitor [id number] Aniyah Arriola [facility] [address],[place] [address] 01/18/2023 16:46:17 01/18/2023 18:19:10 Anxiety 51319135 F41.9 reviewed options, list of counselors given, reviewed se risks of benefits of buspar, will let cardiologi st know, any suicidal thoughts to ED f/u wwe and med check as scheduled. call with any rec from cardiology [id number] Aniyah Arriola [facility] [address],[place] [address] 02/10/2023 15:23:27 02/10/2023 16:14:37 Anxiety 10215394 F41.9 reviewed options, list of counselors given, reviewed se risks of benefits of Hydroxyzin e, mental and physical health both important, will refer to cardiology for 2nd opinion, any suicidal thoughts to ED f/u wwe and med check as scheduled. [id number] [facility] [address],[place] [address] 03/21/2023 09:54:56 03/21/2023 10:51:42 Pain in pelvis 21740081 R10.2 Today we agreed to update an [...] counseling and review of plan of care. [id number] Albert Jason MD [facility] [address],[place] [address] 03/23/2023 17:31:35 03/23/2023 17:54:03 Pain in pelvis 51369790 R10.2 [id number] Aniyah Arriola CNM [facility] [address],[place] [address] 04/21/2023 16:26:21 04/21/2023 16:55:41 Gynecologic examination 72832369 Z01.419 Anxiety 65961808 F41.9 doing well f/u 6 mo [id number] LUIS WEIR MD [facility] [address],[place] [address] 04/10/2024 12:03:05 04/10/2024 14:23:28 Pain in pelvis 75329788 R10.2 - similar episode to 03/2023, had hemorrhagi c cyst at that time- right sided pelvic pain for 4 days prior to period, now improved but still present- s/p miscarriag e 02/2024- will order pelvic US to r/o ovarian cyst [id number] Albert Jason MD [facility] [address],[place] [address] 04/16/2024 17:30:56 04/16/2024 18:05:13 Cyst of right ovary 4431771460 3982935 N83.291 [id number] LUIS WEIR MD [facility] [address],[place] [address] 05/01/2024 16:27:41 05/02/2024 09:24:50 Pain in pelvis 03957923 R10.2 - similar episode to 03/2023, had hemorrhagi c cyst at that time- pelvic US overall unremarkab le, R hemorrhagi c cyst has resolved- pain likely due to ovulation pain- discussed suppressio n with combined hormonal contracept ion vs expectant management - patient desires expectant management at this time- rtc for WWE [id number] LUIS WEIR MD [facility] [address],[place] [address] 09/24/2024 14:18:19 09/24/2024 15:02:31 Anxiety 97931480 F41.9 - patient rep Mixed anxi ety and depressive disorder 114836449 F41.8 - patient reports worsening anxiety and depressive symptoms since stopping fluoxetine (lost PCP access)- will restart fluoxetine - no SI/HI- encouraged patient to find new PCP to continue management Gynecologi c examination 33857180 Z01.419 [facility] woman care- Cervical cancer screening: Pap smear not indicated (next 2025)- Breast cancer screening: mammogram not indicated- Colon cancer screening: does not qualify- HPV immunizati on: has not received- STD testing: declined- hereditary cancer screening: does not qualify for testing [id number] JAGRUTI Faith [facility] [address] [address] 05/23/2025 12:36:34 05/27/2025 10:57:48 Acute vaginitis 52093068 N76.0 09374 vaginitis/ STI screen sentvulvar care guidelines discussedr x sent for BV/yeast, r/b/a reviewed Time spent in visit is a total of 22 mins with at least 50% of visit consisting of counseling and review of plan of care. Venereal d isease screening 924987203 Z11.3 88533 Health Concerns Section Related Observation LastModified by Organization Detai ls LastModified Time None Recorded Concern Status LastModified by Organization Details LastModified Time None Recorded Advance Directives Directive N: Payers Insurance Date Sequence Insurance Name Policy Number Policy Foote Covered Member ID Foote Member ID Guarantor Name 05/27/2025 1 [facility] ON OR AFTER 04/08/21 (MEDICAID REPLACEMENT - HMO) Manjula Head [id number] Manjula Head 10/18/2021 1 [place] PRIOR TO 04/08/2021 (MEDICAID REPLACEMENT - HMO) Manjula Heda [id number] Manjula Head Notes Date Note Type Note Provider Name and Address Organization Details Recorded Time 04/10/2024 text/html Patient presents for evaluation of [...] gain. LUIS WEIR MD [address], [place], [address], [facility] 04/10/2024 13:59:23 05/01/2024 text/html Patient [...] period. LUIS WEIR MD [address], [place], [address], [facility] 05/01/2024 18:05:20 09/24/2024 text/html Presents today for her annual well-woman exam. Reports intermittently abnormal [...] fluoxetine. LUIS WEIR MD [address], [place], [address], [facility] 09/24/2024 15:02:22 05/23/2025 text/html Vaginal/Vulvar ProblemReported by Patient 25yopresents for vaginal d/c, odor, itching JAGRUTI Faith [address], [place], [address], [facility] 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 on ASA. no growth needed [...] Date Ultra Sound Latest Days Gestation 0 [email or web address] 11/09/2021 05/20/20 22 0 Pre-hansel Flowsheet Flowsheet Date 11/09/2021 Everett Score Blood Edema Fundus Height Fundus Units Glucose Ketones Leukocytes Nitrite Labor Signs Protein Cervic Dilation Cervic Effacement Cervic Station neg none none trace Type Weight in lbs Pre/Post Dialysis Refused Weight 213.926325321189 BP Diastolic BP Location Tested BP Systolic [...] Weight in lbs Pre/Post Dialysis Refused Weight 215.639392571498 BP Diastolic BP Location Tested BP Systolic [...] Weight in lbs Pre/Post Dialysis Refused Weight 215.179246292384 BP Diastolic BP Location Tested BP Systolic [...] Weight in lbs Pre/Post Dialysis Refused Weight 216.880108684834 BP Diastolic BP Location Tested BP Systolic BP Type 83 131 Fetus Heart Rate Present Fetus Movement A Yes Comments PATIENT IS HAVING SOME HIP P AIN, NAUSEA AND VOMITING. PATIENT STATES THAT HAVING ISSUES WITH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
--- OUTSIDE RECORDS SUMMARY | 2025-08-12 14:06 | XMS_ITS | Encounter Summary ---
Author Organization [facility] Address [address] [place] [address] Care Team Providers Care Busperson Name Role Phone Eunice Garcia MD Primary Care Provider [phone] Encounter Details Date Type Department Care Team (Late st Contact Info) Description 11/16/2018 Telephone [facility] - [address] [address] Alicia Alex MD [address] [place] [phone] Social History Tobacco Use Types Packs/Day Years Used Date Smoking Tobacco: Passive Smo ke Exposure - Never Smoker Smokeless Tobacco: Never Comments:Parents smoke outsi de Alcohol Use Standard Drinks/Week Comments No 0 (1 standard drink = 0.6 oz pur e alcohol) Comments No Sex and Gender Information Value Date Recorded Sex Assigned at Not on file Legal Sex Female 9:56 AM CERTIFIED OPTICIAN Gender Identity Not on file Sexual Orientation Not on file documented as of this encounter Miscellaneous Notes * Telephone Encounter - Siobhan Bloom - 11/19/2018 11:51 AM CST Spoke with mom informed of message below IFIED OPTICIAN * Telephone Encounter - Aga Mckeon RN - 11/19/2018 11:40 AM CST LM for mom to call office to let her know the prescription has been sent. IFIED OPTICIAN * Telephone Encounter - Alicia Alex MD - 11/19/2018 11:31 AM CERTIFIED OPTICIAN EKG overall normal. I sent the prescription for Elavil that we discussed. IFIED OPTICIAN * Telephone Encounter - Aga Mckeon RN - 11/19/2018 10:29 AM CST Received EKG. Placed in Dr. Alex's mailbox. IFIED OPTICIAN * Telephone Encounter - Tammy Connell RN - 11/19/2018 8:45 AM CERTIFIED OPTICIAN Spoke with Ricky Fair had EKG done @ [facility] in [place]. Newell will fax results to our office to be reviewed. IFIED OPTICIAN * Telephone Encounter - Siobhan Bloom - 11/16/2018 3:14 PM CST Patient LM wants to know if our office received EKG results. IFIED OPTICIAN documented in this encounter Plan of Treatment Not on file documented as of this encounter Goals Goal Patient Goal Type Associated Problems Recent Progress Patient-Stated? Author Exercise 3X per week (30 min per time) Exercise On track( 018 9:23 AM CERTIFIED OPTICIAN) No Shannan Ochoa RN Use safety retraint in car Lifestyle On track( 020 11:17 AM CDT) No Shannan Ochoa RN documented as of this encounter Visit Diagnoses Not on filedocumented in this encounter Care Teams Busperson Relationship Specialty Start Date End Date Eunice Garcia MD PCP - General 01/05/12 documented as of this encounter
--- OUTSIDE RECORDS SUMMARY | 2025-08-12 14:06 | XMS_ITS | Patient Health Record ---
Author Organization [facility] Address [address] [place] [address] Care Team Providers Care Pump Servicer Name Role Phone Laura Iniguez Primary Care Provider ArguetaRobert Unavailable [phone] Allergies No Known Allergies Results Component Value Reference Range Notes Hemoglobin A1c* Reviewed date:01/14/2025 11:09:22 AM Interpretation: Performing Lab:[facility], [address] [facility], Phone - [phone], Director - [facility] Notes/Report: Hemoglobin A1c 5.0 4.8-5.6 % . Prediabetes: 5.7 - 6.4 Diabetes: >6.4 Glycemic control for adults with diabetes: <7.0 Vitamin B12* Reviewed date:01/14/2025 11:08:43 AM Interpretation: Performing Lab:[facility], [address] [facility], Phone - [phone], Director - [facility] Notes/Report: Vitamin B12 101 160-6515 pg/mL Nadege Ellington CMP14 Default A hand-written panel/profile was received from your office. In accordance with the [facility] Ambiguous Test Code Policy dated April 2003, we have completed your order by using the closest currently or formerly recognized AMA panel. We have assigned Comprehensive Metabolic Panel (14), Test Code #795532 to this request. If this is not the testing you wished to receive on this specimen, please contact [facility] Client Inquiry/Technical Services Department to clarify the test order. We appreciate your business. Folate (Folic Acid), Serum* Reviewed date:01/14/2025 11:09:29 AM Interpretation: Performing Lab:[facility], [address] [facility], Phone - [phone], Director - [facility] Notes/Report: Folate (Folic Acid), Serum 4.8 >3.0 ng/mL A serum folate concentration of less than 3.1 ng/mL is considered to represent clinical deficiency. Vitamin D, 25-Hydroxy* Reviewed date:01/14/2025 11:08:33 AM Interpretation: Performing [facility] [address] [place] [address], Phone - [phone], Director - [facility] Notes/Report: Vitamin D, 25-Hydroxy 11.3 30.0-100.0 ng/mL Vitamin D deficiency has been defined by the [place] of [employer] and an Endocrine Society practice guideline as a level of serum 25-OH vitamin D less than 20 ng/mL (1,2). The Endocrine Society went on to further define vitamin D insufficiency as a level between 21 and 29 ng/mL (2). 1. IOM ([place] [employer]). 2010. Dietary reference intakes for calcium and D. [place]: The National Academies Press. 2. Alexander MF, Madina MISHRA, Ines YIN, et al. Evaluation, treatment, and prevention of vitamin D deficiency: an Endocrine Society clinical practice guideline. JCEM. 2010; 96(7):1911-30. TSH+Free T4* Reviewed date:01/14/2025 11:08:51 AM Interpretation: Performing Lab:[email or web address] [place] [address] [place] [address], Phone - [phone], Director - [facility] Notes/Report: TSH 0.514 0.450-4.500 uIU/mL T4,Free(Direct) 1.16 0.82-1.77 ng/dL Lipid Panel* Reviewed date:01/14/2025 11:09:13 AM Interpretation: Performing Lab:[email or web address] [place] [address] [place] [address], Phone - [phone], Director - [facility] Notes/Report: Cholesterol, Total 189 100-199 mg/dL Triglycerides 128 0-149 mg/dL HDL Cholesterol 41 >39 mg/dL VLDL Cholesterol Claude 23 5-40 mg/dL LDL Chol Calc (NIH) 125 0-99 mg/dL CMP 14 Comprehensive Metabol ic Panel* Reviewed date:01/14/2025 11:09:46 AM Interpretation: Performing Lab:[email or web address] [place], [address] [facility], Phone - [phone], Director - [facility] Notes/Report: Glucose 75 70-99 mg/dL BUN 10 [...] 0-40 IU/L ALT (SGPT) 15 0-32 IU/L CBC/Diff Ambiguous Default Reviewed date:01/14/2025 11:08:20 AM Interpretation: Performing Lab:[email or web address] [place], [address] [facility], [place], Phone - [phone], Director - [facility] Notes/Report: WBC 11.7 3.4-10.8 x10E3/uL RBC 4.56 [...] from your office. In accordance with the [facility] Ambiguous Test Code Policy dated April 2003, we have assigned CBC with Differential/Platelet, Test Code #[id number] to this request. If this is not the testing you wished to receive on this specimen, please contact the [facility] Client Inquiry/ Technical Services Department to clarify the test order. We appreciate your business. Nadege Ellington LP Default Reviewed date:01/14/2025 11:07:06 AM Interpretation: Performing Lab:[address], Phone - [phone], Director - [facility] Notes/Report: Nadege Ellington LP Default A hand-written panel/profile was received from your office. In accordance with the [facility] Ambiguous Test Code Policy dated April 2003, we have completed your order by using the closest currently or formerly recognized AMA panel. We have assigned Lipid Panel, Test Code #721207 to this request. If this is not the testing you wished to receive on this specimen, please contact the [facility] Client Inquiry/Technical Services Department to clarify the test order. We appreciate your business. CBC With Differential/Platel et* Reviewed date:02/18/2025 04:34:10 PM Interpretation: Performing Lab:[facility], [address] [place] [address], Phone - [phone], Director - [facility] Notes/Report: WBC 8.9 3.4-10.8 x10E3/uL RBC 4.70 [...] as the collection date if not supplied. Reason For Referral No Information Medications Medication SIG (Take, Route, Frequency, Duration) Notes Start Date End Date Status DULoxetine HCl 40 MG TAKE 1 CAPSULE BY MOUTH EVERY DAY; Duration: 30 Active FLUoxetine HCl 40 MG 1 capsule once rebeca y Orally; Duration: 7 days Will wean. Take every other day x1 week then stop Active hydrOXYzine HCl Acti ve Ergocalciferol 1.25 MG (32541 UT) 1 capsule Orally once weekly; Duration: 30 days 01/15/2025 Active hydrOXYzine HCl 50 MG 0.5-2 tablets once nightly at bedtime as needed for sleep Orally Once a day; Duration: 30 days 02/07/2025 Active Propranolol HCl ER 60 MG 1 capsule Orall y Once a day; Duration: 30 days Active hydrOXYzine HCl 10 MG 1 tablet Orally up to 3 times daily; Duration: 30 days As needed for anxiety Active Social History Tobacco Use: Social History [...] Status Risk Notes Problem Vitamin D deficiency (82283571) Vitamin D deficiency (E55.9) Active confirmed Problem Generalized anxiety disorder (89429633) MARY (generalized anxiety disorder) (F41.1) Active confirmed Problem Inattention (24389871) Inattention (R41.840) Active confirmed Problem Overweight (361689471) Over weight (E66.3) Active confirmed Problem Major depressive disorder (452385993) MDD (major depressive disorder) (F32.9) Active confirmed Problem Leukocytosis (405211301) Leukocytosis (D72.829) Active confirmed Problem Neutrophilia (130866194) Neutrophilia (D72.9) Active confirmed Vital Signs Heart Rate 75 /min 02/07/2025 Blood pressure diastolic 74 mm Hg 02/07/2025 Oximetry 98 % 02/07/2025 Height 63 in 06/04/2025 Blood pressure systolic 114 mm Hg 02/07/2025 Weight 196 lbs 06/04/2025 BMI 34.72 kg/m2 06/04/2025 Encounters Encounter Location Date Provider Diagnosis [address] [address] 01/09/2025 Robert Argueta MARY (generalized anxiety disorder) F41.1 ; MDD (major depressive disorder) F32.9 ; Inattention R41.840 ; Over weight E66.3 ; Screening for thyroid disorder Z13.29 ; Screening for hyperlipidemia Z13.220 and Screening for diabetes mellitus Z13.[address] [address] 02/13/2025 Robert Argueta Leukocytosis D72.829 and Neutrophilia D72.[address] [address] 01/08/2025 Robert Argueta MARY (generalized anxiety disorder) F41.1 ; MDD (major depressive disorder) F32.9 ; Inattention R41.840 ; Over weight E66.3 ; Screening for thyroid disorder Z13.29 ; Screening for hyperlipidemia Z13.220 and Screening for diabetes mellitus Z13.[address] [address] 02/07/2025 Robert Argueta MARY (generalized anxiety disorder) F41.1 ; MDD (major depressive disorder) F32.9 ; Inattention R41.840 and Over weight E66.[address] [place] [address] 06/04/2025 Laura Iniguez Over weight E66.3 ; MDD (major depressive disorder) F32.9 ; MARY (generalized anxiety disorder) F41.1 and Inattention R41.[address] [address] 01/08/2025 Robert Argueta [address] [address] 01/14/2025 Robert Argueta Leukocytosis D72.829 ; Vitamin D deficiency E55.9 and Neutrophilia D72.9 [facility] [address] [place] [address] 05/29/2025 Laura Iniguez MARY (generalized anxiety disorder) F41.1 Assessments Encounter Date Diagnosis (ICD Code) Assessment [...] health CRISIS, please reach out to [phone] ([facility] Suicide and Crisis Lif[facility]), 911, go to the emergency department, or contact the [facility] Crisis Unit/Team. Follow up as scheduled in 4 weeks or sooner if necessary. Follow up with PCP and/or other specialists as advised. NEXT STEP: Consider increasing fluoxetine. Consider increasing propranolol. Consider other medication adjustments. Review labs. 01/08/2025 MDD (major depressive disorder) (ICD-10 - F32.9) See assessment and plan for MARY 01/09/2025 MARY (generalized anxiety disorder) (ICD-10 - F41.1) 01/14/2025 Vitamin D deficiency (ICD-10 - E55.9) [...] to the emergency department, or contact the [facility] Crisis Unit/Team. Follow up as scheduled in 4 weeks or sooner if necessary. Follow up with PCP and/or other specialists as advised. NEXT STEP: Consider increasing fluoxetine. Consider increasing propranolol. Consider other medication adjustments. Review labs. 02/07/2025 MDD (major depressive disorder) (ICD-10 - F32.9) See assessment and plan for MARY 02/13/2025 Leukocytosis (ICD-10 - D72.829) 05/29/2025 MARY (generalized anxiety disorder) (ICD-10 - F41.1) 06/04/2025 Over weight (ICD-10 - E66.3) 06/04/2025 MDD (major depressive disorder) (ICD-10 - F32.9) See assessment and plan for MARY 06/04/2025 MARY (generalized anxiety disorder) (ICD-10 - F41.1) 02/13/2025 Neutrophilia (ICD-10 - D72.9) 02/07/2025 Inattention (ICD-10 - R41.840) Duration (acute/chronic), [...] health CRISIS, please reach out to [phone] ([facility] Suicide and Crisis Lif[facility]), 911, go to the emergency department, or contact the [facility] Crisis Unit/Team. Follow up as scheduled in 4 weeks or sooner if necessary. Follow up with PCP and/or other specialists as advised. NEXT STEP: Consider medication adjustments for anxiety/depressio n as needed. Consider screening for ADHD and treating accordingly. Consider other medication adjustments. Review labs. 01/14/2025 Neutrophilia (ICD-10 - D72.9) 01/09/2025 MDD (major depressive disorder) (ICD-10 - F32.9) 01/08/2025 Inattention (ICD-10 - R41.840) Duration (acute/chronic), [...] to the emergency department, or contact the [facility] Crisis Unit/Team. Follow up as scheduled in 4 weeks or sooner if necessary. Follow up with PCP and/or other specialists as advised. NEXT STEP: Consider medication adjustments for anxiety/depressio n as needed. Consider screening for ADHD and treating accordingly. Consider other medication adjustments. Review labs. 01/08/2025 Over weight (ICD-10 - E66.3) 01/09/2025 Inattention (ICD-10 - R41.840) 02/07/2025 Over weight (ICD-10 - E66.3) 06/04/2025 Inattention (ICD-10 - R41.840) Duration (acute/chronic), stability [...] health CRISIS, please reach out to [phone] ([facility] Suicide and Crisis Lif[facility]), 911, go to the emergency department, or contact the [facility] Crisis Unit/Team. Follow up as scheduled in 4 weeks or sooner if necessary. Follow up with PCP and/or other specialists as advised. NEXT STEP: Consider medication adjustments for anxiety/depressio n as needed. Consider screening for ADHD and treating accordingly. Consider other medication adjustments. Review labs. 01/09/2025 Over weight (ICD-10 - E66.3) 01/08/2025 Screening for thyroid disorder (ICD-10 - Z13.29) 01/09/2025 Screening for thyroid disorder (ICD-10 - Z13.29) 01/08/2025 Screening for hyperlipidemia (ICD-10 - Z13.220) 01/08/2025 Screening for diabetes mellitus (ICD-10 - Z13.1) 01/09/2025 Screening for hyperlipidemia (ICD-10 - Z13.220) 01/09/2025 Screening for diabetes mellitus (ICD-10 - Z13.1) Plan Of Treatment No Information Insurance Providers Payer Name Payer Address Payer Phone Subscriber Number Group Number Insured Name Patient Relationship to Insured Coverage Start Date Coverage End Date [employer] [facility] Attn Claims Department [address] [place] [address] [phone] [id number] Manjula Head Self - patient is the insured 5 [employer] Attn Claims Department [address] [place] [address] [phone] [id number] Manjula Head Self - patient is the insured 5 Medical (General) History Medical History History ICD Code anxiety depression pcos
--- OUTSIDE RECORDS SUMMARY | 2025-08-12 14:06 | XMS_ITS | Clinical Summary ---
Author Organization [facility] Address [address] [place] [address] Care Team Providers Care Car Unloader Name Role Phone Eunice Garcia MD Primary Care Provider [phone] Source Comments [facility],non-owned Affiliates and Associated Physician Practices is amultiple site organization consisting of ambulatory clinics and hospital sitesin [place], [place], [place] and [place]. This disclosure is being madepursuant to the Care Everywhere program and may not contain all information available regarding this patient. Last updated 18.[facility] Allergies No known active allergies Medications * [...] 11/06/2017 Overview (11/06/2017): Aug 30, 2017 - [facility] ([facility]), [address] [place] [address] ([facility]) Insulin 221 uIU/mL (2.6-24.9), prolactin 37.6 ng/mL (4.8-23.3), total testosterone 28.5 ng/dL (20-38, Terence V, age: 11.8-18.6), free testosterone 7.1 pg/mL (ref range not given), fasting glucose 87 mg/dL, (1 hr) 93 mg/dL, (2 hr) 104 mg/dL, TSH 0.788 uIU/mL (0.45-4.5), free T4 (direct) 1.17 ng/dL (0.93-1.60), Assessment & Plan (11/06/2017 3:36 PM OPERATIONS ARCHITECT): Mildly elevated serum prolactin level; cause uncertain (? Medication effect, OCP) 1. Repeat serum (fasting) prolactin level) 2. Obtain prior laboratory results from [facility] 3. Review medication/prolactin effects 4. Return appointment in four months. 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 016 Joint pain 08/06/2015 BMI (body mass index), pediatric, 95-99% for age 0906/25/2015 Vitamin D deficiency 05/17/2012 Resolved Problems Problem Noted Date Diagnosed Date Resolved Date High risk medication use 11/19/2015 Routine infant or child health check 06/17/2013 06/25/2015 Knee [...] on file Legal Sex Female 9:56 AM OPERATIONS ARCHITECT Gender Identity Not on file Sexual Orientation Not on file Last Filed Vital Signs Vital Sign Reading Time Taken Comments Blood Pressure 124/76 09/09/2019 12:37 PM OPERATIONS ARCHITECT Pulse 84 09/09/2019 12:37 PM OPERATIONS ARCHITECT Temperature 37.1 C (98.7 F) 01/01/2020 11:17 AM CDT Respiratory Rate 20 09/09/2019 12:37 PM OPERATIONS ARCHITECT Oxygen Saturation 99% 09/20/2018 2:20 PM OPERATIONS ARCHITECT Inhaled Oxygen Concentration - - Weight 107.5 kg (237 lb) 01/01/2020 11:17 AM CDT Height 159.6 cm (5' 2.84) 09/09/2019 12:[address] Body Mass Index 42.2 09/09/2019 12:37 PM OPERATIONS ARCHITECT Plan of Treatment Health Maintenance Due Date Last Done Comments HIV SCREENING 2016 HEPATITIS C SCREENING 02/28/2019 CHLAMYDIA/GONORRHEA SCREENING 06/15/2019 06/15/2018, 11/01/2017 (Done Outside Per Report), 11/01/2017 PAP SMEAR 2022 DTAP/TDAP/TD VACCINES (7 - Td or Tdap) 05/17/2022 05/17/2012, 04/21/2006, 07/18/2002, Additional history exists DEPRESSION SCREENING 10/09/2024 COVID-19 VACCINE ( season) 2025 INFLUENZA VACCINE (#1) 2025 09/28/2012 ZOSTER VACCINE (1 of 2) [...] time) Exercise On track( 018 9:23 AM OPERATIONS ARCHITECT) No Shannan Ochoa, KATJA Use safety retraint in car Lifestyle On track( 020 11:17 AM CDT) No Shannan Ochoa RN Procedures Procedure Name Priority Date/Time Associated Diagnosis Comments [...] CDT 06/15/2018 Narrative Resulting Agency Comment [facility] [address] [id number] Eunice Garcia MD LAB - MICROBIOLOGY ORDERABLES Final Result [facility] INSURANCE BILL [address] [place] [id number] from Last 3 Months or Most Recently Relevant to Health Maintenance Insurance [facility] Care Teams Car Unloader Relationship Specialty Start Date End Date Eunice Garcia MD PCP - General 01/05/12
== END 2025-08-12 12:01 | disposition home or self-care (01) ==
PROVIDERS: Visit Provider Advanced Practice Midwife
DX: O20.0 Threatened abortion (principal); Z3A.00 Weeks of gestation of pregnancy not specified
CPT/HCPCS: 36415; 84702

== ENCOUNTER 2025-08-14 15:17 | Outpatient (CLI) | payer OTHER, SELFPAY ==
--- OUTSIDE RECORDS SUMMARY | 2025-01-09 07:20 | XMS_ITS ---
Author Organization [facility] Address [address] [place] [address] Care Team Providers Care Neurodiagnostic Tech Name Role Phone Laura Iniguez Primary Care Provider Argueta, Robert Unavailable [phone] Results Component Value Reference Range Notes CMP 14 Comprehensive Metabol ic Panel* Reviewed date:01/14/2025 11:09:46 AM Interpretation: Performing Lab:[facility], [address], Phone - [phone], Director - [facility] Notes/Report: Glucose 75 70-99 mg/dL BUN [...] Panel* Reviewed date:01/14/2025 11:09:13 AM Interpretation: Performing Lab:[facility], [address], [place], Phone - [phone], Director - [facility] Notes/Report: Cholesterol, Total 189 100-199 mg/dL Triglycerides 128 0-149 mg/dL HDL Cholesterol 41 >39 mg/dL VLDL Cholesterol Claude 23 5-40 mg/dL LDL Chol Calc (NIH) 125 0-99 mg/dL TSH+Free T4* Reviewed date:01/14/2025 11:08:51 AM Interpretation: Performing Lab:[facility] [place] [address], Phone - [phone], Director - [facility] Notes/Report: TSH 0.514 0.450-4.500 uIU/mL T4,Free(Direct) 1.16 0.82-1.77 ng/dL Vitamin D, 25-Hydroxy* Reviewed date:01/14/2025 11:08:33 AM Interpretation: Performing Lab:[facility] [address] [place] [address], Phone - [phone], Director - [facility] Notes/Report: Vitamin D, 25-Hydroxy 11.3 30.0-100.0 ng/mL Vitamin D deficiency has been defined by the [place] of Medicine and an Endocrine Society practice guideline as a level of serum 25-OH vitamin D less than 20 ng/mL (1,2). The Endocrine Society went on to further define vitamin D insufficiency as a level between 21 and 29 ng/mL (2). 1. IOM ([place] of Medicine). 2010. Dietary reference intakes for calcium and D. [place]: The National Academies Press. 2. Alexander MF, Madina [place], Ines YIN, et al. Evaluation, treatment, and prevention of vitamin D deficiency: an Endocrine Society clinical practice guideline. JCEM. 2010; 96(7):1911-30. Folate (Folic Acid), Serum* Reviewed date:01/14/2025 11:09:29 AM Interpretation: Performing Lab:[facility] [address] [facility], Phone - [phone], Director - [facility] Notes/Report: Folate (Folic Acid), Serum 4.8 >3.0 ng/mL A serum folate concentration of less than 3.1 ng/mL is considered to represent clinical deficiency. Vitamin B12* Reviewed date:01/14/2025 11:08:43 AM Interpretation: Performing Lab:[facility], [address] [facility], Phone - [phone], Director - [place] Notes/Report: Vitamin B12 663 289-4142 pg/mL Nadege Ellington CMP14 Default A hand-written panel/profile was received from your office. In accordance with the [facility] Ambiguous Test Code Policy dated April 2003, we have completed your order by using the closest currently or formerly recognized AMA panel. We have assigned Comprehensive Metabolic Panel (14), Test Code #212936 to this request. If this is not the testing you wished to receive on this specimen, please contact the [facility] Client Inquiry/Technical Services Department to clarify the test order. We appreciate your business. Hemoglobin A1c* Reviewed date:01/14/2025 11:09:22 AM Interpretation: Performing Lab:[facility], [address] [facility], Phone - [phone], Director - [place] Notes/Report: Hemoglobin A1c 5.0 4.8-5.6 % . Prediabetes: 5.7 - 6.4 Diabetes: >6.4 Glycemic control for adults with diabetes: <7.0 REASON FOR VISIT lab Social History Sex Assigned At : Social History Observation Description Sex Assigned At Female Encounters Encounter Location Date Provider Diagnosis [address] [address] 01/09/2025 Robert Argueta MARY (generalized anxiety disorder) [...] * Manjula LEE NDOB:[birth year] (25 yo F)Acc No.[id number]:01/09/2025 UNLOCKED PROGRESS NOTE Patient: Manjula SINGLETARY Provider: Kaylee Argueta APN :2000 A ge:24 Y S ex:Female Date:01/09/2025 Address:[address] [place], [place] [id number] Pcp:Laura Iniguez 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 [...] * Electronic signature of Robert Argueta on 08/14/2025 at 08:52 PM CAR REPAIRER Sign off status: Pending * Provider: Kaylee Argueta APN Date: 0 01/09/2025 Generated for Cintia osman/Migdalia/Dayna on: 1 10/14/2024 08:52 PM CAR REPAIRER
--- OUTSIDE RECORDS SUMMARY | 2025-02-13 07:00 | XMS_ITS ---
Author Organization [facility] Address [address] [place] [address] Care Team Providers Care Supervisor Electronic Testing Name Role Phone Laura Iniguez Primary Care Provider ArguetaRobert baker Unavailable [phone] Results Component Value Reference Range Notes CBC With Differential/Platel et* Reviewed date:02/18/2025 04:34:10 PM Interpretation: Performing Lab:[facility] [place], [address] [facility], [place], Phone - [phone], Director - PhDRicchichei Notes/Report: WBC 8.9 3.4-10.8 x10E3/uL RBC 4.70 3.77-5.28 x10E6/uL Hemoglobin 14.0 11.1-15.9 g/dL Hematocrit 44.4 34.0-46.6 % MCV 95 79-97 fL MCH 29.8 26.6-33.0 pg MCHC 31.5 31.5-35.7 g/dL RDW 13.8 11.7-15.4 % Platelets 300 150-450 x10E3/uL Neutrophils 62 Not Estab. % Lymphs 32 Not Estab. % Monocytes 5 Not Estab. % Eos 1 Not Estab. % Basos 0 Not Estab. % Neutrophils (Absolute) 5.4 1.4-7.0 x10E3/uL Lymphs (Absolute) 2.9 0.7-3.1 x10E3/uL Monocytes(Absolute) 0.5 0.1-0.9 x10E3/uL Eos (Absolute) 0.1 0.0-0.4 x10E3/uL Baso (Absolute) 0.0 0.0-0.2 x10E3/uL Immature Granulocytes 0 Not Estab. % Immature Grans (Abs) 0.0 0.0-0.1 x10E3/uL Please note The date and/or time of collection was not indicated on the requisition as required by state and federal law. The date of receipt of the specimen was used as the collection date if not supplied. REASON FOR VISIT labs Social History Sex Assigned At : Social History Observation Description Sex Assigned At Female Encounters Encounter Location Date Provider Diagnosis [address] [address] 02/13/2025 Robert Argueta Leukocytosis D72.829 and Neutrophilia D72.9 Assessments Encounter Date Diagnosis (ICD Code) Assessment Notes Treatment Notes Treatment Clinical Notes Section Notes 02/13/2025 Leukocytosis (ICD-10 - D72.829) 02/13/2025 Neutrophilia (ICD-10 - D72.9) Plan Of Treatment No Information Progress Notes * Manjula LEE NDOB:[birth year] (25 yo F)Acc No.[id number]:02/13/2025 UNLOCKED PROGRESS NOTE Patient: Manjula SINGLETARY Provider: Kaylee Argueta APN :2000 A ge:24 Y S ex:Female Date:02/13/2025 Address:[address] [place], [place] [phone] Pcp:Laura Iniguez Check In:01:02 PM 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 Labs. * Medical History: Objective: * Vitals: Assessment: * Assessment: 1. L eukocytosis - D72.829 2 . N eutrophilia - D72.9 Plan: * Treatment: 2. N eutrophilia L AB: CBC With Differential/Platelet* (Collection Date & Time - 02/13/2025) * * Electronic signature of Robert Argueta on 08/14/2025 at 08:52 PM LINE PILOT Sign off status: Pending * Provider: Kaylee Argueta APN Date: 0 02/13/2025 Generated for Cintia osman/Migdalia/eTransmitting on: 1 10/14/2024 08:52 PM LINE PILOT
[2025-08-14 16:23] LABS: Beta HCG Quantitative 3.48 mIU/ML
--- OUTSIDE RECORDS SUMMARY | 2025-08-14 20:52 | XMS_ITS | Data Portability ---
Author Organization [place] [facility] [employer], Main Office Address [address] [place] [address] Assessment Encounter Date Assessment Date Assessment LastModified by Organization Details LastModified Time 01/17/2023 01/17/2023 NEETA LOMAS 01/17/23 Call office if worse, ER is life-threatening illness RTC in 3 months She voices understanding of plan and agrees Not available 01/17/2023 13:00:58 04/28/2023 04/28/2023 NEETA BUSH 01/17/23 Call office if worse, ER is life-threatening illness RTC in 1 month She voices understanding of plan and agrees [email or web address] Not available 04/28/2023 17:19:10 06/09/2023 06/09/2023 NEETA LOMAS 01/17/23 Call office if worse, ER is life-threatening illness RTC in 4 months and PRN She voices understanding of plan and agrees [email or web address] Not available 06/09/2023 13:13:10 Plan of Treatment Reminders Order Date Submit Date Provider Last Modified By Organization Details Last Modified Time Details Appointments None recorded. Lab None recorded. Referral dermatolog ist referral 2023 024 [facility], [address] [place] [address], [address], 08:00:15 Procedures None recorded. Surgeries None recorded. Imaging None recorded. Medication Orders triamcinol one acetonide 0.1 % topical cream 2023 024 [id number], [address], [place], [address], 4 15:19:16 omeprazole 20 mg capsule,de layed release 2022 023 [id number], [address], [place], [address], 4 15:02:22 famotidine 40 mg tablet 2022 023 [id number], [address], [place], [address], 4 15:02:05 omeprazole 20 mg capsule,de layed release 2022 023 [id number], [address], [place], [address], 4 15:02:22 famotidine 40 mg tablet 2022 023 [id number], [address], [place], [address], 4 15:02:05 Patient TargetsNo targets recorded. 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 [id number] Not Available 12/08/2022 02:04:53 01/07/20 23 11/16/2022 david r monit or No observ ation record ed. [address] [facility] [address], [place], [address], 01/09/2023 16:44:36 01/12/20 23 01/11/2023 david r monit or No observ ation record ed. [address] [facility] [address], [place], [address], 01/11/2023 10:44:50 01/25/20 23 01/24/2023 david r monit or No observ ation record ed. [address] [facility] [address], [place], [address], 01/25/2023 14:03:38 02/08/20 23 02/06/2023 , [facility] No observ ation record ed. [address] [facility] [address], [place], [address], 02/07/2023 14:06:17 02/17/20 23 02/16/2023 david r monit or No observ ation record ed. [address] [facility] [address], [place], [address], 02/16/2023 12:00:44 02/17/20 23 02/16/2023 david r monit or No observ ation record ed. [email or web address] [id number] [facility] [address], [place], [address], 02/20/2023 10:04:40 02/28/20 23 02/27/2023 home sleep study No observ ation record ed. [email or web address] [facility] [address], [place], [address], 03/07/2023 16:54:01 Result Notes None recorded. Problems Name Problem SNOMED Code Status Onset Date Resolution Date Notes Provider Name and Address Organization Details Recorded Time Vitamin D deficiency 51943514 Active 2022 Teresa Peres APRN [address], [place], [address] , [facility] 4 12:28:17 Cobalamin deficiency 814030180 Active 2022 Teresa Peres APRN [address], [place], [address] , [facility] 4 12:27:55 Intermitte nt palpitatio ns 349303460 Active 2022 Not Available [facility] 3 15:14:40 Generalize d anxiety disorder 31117576 Active 2022 Teresa Peres APRN [address], [place], [address] , [facility] 4 12:28:03 Irritable bowel syndrome 28672796 Active 2022 Teresa Peres APRN [address], [place], [address] , [facility] 4 12:28:11 Vitamin B12 deficiency (non anemic) 77358842 Completed 202208/09/2024 Teresa Peres APRN [address], [place], [address] , [facility] 4 14:14:57 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 tristen 543364255 Active 2023 Teresa Peres APRN [address], [place], [address] , [facility] 4 15:14:37 Atopic dermatitis 18956152 Active 2023 Teresa DIEGO Peres [address], [place], [address] , [facility] 4 15:16:17 Problem Notes None recorded. Procedures Surgical History Date Name Laterality Status Provider Name and Address Organization Details Recorded Time colonoscopy completed Lou Benavides MA [facility] 02/08/2024 15:03:38 Imaging Results None recorded. Procedure Notes None recorded. Medical Equipment None Reported. Allergies Allergen ID Allergen Name Allergen Category Reaction Reaction Severity Criticality Documentation Date Start Date Code Code System Note Provider Name and Address Organization Details Recorded Time 93416 No known allergy (situatio n) Not available Not available Not available Not available 02/07/2024 73995 6003 SNOMED Teresa ParishDIEGO dominguez [address], [place], [address], [facility] 4 12:24:59 No known drug allergies Medications [...] Heart rate Body temperature Body weight Systolic And Diastolic Provider Name and Address Organization Details Last Updated DateTime 3 35.8 kg/m2 160.02 cm 99 % 99 % 88 /min 97.7 [degF] 54580.6 6 g 132/82 mm[Hg] Not Available [facility] 3 02:04:43 Date Recorded Body height Body mass index (BMI) Body weight Body temperature Heart rate Oxygen saturation Oxygen saturation in Arterial blood by Pulse oximetry Systolic And Diastolic Provider Name and Address Organization Details Last Updated DateTime 3 160.02 cm 34.9 kg/m2 35730.7 g 97.8 [degF] 88 /min 98 % 98 % 124/82 mm[Hg] Richelle Kiser MA [facility] 3 12:09:43 Date Recorded Body height Body mass index (BMI) Body weight Body temperature Heart rate Oxygen saturation Oxygen saturation in Arterial blood by Pulse oximetry Systolic And Diastolic Provider Name and Address Organization Details Last Updated DateTime 4 160.02 cm 30.8 kg/m2 86223.0 7 g 97.4 [degF] 79 /min 96 % 96 % 110/72 mm[Hg] Lou Benavides MA [facility] 4 15:01:40 Date Recorded Body height Body mass index (BMI) Body weight Body temperature Heart rate Oxygen saturation Oxygen saturation in Arterial blood by Pulse oximetry Systolic And Diastolic Provider Name and Address Organization Details Last Updated DateTime 3 160.02 cm 35.3 kg/m2 44775.8 8 g 97.6 [degF] 76 /min 97 % 97 % 124/76 mm[Hg] Richelle Kiser MA [facility] 3 16:17:19 Date Recorded Body height Body mass index (BMI) Body weight Body temperature Heart rate Oxygen saturation Oxygen saturation in Arterial blood by Pulse oximetry Systolic And Diastolic Provider Name and Address Organization Details Last Updated DateTime 3 160.02 cm 34.7 kg/m2 85535.1 g 97.8 [degF] 78 /min 97 % 97 % 132/78 mm[Hg] Richelle Kiser MA [facility] 3 11:15:58 Social History Question Answer Notes LastModified by Organizat ion Details LastModified Time Tobacco Smoking Status Never Smoker Not Available [facility] 12/08/2022 02:04:36 What Is Your Level Of Caffeine Consumption? Occasional [id number] Information not available 12/08/2022 In The 14 Days Before Symptom Onset, Have You Had Close Contact With A Laboratory-confir med COVID-19 While That Case Was Ill? No MIGRATION.72661 [id number] Information not available 12/08/2022 In The 14 Days Before Symptom Onset, Have You Had Close Contact With A Person Who Is Under Investigation For COVID-19 While That Person Was Ill? No MIGRATION.13602 91728 Information not available 12/08/2022 What Type Of Diet Are You Following? REGULAR MIGRATION.82175 38740 Information not available 12/08/2022 Which Illicit Or Recreational Drugs Have You Used? Marijuana Information not available 02/08/2024 What Is The Highest Grade Or Level Of School You Have Completed Or The Highest Degree You Have Received? AM51145-5 MIGRATION.39015 76736 Information not available 12/08/2022 Have There Been Any Changes To Your Family Or Social Situation? No MIGRATION.04076 29620 Information not available 12/08/2022 What Is The Fluoride Status Of Your Home? Unknown MIGRATION.68181 26953 Information not available 12/08/2022 Are There Any Guns Present In Your Home? No MIGRATION.62279 28781 Information not available 12/08/2022 Do You Use Insect Repellent Routinely? Yes MIGRATION.46781 43067 Information not available 12/08/2022 Where Do You Live? SingleLevelHouse MIGRATION.26070 97270 Information not available 12/08/2022 What Was The Date Of Your Most Recent Tobacco Screening? 02/08/2024 Information not available 02/08/2024 How Many Children Do You Have? 0 Information not available 02/08/2024 Do You Have Any Pets? Yes MIGRATION.55951 99312 Information not available 12/08/2022 What Is Your Relationship Status? Single MIGRATION.51795 95849 Information not available 12/08/2022 Do You Use Your Seat Belt Or Car Seat Routinely? Yes MIGRATION.50179 76873 Information not available 12/08/2022 Do You Have Smoke And Carbon Monoxide Detectors In Your Home? Yes MIGRATION.18657 15801 Information not available 12/08/2022 Are You Passively Exposed To Smoke? No MIGRATION.27469 74518 Information not available 12/08/2022 Are There Any Smokers In Your House? No MIGRATION.34229 14599 Information not available 12/08/2022 Do You Use Sunscreen Routinely? Yes MIGRATION.05956 09384 Information not available 12/08/2022 Have You Recently Traveled Abroad? No MIGRATION.30245 20831 Information not available 12/08/2022 Have You Used IV Drugs? No Information not available 02/08/2024 Do You Have Any Dietary Restrictions? No MIGRATION.59218 61332 Information not available 12/08/2022 Sex: Unknown Functional Status Question Answer Note LastModified by Organizat ion Details LastModified Time Do you use any illicit or recreational drugs? Yes cannabis Information not available 02/08/2024 Do you or have you ever used any other forms of tobacco or nicotine? Yes MIGRATION.064631 3631 Information not available 12/08/2022 What is your level of alcohol consumption? Occasional MIGRATION.682797 1630 Information not available 12/08/2022 Do you or have you ever used smokeless tobacco? 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 Current user of electronic cigarettes MIGRATION.461243 1098 Information not available 12/08/2022 What is your exercise level? Occasional MIGRATION.244048 4776 Information not available 12/08/2022 Mental Status Question Answer Note LastModified by Organizat ion Details LastModified Time Do you feel stressed (tense, restless, nervous, or anxious, or unable to sleep at night)? [id number] MIGRATION.[id number] 6 Information not available 12/08/2022 Family History [...] Details Recorded Time Hib, unspecified formulation 1 completed Teresa Peres APRN [address], [place], [address], [facility] 02/07/2024 12:24:23 Hib-Hep B 2 completed Teresa Peres APRN [address], [place], [address], [place] [facility] 02/07/2024 12:24:23 Hib-Hep B 1 completed Teresa Peres APRN [address], [place], [address], [facility] 02/07/2024 12:24:23 IPV 2 completed Teresa Peres APRN [address], [place], [address], [facility] 02/07/2024 12:24:23 IPV 6 completed Teresa Peres APRN [address], [place], [address], [facility] 02/07/2024 12:24:23 IPV 1 completed Teresa Peres APRN [address], [place], [address], [facility] 02/07/2024 12:24:23 IPV 1 completed Teresa Peres APRN [address], [place], [address], [facility] 02/07/2024 12:24:23 MMR 2 completed Teresa Peres APRN [address], [place], [address], [place] [facility] 02/07/2024 12:24:23 MMR 6 completed Teresa Peres APRN [address], [place], [address], [facility] 02/07/2024 12:24:23 pneumococcal conjugate PCV 7 2 completed Teresa Peres APRN [address], [place], [address], [facility] 02/07/2024 12:24:23 pneumococcal conjugate PCV 7 2 completed Teresa Peres APRN [address], [place], [address], [facility] 02/07/2024 12:24:23 pneumococcal conjugate PCV 7 1 completed Teresa Peres APRN [address], [place], [address], [facility] 02/07/2024 12:24:23 pneumococcal conjugate PCV 7 1 completed Teresa Peres APRN [address], [place], [address], [facility] 02/07/2024 12:24:23 Tdap 2 completed Teresa Peres APRN [address], [place], [address], [facility] 02/07/2024 12:24:23 Tdap 2 completed Teresa Peres APRN [address], [place], [address], [facility] 02/07/2024 12:24:23 varicella 2 completed Teresa Peres APRN [address], [place], [address], [facility] 02/07/2024 12:24:23 varicella 2 completed Teresa Peres APRN [address], [place], [address], [facility] 02/07/2024 12:24:23 Influenza, split virus, trivalent, preservative 2 completed Teresa Peres APRN [address], [place], [address], [facility] 02/07/2024 12:24:23 HPV, quadrivalent 4 completed Teresa Peres APRN [address], [place], [address], [facility] 02/07/2024 12:24:23 HPV, quadrivalent 3 completed Teresa Peres APRN [address], [place], [address], [facility] 02/07/2024 12:24:23 HPV, quadrivalent 5 completed Teresa Peres APRN [address], [place], [address], [facility] 02/07/2024 12:24:23 Hep B, adolescent or pediatric [address], [place], [address], [facility] 02/07/2024 12:24:24 Hep A, ped/adol, 2 dose [address], [place], [address], [facility] 02/07/2024 12:24:24 Hep A, ped/adol, 2 dose 3 completed [address], [place], [address], [facility] 02/07/2024 12:24:24 meningococcal MCV4P 8 completed Teresa Peres APRN [address], [place], [address], [facility] 02/07/2024 12:24:24 meningococcal MCV4P 3 completed Teresa Peres APRN [address], [place], [address], [facility] 02/07/2024 12:24:24 DTaP 6 completed Teresa Peres, CAPPER MACHINE OPERATOR [address], [place], [address], [facility] 02/07/2024 12:24:24 DTaP 1 completed Teresa Peres, CAPPER MACHINE OPERATOR [address], [place], [address], [facility] 02/07/2024 12:24:24 DTaP 1 completed Teresa Peres, CAPPER MACHINE OPERATOR [address], [place], [address], [facility] 02/07/2024 12:24:24 DTaP 2 completed Teresa Peres, CAPPER MACHINE OPERATOR [address], [place], [address], [facility] [employer] [facility] 02/07/2024 12:24:24 Past Encounters Encounter ID Performer Location Encounter Start Date Encounter Closed Date Diagnosis/Indication Diagnosis SNOMED-CT Code Diagnosis ICD10 Code Diagnosis IMO Codes Diagnosis Note [id number] Hola martinez MD S[facility] Internal Med [facility] [address] [facility] [address] [place] [address] 12/06/2022 00:00:00 12/06/2022 12:57:18 [id number] Hola martinez MD [facility] Internal Med [facility] [address] [address] [place] [address] 01/17/2023 12:02:05 01/17/2023 12:21:52 Intermittent palpitations 306499334 R00.2 now following cardiology - Dr. 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- on fluoxetine and prn hydroxyzin e- cardiology had her stop thesehas appt with PRODUCTION LAPPING MACHINE OPERATOR tomorrow to discuss other optionsCal l office if any change in mood or behaviorSh e declines psychiatry referral today Irritable bowel syndrome 23161041 K58.9 Eventually wants to see GI, but she wants to wait on this referral until she is finished with her cardiology work up Adult [facility] th examination 488935748 Z00.01 Vitamin D deficiency 347 25540 E55.9 on supplement Vitamin B1 2 deficiency (non anemic) 31861733 E53.8 on supplement High densi ty lipoprotein deficiency 259191937 E78.6 recommend healthy, well balanced mealsfocus on lean meats, fresh vegetables , fresh fruits, whole grainsredu ce fast/proce ssed foods or eating out to no more than 1-2 times per weekaim to get 30 min of exercise most days of the week- walking is a great choicealso recommend resistance training 2-3 times per week can add OTC fish oil Depression screening 171 731354 Z13.31 Obesity 216627859 E66.9 recommend healthy, well balanced mealsfocus on lean meats, fresh vegetables , fresh fruits, whole grainsredu ce fast/proce ssed foods or eating out to no more than 1-2 times per weekaim to get 30 min of exercise most days of the week- walking is a great choicealso recommend resistance training 2-3 times per week [id number] Hola martinez MD [facility] Internal [facility] [address] [facility] [place] [address] 04/28/2023 16:09:15 04/28/2023 16:28:55 Intermittent palpitations 936736942 R00.2 now following cardiology - Dr. Garret barcenass currently Generalize d anxiety disorder 52624836 F41.1 on fluoxetine from GYNCall office if any change in mood or behaviorSh e declines psychiatry referral today Irritable bowel syndrome 78187744 K58.9 Eventually wants to see GI, but she wants to wait on this referral until she is finished with her cardiology work up Vitamin D deficiency 347 43392 E55.9 on supplement Vitamin B1 2 deficiency (non anemic) 84111607 E53.8 on supplement High densi ty lipoprotein deficiency 379680360 E78.6 recommend healthy, well balanced mealsfocus on lean meats, fresh vegetables , fresh fruits, whole grainsredu ce fast/proce ssed foods or eating out to no more than 1-2 times per weekaim to get 30 min of exercise most days of the week- walking is a great choicealso recommend resistance training 2-3 times per week can add OTC fish oil Obesity 107131845 E66.9 recommend healthy, well balanced mealsfocus on lean meats, fresh vegetables , fresh fruits, whole grainsredu ce fast/proce ssed foods or eating out to no more than 1-2 times per weekaim to get 30 min of exercise most days of the week- walking is a great choicealso recommend resistance training 2-3 times per week Sleep apnea 91483805 G47 .30 awaiting CPAP- cardiology ordering Gastroesop hageal reflux disease without esophagitis 434053086 K21.9 Start omeprazole in the morning and famotidine at HS-she is aware of side effects, risks, and benefits Acid reduction lifestyle measures discussedI f no improvemen t at follow-up, we will plan for EGD referral [id number] Hola martinez MD [facility] [address] [facility] [place] [address] 06/09/2023 11:06:59 06/09/2023 11:32:51 Intermittent palpitations 677050018 R00.2 now following cardiology - Dr. Garret barcenas currently Generalize d anxiety disorder 00055935 F41.1 on fluoxetine from GYNCall office if any change in mood or behaviorSh e declines psychiatry referral today Irritable bowel syndrome 92529207 K58.9 Eventually wants to see GI, but she wants to wait on this referral until she is finished with her cardiology work up Vitamin D deficiency 347 56835 E55.9 on supplement Vitamin B1 2 deficiency (non anemic) 77846907 E53.8 on supplement High densi ty lipoprotein deficiency 330806962 E78.6 recommend healthy, well balanced mealsfocus on lean meats, fresh vegetables , fresh fruits, whole grainsredu ce fast/proce ssed foods or eating out to no more than 1-2 times per weekaim to get 30 min of exercise most days of the week- walking is a great choicealso recommend resistance training 2-3 times per week can add OTC fish oil Obesity 984467800 E66.9 recommend healthy, well balanced mealsfocus on lean meats, fresh vegetables , fresh fruits, whole grainsredu ce fast/proce ssed foods or eating out to no more than 1-2 times per weekaim to get 30 min of exercise most days of the week- walking is a great choicealso recommend resistance training 2-3 times per week Sleep apnea 75147001 G47 .30 awaiting CPAP- cardiology ordering Gastroesop hageal reflux disease without esophagitis 512492959 K21.9 on omeprazole in the morning and famotidine at HS-she is aware of side effects, risks, and benefitsAc id reduction lifestyle measures discussed [id number] Hola martinez MD [facility] [address] [facility] [place] [address] 02/08/2024 14:51:53 02/08/2024 15:21:13 Atopic dermatitis 68135343 L20.9 Health Concerns Section Related Observation LastModified by Organization Detai ls LastModified Time None Recorded Concern Status LastModified by Organization Details LastModified Time None Recorded Advance Directives Directive None Recorded Payers Insurance Date Sequence Insurance Name Policy Number Policy Foote Covered Member ID Foote Member ID Guarantor Name 08/15/2024 1 [facility] - DOS ON OR AFTER 21 (MEDICAID REPLACEMENT - HMO) Manjula Head [id number] Manjula Head Notes Date Note Type Note Provider Name and Address Organization Details Recorded Time 01/17/2023 text/html Manjula presents today for follow-up. She is also due for annual wellness exam. She did see Cardiology. She is currently wearing a Holter monitor. She reports she had some abnormalities and her licensed veterinary technician called her last week and told her [...] Her anxiety meds are managed by her grain trimmer. She reports she has an appointment with them tomorrow to discuss other options. She denies any SI or HI today. We discussed her labs today. She is taking the weekly vitamin-D and a daily vitamin B12. She has noticed an improvement in energy. We also discussed her other labs results. KIRSTEN Oakes [address], [place], [id number], [facility] 01/17/2023 13:02:40 04/28/2023 text/html Manjula presents today for follow-up. She is now changed cardiologists and is seeing Dr. Young Davis. She never did end up getting the ILR implanted. Patient tells me that a lot of her palpitations are happening while she is sleeping. She was diagnosed with sleep apnea. She reports the licensed veterinary technician is working on getting her a CPAP. Her guest house manager now has her back on the fluoxetine. She reports that is doing much better controlling her anxiety. She feels like this is a good dose for her. She denies any SI or HI today. She is taking her vitamin-D and her vitamin B12. Her main complaint today is she is having issues with acid reflux. She has tried weec-rky-jscbytl meds before with no improvement. She was previously on acid medication when she was a teenager as she has had EGD and colonoscopy done before [facility]. She reports this is worse at night. She wakes up with significant belching and acid reflux. She does admit to eating close to bedtime. She denies any blood in the stool, dark tarry stools, or any blood in the emesis. She denies any vomiting. KIRSTEN Oakes [address], [place], [phone], [facility] 04/28/2023 17:20:24 06/09/2023 text/html Manjula presents today for follow-up. Last visit, we added back the omeprazole and added famotidine at HS. She reports all of her acid reflux symptoms are now completely resolved. She is no longer having the abdominal pain, the belching or waking up with reflux. She is feeling overall much better. She is back on the fluoxetine from her grain trimmer. She reports her anxiety is much better controlled. She denies any SI or HI today. She has been working on eating better nutrition and getting some exercise. She has lost about 20 lb. She tells me since that has happened she overall is feeling better. KIRSTEN Oakes [address], [place], [phone], [facility] 06/09/2023 13:13:37 02/08/2024 text/html Carmita presents today [...] study which is being referred by her licensed veterinary technician. 04/28/2023Manjula presents today for follow-up. She is now changed cardiologists and is seeing Dr. Young Davis. She never did end up getting the ILR implanted. Patient tells me that a lot of her palpitations are happening while she is sleeping. She was diagnosed with sleep apnea. She reports the licensed veterinary technician is working on getting her a CPAP. Her guest house manager now has her back on the fluoxetine. She reports that is doing much better controlling her anxiety. She feels like this is a good dose for her. She denies any SI or HI today. She is taking her vitamin-D and her vitamin B12. Her main complaint today is she is having issues with acid reflux. She has tried cohy-ggg-lfllari meds before with no improvement. She was previously on acid medication when she was a teenager as she has had EGD and colonoscopy done before [facility]. She reports this is worse at night. She wakes up with significant belching and acid reflux. She does admit to eating close to bedtime. She denies any blood in the stool, dark tarry stools, or any blood in the emesis. She denies any vomiting. Teresa Peres APRN [address], [place], [id number], [facility] 02/08/2024 15:19:25 OBGyn Episode No OBEpisode recorded.
--- OUTSIDE RECORDS SUMMARY | 2025-08-14 20:52 | XMS_ITS | Data Portability ---
Author Organization MD - [facility] [place] Address [address] [place] [address] [place] [address] Assessment Encounter Date Assessment Date Assessment LastModified by Organization Details LastModified Time 09/24/2024 09/24/2024 Annual gynecological exam performed. Patient will come back in a year unless there are new symptoms. [email or web address] Not available 09/24/2024 14:30:00 Plan of Treatment Reminders Order Date Submit Date Provider Last Modified By Organization Details Last Modified Time Details Appointments [facility] 2024 01:30P Jamaal Arriola CNM Not available Not available Not available Lab unlisted lab - [facility] swab plus, KEYANNA 2024 025 [facility] (Lab), [address], [place], [address], 05/26/2025 18:32:22 Referral None recorded. Procedures None recorded. Surgeries None recorded. Imaging US, transvagi nal 2023 024 [email or web address] [place], [address], [address], [place], [address], 04/16/2024 21:31:43 Medication Orders fluconazo le 150 mg tablet 2024 025 [facility] #[id number], [address], [place], [address], 05/23/2025 12:54:30 metronida zole 500 mg tablet 2024 025 [facility][id number], [address], [place], [address], 06/06/2025 05:01:50 nystatin 100,000 unit/gram topical ointment 2024 025 [id number], [address], [place], [address], 05/23/2025 12:55:20 triamcino lone acetonide 0.1 % topical ointment 2024 025 [id number], [address], [place], [address], 05/23/2025 12:55:20 fluoxetin e 20 mg tablet 2023 025 [id number], [address], [place], [address], 05/23/2025 12:43:20 Patient TargetsNo targets recorded. Patient InstructionsNo instructions recorded. Reason for Referral None Reported. Results Created Date Observation Date Name Description Value Unit Range Abnormal Flag Note LastModifiedBy Organization Detail LastModifiedTime 09/24/20 24 09/24/2024 [facility], KEYANNA bacterial vaginosis (bv), tma Negati ve negati ve Not Available [facility] (Lab) [address] [place], [address], 09/25/2024 13:52:03 09/24/20 24 09/24/2024 [facility]AB [facility], KEYANNA soraida species, tma Negati ve negati ve Not Available [facility] (Lab) [address] [place], [address], 09/25/2024 13:52:03 09/24/20 24 09/24/2024 [facility] SWAB [facility], KEYANNA soraida glabrata, tma Negati ve negati ve Not Available [facility] (Lab) [address] [place], [address], 09/25/2024 13:52:03 09/24/20 24 09/24/2024 [facility]AB [facility], KEYANNA trichomonas vaginalis, tma Negati ve negati ve Not Available [facility] (Lab) [address], [place], [address], 09/25/2024 13:52:03 09/24/20 24 09/24/2024 [facility], KEYANNA chlamydia trachomatis, PCR Negati ve negati ve Not Available [facility] (Lab) [address], [place], [address], 09/25/2024 13:52:03 09/24/20 24 09/24/2024 WOMEN 'S [...] ded in this panel . Not Available [facility] (Lab) [address], [place], [address], 09/25/2024 13:52:03 05/23/20 25 05/23/2025 [facility] SWAB [facility], KEYANNA bacterial vaginosis (bv), tma Negati ve negati ve Not Available [facility] (Lab) [address] [place], [address], 05/26/2025 18:32:22 05/23/20 25 05/23/2025 [facility] soraida species, tma Negati ve negati ve Not Available [facility] (Lab) [address] [place], [address], 05/26/2025 18:32:22 05/23/20 25 05/23/2025 [facility] KEYANNA soraida glabrata, tma Negati ve negati ve Not Available [facility] (Lab) [address], [place], [address], 05/26/2025 18:32:22 05/23/20 25 05/23/2025 [facility] KEYANNA trichomonas vaginalis, tma Negati ve negati ve Not Available [facility] (Lab) [address] [place], [address], 05/26/2025 18:32:22 05/23/20 25 05/23/2025 [facility] KEYANNA chlamydia trachomatis, PCR Negati ve negati ve Not Available [facility] (Lab) [address] [place], [address], 05/26/2025 18:32:22 05/23/20 25 05/23/2025 [facility] KEYANNA neisseria gonorrhoeae, PCR [...] ded in this panel . Not Available [facility] (Lab) [address], [place], [address], 05/26/2025 18:32:22 04/16/20 24 04/16/2024 , trans vagin al No observ ation record ed. [email or web address] [place] [address], [place], [address], 04/16/2024 18:08:44 04/16/20 24 04/16/2024 , trans vagin al No observ ation record ed. [email or web address] [address], [place], [address], 04/16/2024 22:44:33 Result Notes None recorded. Problems Name Problem SNOMED Code Status Onset Date Resolution Date Notes Provider Name and Address Organization Details Recorded Time History of SARS-CoV -2 3734254801 [id number] Completed at 5-6w. on ASA. no growth needed since no placenta at time of infectio n. Viji [facility], [facility] 2 15:28:50 Polycyst ic ovary syndrome 040276875 Active 2021 Chiquita Mcneil MD [address], [place], [address], [facility] 2 16:35:16 Marijuan a user 494797788 Active 2021 Chiquita Mcneil MD [address], [place], [address], [facility] 2 16:35:29 Pregnanc y 21661205 Completed 202105/27/2022 Viji olson, [facility] 2 15:28:57 Problem Notes None recorded. Procedures Surgical History Date Name Laterality Status Provider Name and Address Organization Details Recorded Time 04/21/20 23 Date of Last Pap Smear completed Alina [facility] 04/21/2023 16:40:20 07/28/20 19 completed [facility] 01/04/2022 12:16:59 10/09/19 19 Date of Last Colonoscopy completed [facility] 01/04/2022 12:18:17 10/09/19 19 Colonoscopy completed [facility] 01/04/2022 12:18:40 10/09/19 18 colonoscopy completed Norah Reilly [facility] 10/19/2021 16:03:12 Imaging Results None recorded. [...] Updated DateTime 04/10/2024 160.02 cm 31.7 kg/m2 41432.75 g 131/77 mm[Hg] [facility] 04/10/2024 12:16:57 Date Recorded Body height Body mass index (BMI) Body weight Systolic And Diastolic Provider Name and Address Organization Details Last Updated DateTime 05/01/2024 160.02 cm 32.5 kg/m2 79350.56 g 105/69 mm[Hg] [facility] 05/01/2024 16:40:29 Date Recorded Body height Body mass index (BMI) Body weight Systolic And Diastolic Provider Name and Address Organization Details Last Updated DateTime 05/23/2025 160.02 cm 35.1 kg/m2 41724.29 g 115/74 mm[Hg] Danika Shanks [facility] 05/23/2025 12:42:57 Date Recorded Body height Body mass index (BMI) Body weight Systolic And Diastolic Provider Name and Address Organization Details Last Updated DateTime 09/24/2024 160.02 cm 32.4 kg/m2 50113.4 g 117/74 mm[Hg] Sharonda Kayen [facility] 09/24/2024 14:32:46 Social History Question Answer Notes LastModified by Organizat ion Details LastModified Time Tobacco Smoking Status Never Smoker Alina olson, [facility] 01/04/2022 12:17:00 Do You Have An Advance Directive? No [email or web address] Information n ot available 01/04/2022 Are You Blind Or Do You Have Difficulty Seeing? No [email or web address] Information n ot available 01/04/2022 What Is Your Level Of Caffeine Consumption? None [email or web address] Information not available 01/04/2022 How Much Tobacco Do You Chew? None [email or web address] Information not available 01/04/2022 In The 14 Days Before Symptom Onset, Have You Had Close Contact With A Laboratory-confirm ed COVID-19 While That Case Was Ill? No [email or web address] Information n ot available 01/04/2022 In The 14 Days Before Symptom Onset, Have You Had Close Contact With A Person Who Is Under Investigation For COVID-19 While That Person Was Ill? No [email or web address] Information not available 01/04/2022 Have You Been To An Area Known To Be High Risk For COVID-19? No Information not available 01/04/2022 Are You Deaf Or Do You Have Serious Difficulty Hearing? No [email or web address] Information not available 01/04/2022 What Type Of Diet Are You Following? REGULAR [email or web address] Information n ot available 01/04/2022 What Is The Highest Grade Or Level Of School You Have Completed Or The Highest Degree You Have Received? [id number] Information not available 01/04/2022 Are There Any Guns Present In Your Home? No [email or web address] Information not available 01/04/2022 Do You Use Protection During Sex? No [email or web address] Information not available 01/04/2022 Do You Use Your Seat Belt Or Car Seat Routinely? Yes [email or web address] Information not available 01/04/2022 Do You Have Smoke And Carbon Monoxide Detectors In Your Home? Yes [email or web address] Information not available 01/04/2022 How Much Tobacco Do You Smoke? No [email or web address] Information not available 01/04/2022 Do You Use Sunscreen Routinely? Yes [email or web address] Information not available 01/04/2022 Has Tobacco Cessation Counseling Been Provided? No [email or web address] Information not available 01/04/2022 Have You Used IV Drugs? No [email or web address] Information not available 01/04/2022 Do You Have Difficulty Walking Or Climbing Stairs? No [email or web address] Information not available 01/04/2022 Sex: Unknown Functional Status Question Answer Note LastModified by Organizat ion Details LastModified Time Do you use any illicit or recreational drugs? Yes Information not available 01/04/2022 Do you or have you ever used any other forms of tobacco or nicotine? No [email or web address] Information not available 01/04/2022 What is your level of alcohol consumption? None [email or web address] Information not available 10/19/2021 Are you able to walk independently without assistance or assistive devices? YESWOREST [email or web address] Information not available 01/04/2022 Are you able to care for yourself independently? 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 No [email or web address] Information not available 01/04/2022 What is your exercise level? Occasional [email or web address] Information not available 01/04/2022 Mental Status Question Answer Note LastModified by Organization D etails LastModified Time Do you feel stressed (tense, restless, nervous, or anxious, or unable to sleep at night)? [id number] [email or web address] Information not available 01/04/2022 Family History Relationship Description Onset Age of this Age Resolved Age Notes LastModified by Organization Details LastModified Time Unspecified Relation Family history unknown [email or web address] Not available 01/04 12:16:59 Medical History Condition Response Allergies (Food, seasonal, environmental ) N Other N Drug/Latex Allergies/Reactions N Breast Cancer N Blood Transfusion N Lung Disease Y Dermatologic Disorders N Defects or Inherited Disease N Breast Problem N Gestational Diabetes N Hematologic disorders N Anesthesia Complications N History of STI N Deep Vein Thrombosis N Polycystic ovary syndrome Y Anxiety Disorder Y Autoimmune disease N Arthritis N Polyps N Infertility N History of abnormal pap N Acid Reflux (GERD) N Cancer N Varicosities N Stroke N Neurologic/Epilepsy N Endometriosis N High Cholesterol N Headaches N Fibromyalgia N Kidney Disease N Heart Problems N Thyroid Problems N Kidney or Bladder Problems N GI Problems N Eating Disorder [...] ICD10 Code Diagnosis IMO Codes Diagnosis Note [id number] Chiquita Mcneil MD [place] [address] [address] 10/19/2021 15:51:07 10/19/2021 17:58:07 Urine test positive 649455885 Z32.01 Polycystic ovary syndrome 109078053 E28.2 Body mass index 30+ - obesity 054645007 Z68.37 Marijuana user 715100944 F12.90 Nausea and vomiting 1693 2000 R11.2 [id number] Chiquita Mcneil MD [place] [address] [address] 10/19/2021 16:19:05 10/19/2021 16:56:09 [id number] Chiquita Mcneil MD [place] [address] [address] 11/09/2021 15:26:18 11/09/2021 16:08:49 screening 776578483 Z36.82 [id number] Chiquita Mcneil MD [place] [address] [address] 11/09/2021 15:26:37 11/10/2021 11:28:28 Routine care 333304866 Z34.91 History of SARS-CoV-2 29 28097123 94926594 Z86.16 [id number] Sheryl Calixto [facility] [address],[place] [address] 12/06/2021 17:36:19 12/06/2021 18:04:26 Routine care 861195149 Z34.92 [id number] Sheryl Calixto [facility] [address],[place] [address] 01/04/2022 11:52:18 01/13/2022 16:35:22 Routine care 526347018 Z34.92 [id number] Albert Jason MD [place] [address],[place] [address] 01/04/2022 11:53:03 01/04/2022 17:50:01 screening for malformation 111647589 Z36.3 [id number] Aniyah Arriola [facility] [address],[place] [address] 02/02/2022 14:59:51 02/02/2022 16:41:21 Routine care 179866869 Z34.92 [id number] MD Rome Jones [address],[place] [address] 02/02/2022 14:59:36 02/02/2022 15:56:15 screening 851685198 Z36.2 [id number] Albert Jason MD [place] [address] [address] 03/02/2022 11:25:38 03/02/2022 12:15:17 Pre-existing maternal disease complicating 0037837172 6106 O99.891 U07.1 Z86.16 Z3A.28 [id number] Aniyah Arriola [facility] [address],[place] [address] 03/02/2022 11:26:04 03/02/2022 12:37:51 Routine care 490303166 Z34.92 [id number] Sheryl Calixto [facility] [address],[place] [address] 03/15/2022 11:56:21 03/16/2022 17:37:47 [id number] Chiquita Mcneil MD [place] [address],[place] [address] 03/30/2022 15:58:20 04/01/2022 11:45:55 Routine care 957741394 Z34.91 [id number] Chiquita Mcneil MD [place] [address],[place] [address] 03/30/2022 15:58:41 03/30/2022 16:41:31 Maternal obesity complicating , childbirth and the puerperium, antepartum 3394876543 07 O99.213 O99.891 U07.1 Z86.16 Z3A.32 [id number] Aniyah Arriola [facility] [address],[place] [address] 04/12/2022 09:38:02 04/12/2022 12:38:48 Routine care 086493540 Z34.92 [id number] Albert Jason MD [place] [address],[place] [address] 04/14/2022 16:59:00 04/14/2022 17:36:11 [id number] Chiquita Mcneil MD [place] [address],[place] [address] 04/27/2022 13:49:53 04/27/2022 14:49:36 COVID-19 836209200 U07.1 [id number] Aniyah Arriola [facility] [address],[place] [address] 04/27/2022 14:23:14 04/27/2022 15:00:06 Routine care 548811726 Z34.92 [id number] [facility] [address] [address] 06/01/2022 09:25:30 06/01/2022 09:47:03 care 839771096 Z39.0 [id number] [place] [address] [address] 07/27/2022 16:42:08 07/27/2022 17:18:53 Anxiety 30307467 F41.9 reviewed options, list of counselors given, reviewed se risks of benefits of daily meds, vs hydroxyzin e, pt would like to start out with that, f/u 4 weeks or sooner if neededto ED if any suicidal ideations [id number] Aniyah Arriola CNM [place] [address],[place] [address] 08/26/2022 16:00:29 08/26/2022 16:47:03 Mixed anxiety and depressive disorder 882175659 F41.8 [id number] Aniyah Arriola CNM [place] [address],[place] [address] 10/26/2022 16:10:21 10/26/2022 17:36:16 Mixed anxiety and depressive disorder 505698549 F41.8 may have refill of hydroxyzin e if needed Palpitations 12801686 R0 0.2 order holter monitor [id number] Aniyah Arriola [facility] [address],[place] [address] 01/18/2023 16:46:17 01/18/2023 18:19:10 Anxiety 86287764 F41.9 reviewed options, list of counselors given, reviewed se risks of benefits of buspar, will let cardiologi st know, any suicidal thoughts to ED f/u wwe and med check as scheduled. call with any rec from cardiology [id number] Aniyah Arriola [facility] [address],[place] [address] 02/10/2023 15:23:27 02/10/2023 16:14:37 Anxiety 60288266 F41.9 reviewed options, list of counselors given, reviewed se risks of benefits of Hydroxyzin e, mental and physical health both important, will refer to cardiology for 2nd opinion, any suicidal thoughts to ED f/u wwe and med check as scheduled. [id number] [facility] [address] [address] 03/21/2023 09:54:56 03/21/2023 10:51:42 Pain in pelvis 04321787 R10.2 Today we agreed to update an [...] counseling and review of plan of care. [id number] Albert Jason MD [place] [address],[place] [address] 03/23/2023 17:31:35 03/23/2023 17:54:03 Pain in pelvis 41370248 R10.2 [id number] Aniyah Arriola [facility] [address] [address] 04/21/2023 16:26:21 04/21/2023 16:55:41 Gynecologic examination 11284252 Z01.419 Anxiety 77745918 F41.9 doing well f/u 6 mo [id number] LUIS WEIR MD [place] [address] [address] 04/10/2024 12:03:05 04/10/2024 14:23:28 Pain in pelvis 71619479 R10.2 - similar episode to 03/2023, had hemorrhagi c cyst at that time- right sided pelvic pain for 4 days prior to period, now improved but still present- s/p miscarriag e 02/2024- will order pelvic US to r/o ovarian cyst [id number] Albert Jason MD [place] [address],[place] [address] 04/16/2024 17:30:56 04/16/2024 18:05:13 Cyst of right ovary 4823135783 [id number] N83.291 [id number] LUIS WEIR MD [place] [address] [address] 05/01/2024 16:27:41 05/02/2024 09:24:50 Pain in pelvis 48889948 R10.2 - similar episode to 03/2023, had hemorrhagi c cyst at that time- pelvic US overall unremarkab le, R hemorrhagi c cyst has resolved- pain likely due to ovulation pain- discussed suppressio n with combined hormonal contracept ion vs expectant management - patient desires expectant management at this time- rtc for WWE [id number] LUIS WEIR MD [place] [address] [address] 09/24/2024 14:18:19 09/24/2024 15:02:31 Anxiety 88803220 F41.9 - patient rep Mixed anxi ety and depressive disorder 446701207 F41.8 - patient reports worsening anxiety and depressive symptoms since stopping fluoxetine (lost PCP access)- will restart fluoxetine - no SI/HI- encouraged patient to find new PCP to continue management Gynecologi c examination 65927133 Z01.419 [facility] woman care- Cervical cancer screening: Pap smear not indicated (next 2025)- Breast cancer screening: mammogram not indicated- Colon cancer screening: does not qualify- HPV immunizati on: has not received- STD testing: declined- hereditary cancer screening: does not qualify for testing [id number] JAGRUTI Faith [place] [address] [address] 05/23/2025 12:36:34 05/27/2025 10:57:48 Acute vaginitis 16565127 N76.0 44222 vaginitis/ STI screen sentvulvar care guidelines discussedr x sent for BV/yeast, r/b/a reviewed Time spent in visit is a total of 22 mins with at least 50% of visit consisting of counseling and review of plan of care. Venereal d isease screening 679666579 Z11.3 06770 Health Concerns Section Related Observation LastModified by Organization Detai ls LastModified Time None Recorded Concern Status LastModified by Organization Details LastModified Time None Recorded Advance Directives Directive N: Payers Insurance Date Sequence Insurance Name Policy Number Policy Foote Covered Member ID Foote Member ID Guarantor Name 05/27/2025 1 [facility] ON OR AFTER 04/08/21 (MEDICAID REPLACEMENT - HMO) Manjula Head [id number] Manjula Head 10/18/2021 1 [facility] PRIOR TO 04/08/2021 (MEDICAID REPLACEMENT - HMO) Manjula Head [id number] Manjula Head Notes Date Note Type Note [...] gain. LUIS WEIR MD [address], [place], [address], [facility] 04/10/2024 13:59:23 05/01/2024 text/html Patient presents [...] period. LUIS WEIR MD [address], [place], [address], [facility] 05/01/2024 18:05:20 09/24/2024 text/html Presents today [...] fluoxetine. LUIS WEIR MD [address], [place], [address], [facility] 09/24/2024 15:02:22 05/23/2025 text/html Vaginal/Vulvar ProblemReported by Patient 25yopresents for vaginal d/c, odor, itching JAGRUTI Faith [address], [place], [address], [facility] 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 on ASA. no growth needed [...] Days Gestation 0 11/09/2021 05/20/20 22 0 Pre-hansel Flowsheet Flowsheet Date 11/09/2021 Everett Score Blood Edema Fundus Height Fundus Units Glucose Ketones Leukocytes Nitrite Labor Signs Protein Cervic Dilation Cervic Effacement Cervic Station neg none none trace Type Weight in lbs Pre/Post Dialysis Refused Weight 213.718517420166 BP Diastolic BP Location Tested BP Systolic [...] Weight in lbs Pre/Post Dialysis Refused Weight 215.314587077950 BP Diastolic BP Location Tested BP Systolic [...] Weight in lbs Pre/Post Dialysis Refused Weight 215.472038300781 BP Diastolic BP Location Tested BP Systolic [...] Weight in lbs Pre/Post Dialysis Refused Weight 216.049733478626 BP Diastolic BP Location Tested BP Systolic BP Type 83 131 Fetus Heart Rate Present Fetus Movement A Yes Comments PATIENT IS HAVING SOME HIP P AIN, NAUSEA AND VOMITING. PATIENT STATES THAT HAVING ISSUES WITH GETTING FLUSHED IN FACE. reviewed precautions anatomy complete, disc putter in and GCT next visit hx covid plan [...] Weight in lbs Pre/Post Dialysis Refused Weight 219.758351268848 BP Diastolic BP Location Tested BP Systolic BP Type 82 125 Fetus Heart Rate Present Fetus Movement A Yes Comments patient states that having s ome nausea and vomiting EFW 66%, doing well +FM, ok for Tdap, looking for putter in f/u 2 weeks Flowsheet Date 03/15/2022 Everett Score Blood Edema Fundus Height Fundus Units Glucose Ketones Leukocytes Nitrite Labor Signs Protein Cervic Dilation Cervic Effacement Cervic Station neg none 32 none trace Type Weight in lbs Pre/Post Dialysis Refused Weight 218.105155137640 BP Diastolic BP Location Tested BP Systolic [...] Weight in lbs Pre/Post Dialysis Refused Weight 216.669511049191 BP Diastolic BP Location Tested BP Systolic [...] Weight in lbs Pre/Post Dialysis Refused Weight 220.969554434997 BP Diastolic BP Location Tested BP Systolic [...] Weight in lbs Pre/Post Dialysis Refused Weight 223.457016319571 BP Diastolic BP Location Tested BP Systolic [...] Estim ated Date of Delivery false Thalassemia (Uzbek, Kazakh, Mediterranean, Or Background): MCV < 80 false Neural Tube Defect (Meningomyelocele, Spina Bifi da, Or Anencephaly) false Congenital Heart Defect false Down Syndrome false Taqueria-Sachs (eg, Synagogue, Cajun, Bermudian-Crenshaw) f alse Anneliese Disease false Sickle Cell Disease Or Trait () false Hemophilia Or Other Blood Disorders false Muscular Dystrophy false Cystic Fibrosis false Placer's Chorea false Intellectual Disability/Autism false If Yes, [...] Comments 2 Induce d Regional-Ep idural 37.5 Aniyah Hyatt CNM cholestas is, hypertens ion during labor, prolonged rom Discharge Information Feeding Method Contraceptive Method Maternal HG B and HCT Levels Breast Ob Episode Information Episode Created Date Number of Fetuses Patient Bloodtype Patient rh Status Prepregnancy Weight lbs Domestic Partner Domestic Partner Phone Father Name Waste And Batting Waste 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
--- OUTSIDE RECORDS SUMMARY | 2025-08-14 20:52 | XMS_ITS | Clinical Summary ---
Author Organization [facility] Address [address] [place] [address] Care Team Providers Care Power Plant Operators Supervisor Name Role Phone Eunice Garcia MD Primary Care Provider [phone] Source Comments [facility],non-owned Affiliates and Associated Physician Practices is amultiple site organization consisting of ambulatory clinics and hospital sitesin [place], [place], [place] and [place]. This disclosure is being madepursuant to the Care Everywhere program and may not contain all information available regarding this patient. Last updated 18.[facility] Allergies No known active allergies Medications * [...] 11/06/2017 Overview (11/06/2017): Aug 30, 2017 - [facility] ([facility]), [address] [place] [address] ([facility]) Insulin 221 uIU/mL (2.6-24.9), prolactin 37.6 ng/mL (4.8-23.3), total testosterone 28.5 ng/dL (20-38, Terence V, age: 11.8-18.6), free testosterone 7.1 pg/mL (ref range not given), fasting glucose 87 mg/dL, (1 hr) 93 mg/dL, (2 hr) 104 mg/dL, TSH 0.788 uIU/mL (0.45-4.5), free T4 (direct) 1.17 ng/dL (0.93-1.60), Assessment & Plan (11/06/2017 3:36 PM BONSAI CULTURIST): Mildly elevated serum prolactin level; cause uncertain (? Medication effect, OCP) 1. Repeat serum (fasting) prolactin level) 2. Obtain prior laboratory results from [facility] 3. Review medication/prolactin effects 4. Return appointment [...] on file Legal Sex Female 9:56 AM BONSAI CULTURIST Gender Identity Not on file Sexual Orientation Not on file Last Filed Vital Signs Vital Sign Reading Time Taken Comments Blood Pressure 124/76 09/09/2019 12:37 PM BONSAI CULTURIST Pulse 84 09/09/2019 12:37 PM BONSAI CULTURIST Temperature 37.1 C (98.7 F) 01/01/2020 11:17 AM CDT Respiratory Rate 20 09/09/2019 12:37 PM BONSAI CULTURIST Oxygen Saturation 99% 09/20/2018 2:20 PM BONSAI CULTURIST Inhaled Oxygen Concentration - - Weight 107.5 kg (237 lb) 01/01/2020 11:17 AM CDT Height 159.6 cm (5' 2.84) 09/09/2019 12:[address] Body Mass Index 42.2 09/09/2019 12:37 PM BONSAI CULTURIST Plan of Treatment Health Maintenance Due Date [...] time) Exercise On track( 018 9:23 AM BONSAI CULTURIST) No Shannan Ochoa, KATJA Use safety retraint [...] CDT 06/15/2018 Narrative Resulting Agency Comment [facility] [address] [phone] Eunice Garcia MD LAB - MICROBIOLOGY ORDERABLES Final Result [facility] INSURANCE BILL [address] [place] [address] from Last 3 Months or Most Recently Relevant to Health Maintenance Insurance [facility] Care Teams Power Plant Operators Supervisor Relationship Specialty Start Date End Date Eunice Garcia MD PCP - General 01/05/12
--- OUTSIDE RECORDS SUMMARY | 2025-08-14 20:53 | XMS_ITS | Patient Health Record ---
Author Organization [facility] Address [address] [place] [address] Care Team Providers Care Finger Buffs Assembler Name Role Phone Laura Iniguez Primary Care Provider [phone] Argueta, Robert Unavailable [phone] Allergies No Known Allergies Results Component Value Reference Range Notes Hemoglobin A1c* Reviewed date:01/14/2025 11:09:22 AM Interpretation: Performing Lab:[facility] [place], [address] [place] [address], Phone - [phone], Director - [facility] Notes/Report: Hemoglobin A1c 5.0 4.8-5.6 % . Prediabetes: 5.7 - 6.4 Diabetes: >6.4 Glycemic control for adults with diabetes: <7.0 Vitamin B12* Reviewed date:01/14/2025 11:08:43 AM Interpretation: Performing Lab:[facility], [facility], [place], Phone - [phone], Director - [facility] Notes/Report: Vitamin B12 697 494-1068 pg/mL Nadege Ellington CMP14 Default A hand-written panel/profile was received from your office. In accordance with the [facility] Ambiguous Test Code Policy dated April 2003, we have completed your order by using the closest currently or formerly recognized AMA panel. We have assigned Comprehensive Metabolic Panel (14), Test Code #858035 to this request. If this is not the testing you wished to receive on this specimen, please contact the [facility] Client Inquiry/Technical Services Department to clarify the test order. We appreciate your business. Folate (Folic Acid), Serum* Reviewed date:01/14/2025 11:09:29 AM Interpretation: Performing Lab:[facility], [address] [facility], Phone - [phone], Director - [facility] Notes/Report: Folate (Folic Acid), Serum 4.8 >3.0 ng/mL A serum folate concentration of less than 3.1 ng/mL is considered to represent clinical deficiency. Vitamin D, 25-Hydroxy* Reviewed date:01/14/2025 11:08:33 AM Interpretation: Performing Lab:[place] [id number] [facility], Phone - [phone], Director - [facility] Notes/Report: Vitamin D, 25-Hydroxy 11.3 30.0-100.0 ng/mL Vitamin D deficiency has been defined by the [place] of Medicine and an Endocrine Society practice guideline as a level of serum 25-OH vitamin D less than 20 ng/mL (1,2). The Endocrine Society went on to further define vitamin D insufficiency as a level between 21 and 29 ng/mL (2). 1. IOM ([place] of Medicine). 2010. Dietary reference intakes for calcium and D. [place]: The National Academies Press. 2. Alexander MF, Madina MISHRA, Ines YIN, et al. Evaluation, treatment, and prevention of vitamin D deficiency: an Endocrine Society clinical practice guideline. JCEM. 2010; 96(7):1911-30. TSH+Free T4* Reviewed date:01/14/2025 11:08:51 AM Interpretation: Performing Lab:[address], Phone - [phone], Director - [facility] Notes/Report: TSH 0.514 0.450-4.500 uIU/mL T4,Free(Direct) 1.16 0.82-1.77 ng/dL Lipid Panel* Reviewed date:01/14/2025 11:09:13 AM Interpretation: Performing Lab:[facility] [address] [place] [address], Phone - [phone], Director - [facility] Notes/Report: Cholesterol, Total 189 100-199 mg/dL Triglycerides 128 0-149 mg/dL HDL Cholesterol 41 >39 mg/dL VLDL Cholesterol Claude 23 5-40 mg/dL LDL Chol Calc (NIH) 125 0-99 mg/dL CMP 14 Comprehensive Metabol ic Panel* Reviewed date:01/14/2025 11:09:46 AM Interpretation: Performing Lab:[facility] [place], [address] [facility], Phone - [phone], Director - [place] Notes/Report: Glucose 75 70-99 mg/dL BUN 10 [...] 0-40 IU/L ALT (SGPT) 15 0-32 IU/L CBC With Differential/Platel et* Reviewed date:02/18/2025 04:34:10 PM Interpretation: Performing Lab:[facility] [place], [address] [facility], [place], Phone - [phone], Director - [place] Notes/Report: WBC 8.9 3.4-10.8 [...] as the collection date if not supplied. CBC/Diff Ambiguous Default Reviewed date:01/14/2025 11:08:20 AM Interpretation: Performing Lab:[facility] [place], [address] [facility], [place], Phone - [phone], Director - [place] Notes/Report: WBC 11.7 3.4-10.8 [...] from your office. In accordance with the [facility] Ambiguous Test Code Policy dated April 2003, we have assigned CBC with Differential/Platelet, Test Code #[id number] to this request. If this is not the testing you wished to receive on this specimen, please contact the [facility] Services Department to clarify the test order. We appreciate your business. Roxanamiguel Rakel AL Default Reviewed date:01/14/2025 11:07:06 AM Interpretation: Performing Lab:[facility], [address] [facility], Phone - [phone], Director - [place] Notes/Report: Nadege Ellington LP Default A hand-written panel/profile was received from your office. In accordance with the [facility] Ambiguous Test Code Policy dated April 2003, we have completed your order by using the closest currently or formerly recognized AMA panel. We have assigned Lipid Panel, Test Code #885723 to this request. If this is not the testing you wished to receive on this specimen, please contact [email or web address]/Technical Services Department to clarify the [...] hydrOXYzine HCl Acti ve Ergocalciferol 1.25 MG (48853 UT) 1 capsule Orally once weekly; Duration: [...] Status Risk Notes Problem Vitamin D deficiency (00899449) Vitamin D deficiency (E55.9) Active confirmed Problem Generalized anxiety disorder (26193393) MARY (generalized anxiety disorder) (F41.1) Active confirmed Problem Inattention (65545634) Inattention (R41.840) Active confirmed Problem Overweight (732271240) Over weight (E66.3) Active confirmed Problem Major depressive disorder (453729197) MDD (major depressive disorder) (F32.9) Active confirmed Problem Leukocytosis (779502245) Leukocytosis (D72.829) Active confirmed Problem Neutrophilia (320059558) Neutrophilia (D72.9) Active confirmed Vital Signs Heart Rate 75 /min 02/07/2025 Blood pressure diastolic 74 mm Hg 02/07/2025 Oximetry 98 % 02/07/2025 Height 63 in 06/04/2025 Blood pressure systolic 114 mm Hg 02/07/2025 Weight 196 lbs 06/04/2025 BMI 34.72 kg/m2 06/04/2025 Encounters Encounter Location Date Provider Diagnosis [address] [place] [address] 01/08/2025 Robert Bankser [address] [address] 01/14/2025 Robert Argueta Leukocytosis D72.829 ; Vitamin D deficiency E55.9 and Neutrophilia D72.9 [facility] [address] [place] [address] 05/29/2025 Laura Iniguez MARY (generalized anxiety disorder) F41.[address] [place] [address] 02/07/2025 Robert Argueta MARY (generalized anxiety disorder) F41.1 ; MDD (major depressive disorder) F32.9 ; Inattention R41.840 and Over weight E66.[address] [address] 01/09/2025 Robert Argueta MARY (generalized anxiety disorder) F41.1 ; MDD (major depressive disorder) F32.9 ; Inattention R41.840 ; Over weight E66.3 ; Screening for thyroid disorder Z13.29 ; Screening for hyperlipidemia Z13.220 and Screening for diabetes mellitus Z13.[address] [place] [address] 02/13/2025 Robert Argueta Leukocytosis D72.829 and Neutrophilia D72.[address] [place] [address] 06/04/2025 Laura Iniguez Over weight E66.3 ; MDD (major depressive disorder) F32.9 ; MARY (generalized anxiety disorder) F41.1 and Inattention R41.[address] [place] [address] 01/08/2025 Robertbell Argueta MARY (generalized anxiety disorder) F41.1 ; [...] F32.9) See assessment and plan for MARY 05/29/2025 MARY (generalized anxiety disorder) (ICD-10 - F41.1) 02/07/2025 MARY (generalized anxiety disorder) (ICD-10 - [...] to the emergency department, or contact the [facility] Crisis Unit/Team. Follow up as scheduled in 4 weeks or sooner if necessary. Follow up with PCP and/or other specialists as advised. NEXT STEP: Consider increasing fluoxetine. Consider increasing propranolol. Consider other medication adjustments. Review labs. 02/07/2025 MDD (major depressive disorder) (ICD-10 - F32.9) See assessment and plan for MARY 01/08/2025 MARY (generalized anxiety disorder) (ICD-10 - [...] to the emergency department, or contact the [facility] Crisis Unit/Team. Follow up as scheduled in 4 weeks or sooner if necessary. Follow up with PCP and/or other specialists as advised. NEXT STEP: Consider increasing fluoxetine. Consider increasing propranolol. Consider other medication adjustments. Review labs. 01/08/2025 MDD (major depressive disorder) (ICD-10 - F32.9) See assessment and plan for MARY 02/13/2025 Leukocytosis (ICD-10 - D72.829) 01/14/2025 Vitamin D deficiency (ICD-10 - E55.9) 01/14/2025 Leukocytosis (ICD-10 - D72.829) 01/14/2025 Neutrophilia (ICD-10 - D72.9) 02/13/2025 Neutrophilia [...] health CRISIS, please reach out to [phone] ([place] [facility]icide [facility] Crisis Lif[facility]), 911, go to the emergency department, or contact the [facility] Crisis Unit/Team. Follow up as scheduled in 4 weeks or sooner if necessary. Follow up with PCP and/or other specialists as advised. NEXT STEP: Consider medication adjustments for anxiety/depressio n as needed. Consider screening for ADHD and treating accordingly. Consider other medication adjustments. Review labs. 02/07/2025 Inattention (ICD-10 - R41.840) Duration (acute/chronic), [...] to the emergency department, or contact the [facility] Crisis Unit/Team. Follow up as scheduled in 4 weeks or sooner if necessary. Follow up with PCP and/or other specialists as advised. NEXT STEP: Consider medication adjustments for anxiety/depressio n as needed. Consider screening for ADHD and treating accordingly. Consider other medication adjustments. Review labs. 01/09/2025 MDD (major depressive disorder) (ICD-10 - F32.9) 06/04/2025 MARY (generalized anxiety disorder) (ICD-10 - F41.1) 06/04/2025 Inattention (ICD-10 - R41.840) Duration (acute/chronic), [...] to the emergency department, or contact the [facility] Crisis Unit/Team. Follow up as scheduled in 4 weeks or sooner if necessary. Follow up with PCP and/or other specialists as advised. NEXT STEP: Consider medication adjustments for anxiety/depressio n as needed. Consider screening for ADHD and treating accordingly. Consider other medication adjustments. Review labs. 01/09/2025 Inattention (ICD-10 - R41.840) 02/07/2025 Over weight (ICD-10 - E66.3) 01/08/2025 Over weight (ICD-10 - E66.3) 01/08/2025 Screening for thyroid disorder (ICD-10 - Z13.29) 01/09/2025 Over weight (ICD-10 - E66.3) 01/09/2025 Screening for thyroid disorder (ICD-10 - Z13.29) 01/08/2025 Screening for hyperlipidemia (ICD-10 - Z13.220) 01/09/2025 Screening for hyperlipidemia (ICD-10 - Z13.220) 01/08/2025 Screening for diabetes mellitus (ICD-10 - Z13.1) 01/09/2025 Screening for diabetes mellitus (ICD-10 - Z13.1) Plan Of Treatment No Information Insurance Providers Payer Name Payer Address Payer Phone Subscriber Number Group Number Insured Name Patient Relationship to Insured Coverage Start Date Coverage End Date [facility] Attn Claims Department [address] [place] [address] [phone] [id number] Manjula Head Self - patient is the insured [employer] Att[employer] Claims Department [address] [place] [address] [phone] [id number] Manjula Head Self - patient is the insured 5 Medical (General) History Medical History History ICD Code anxiety depression pcos
--- OUTSIDE RECORDS SUMMARY | 2025-08-14 20:53 | XMS_ITS | Encounter Summary ---
Author Organization [facility] Address [address] [place] [address] Care Team Providers Care Belt Maker Name Role Phone Eunice Garcia MD Primary Care Provider [phone] Encounter Details Date Type Department Care Team (Late st Contact Info) Description 11/16/2018 Telephone [facility] - [address] [address] Alicia Alex MD [address] [place] [id number] Social History Tobacco Use Types Packs/Day Years Used Date Smoking Tobacco: Passive Smo ke Exposure - Never Smoker Smokeless Tobacco: Never Comments:Parents smoke outsi de Alcohol Use Standard Drinks/Week Comments No 0 (1 standard drink = 0.6 oz pur e alcohol) Comments No Sex and Gender Information Value Date Recorded Sex Assigned at Not on file Legal Sex Female 9:56 AM LICENSED CLINICAL SOCIAL WORKER Gender Identity Not on file Sexual Orientation Not on file documented as of this encounter Miscellaneous Notes * Telephone Encounter - Siobhan Bloom - 11/19/2018 11:51 AM CST Spoke with mom informed of message below NSED CLINICAL SOCIAL WORKER * Telephone Encounter - Aga Mckeon RN - 11/19/2018 11:40 AM CST LM for mom to call office to let her know the prescription has been sent. NSED CLINICAL SOCIAL WORKER * Telephone Encounter - Alicia Alex MD - 11/19/2018 11:31 AM LICENSED CLINICAL SOCIAL WORKER EKG overall normal. I sent the prescription for Elavil that we discussed. NSED CLINICAL SOCIAL WORKER * Telephone Encounter - Aga Mckeon RN - 11/19/2018 10:29 AM CST Received EKG. Placed in Dr. Alex's mailbox. NSED CLINICAL SOCIAL WORKER * Telephone Encounter - Tammy Connell RN - 11/19/2018 8:45 AM LICENSED CLINICAL SOCIAL WORKER Spoke with Ricky Fair had EKG done @ [facility] in [place]. [place] will fax results to our office to be reviewed. NSED CLINICAL SOCIAL WORKER * Telephone Encounter - Siobhan Bloom - 11/16/2018 3:14 PM CST Patient LM wants to know if our office received EKG results. NSED CLINICAL SOCIAL WORKER documented in this encounter Plan of Treatment Not on file documented as of this encounter Goals Goal Patient Goal Type Associated Problems Recent Progress Patient-Stated? Author Exercise 3X per week (30 min per time) Exercise On track( 018 9:23 AM LICENSED CLINICAL SOCIAL WORKER) No Shannan Ochoa RN Use safety retraint in car Lifestyle On track( 020 11:17 AM CDT) No Shannan Ochoa RN documented as of this encounter Visit Diagnoses Not on filedocumented in this encounter Care Teams Belt Maker Relationship Specialty Start Date End Date Eunice Garcia MD PCP - General 01/05/12 documented as of this encounter
== END 2025-08-14 15:18 | disposition home or self-care (01) ==
LOC: ANHLAB 15:18
PROVIDERS: Visit Provider Advanced Practice Midwife
DX: O20.0 Threatened abortion (principal); Z3A.00 Weeks of gestation of pregnancy not specified
CPT/HCPCS: 36415; 84702